=== PATIENT | female | born 1975 | race Caucasian/White ===

== ENCOUNTER → 2017-02-14 | Outpatient (CLI) | payer OTHER ==
[~2017-02-14] MED LIST: ACET-2267 PO; ASPI-992 PO; CEFD300C3 PO; HYDR25TA4 PO; IBUP-30 PO; LISI-552 PO; METO-272 PO; PARO20TA5 PO; PROP40TA5 PO; RT-ALBUINH IH
--- NOTE | 2017-02-14 13:42 | Diagnostic Imaging Report ---
INDICATION: Left knee pain. TECHNIQUE: AP and lateral views of the left knee were obtained. FINDINGS: There is mild medial and lateral joint space narrowing with osteophyte formation. There is more prominent patellofemoral spurring. There is no joint effusion. There is no fracture. IMPRESSION: Degenerative findings in the left knee as described above with no acute bony abnormality. Dictated by: Dictated on workstation # [id number]
== END ==
LOC: RAD 12:30
PROVIDERS: ATTEND Surgery
DX: Z02.71 Encounter for disability determination (principal)
CPT/HCPCS: 73560

== ENCOUNTER → 2017-03-30 | Outpatient (CLI) | payer MEDICAID, OTHER ==
[~2017-03-30] MED LIST changes: +RT-ALBUTEROL SULF 2.5 MG/3 ML PRE-MIX VIAL IH ONE
== END ==
LOC: RT 13:34
PROVIDERS: ATTEND Surgery
DX: Z02.71 Encounter for disability determination (principal); J44.9 Chronic obstructive pulmonary disease, unspecified; I10 Essential (primary) hypertension; E66.01 Morbid (severe) obesity due to excess calories; F41.9 Anxiety disorder, unspecified; F32.9 Major depressive disorder, single episode, unspecified; R48.0 Dyslexia and alexia
CPT/HCPCS: 94060; 94640

== ENCOUNTER → 2017-09-03 | Outpatient (CLI) | payer OTHER ==
--- NOTE | 2017-09-03 17:27 | Diagnostic Imaging Report ---
CLINICAL INDICATION: Patient with knee pain with standing or walking for two years. Patient has no known injury. EXAM: X-ray of the left knee, AP and lateral views. COMPARISON: X-ray of the left knee dated 02/14/2017. FINDINGS: There is no interval acute fracture or dislocation. There are stable bsfy-ut-bmzijdsd tricompartmental spurs seen. There is no significant compartment narrowing on these non-weightbearing views. There is no knee effusion. Relative lucent appearance of the lateral aspect of the proximal fibula, likely related to shadow of the adjacent tibia. IMPRESSION: Stable degenerative disease of the left knee with no acute fracture or dislocation. Dictated by: Dictated on workstation # [id number]
== END ==
LOC: RT 14:46
PROVIDERS: ATTEND Surgery
DX: Z02.71 Encounter for disability determination (principal)
CPT/HCPCS: 73560; 94060; 94640; 94729

== ENCOUNTER 2019-06-16 12:31 | Emergency (ER) | payer MEDICAID, OTHER ==
[~2019-06-16] VITALS: Ht 162.6 cm; Wt 166.0 kg
[~2019-06-16 12:31] MED LIST changes: -METO-272 PO; +METO-370 PO; -RT-ALBUTEROL SULF 2.5 MG/3 ML PRE-MIX VIAL IH ONE
[2019-06-16] MEDS ORDERED: ONDANSETRON 4 MG (ZOFRAN) ORAL DISSOLVE TAB PO STA (12:50)
--- NOTE | 2019-06-16 12:55 | ED Abdominal Pain ---
General Chief Complaint: Abdominal/GI Problems Stated Complaint: CONSTIPATION History of Present Illness Date Seen by Provider: Jun 16, 2019 Time Seen by Provider: 12:40 Initial Comments 43-year-old morbidly obese female presents for constipation 10 days. She takes hydrocodone regularly for low back pain. She reports she is instructed to take a stool softener daily but she ran out approximately a week ago and hasn't been taking them. For the last 2 days she's been taking vdye-gst-dbxaaak educations for constipation with no relief. She has not tried an enema or suppository. She sees El Petersen APRN at [facility]. Timing/Duration: 1 Week, Getting Worse Severity/Quality: Moderate Location: Generalized Abdomen Radiation: No Radiation Activities at Onset: None Modifying Factors: Improves With Defecating Associated Symptoms: Denies Symptoms, Nausea/Vomiting Allergies and Home Medications Allergies Coded Allergies: No Known Drug Allergies (Unverified , 01/12/16) Home Medications Acetaminophen 500 Mg Tablet, 500 MG PO Q6H PRN for PAIN, (Reported) Albuterol Sulfate 8.5 Gm Hfa.aer.ad, 2 PUFF IH Q4H PRN for SHORTNESS OF BREATH, (Reported) Budesonide/Formoterol Fumarate 10.2 Gm Hfa.aer.ad, 2 PUFF IH BID, (Reported) Cefdinir 300 Mg Capsule, 300 MG PO BID Take twice daily until all gone. Do not stop if you feel better. Prescribed by: ASHOK GORDILLO on 01/17/16938 Hydrochlorothiazide 25 Mg Tablet, 25 MG PO DAILY Prescribed by: ASHOK GORDILLO on 01/17/16938 Lisinopril 20 Mg Tablet, 40 MG PO DAILY Prescribed by: ASHOK GORDLILO on 01/17/16938 Metoprolol Succinate 50 Mg Tab.er.24h, 50 MG PO HS Prescribed by: ASHOK GORDILLO on 01/17/16938 Paroxetine HCl 20 Mg Tablet, 20 MG PO DAILY Prescribed by: ASHOK GORDILLO on 01/17/16938 Tiotropium Millen 1 Inh Aerp, 1 INH IH DAILY, (Reported) Patient Home Medication List Home Medication List Reviewed: Yes Review of Systems Review of Systems Constitutional: no symptoms reported, see HPI Gastrointestinal: See HPI, Abdomen Distended, Abdominal Pain, Constipated All Other Systems Reviewed Negative Unless Noted: Yes Past Jmfzfoy-Meokfm-Kylveu Hx Past Med/Social Hx: Reviewed Nursing Past Med/Soc Hx Patient Social History Recent Foreign Travel: No Contact w/Someone Who Travel: No Seasonal Allergies Seasonal Allergies: Yes Past Medical History Section, Gallbladder Reproductive Disorders: No 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 12.6oz. 173.261044wx; 64.07 BMI Method: General Appearance: WD/WN, obese Respiratory: chest non-tender, lungs clear, normal breath sounds Cardiovascular: normal peripheral pulses, regular rate, rhythm Gastrointestinal: normal bowel sounds, distended; No rebound; tenderness Neurologic/Psychiatric: no motor/sensory deficits, alert, normal mood/affect, oriented x 3 Skin: normal color, warm/dry Progress/Results/Core Measures Results/Orders My Orders Orders - STEVE RANDOLPH Ua Culture If Indicated (06/16/19 12:40) Ibuprofen Tablet (Motrin Tablet) (06/16/19 13:00) Ondansetron Oral Dissolve Tab (Zofran (06/16/19 12:50) Na Phos/Na Biphos Enema (Fleet Enema Brid (06/16/19 13:00) Magnesium Hydroxide Oral Susp (Mom Oral (06/16/19 13:45) Medications Given in ED Current Medications Medications Dose Ordered Sig/Beth Route Start Time Stop Time Status Last Admin Dose Admin Ibuprofen 800 mg ONCE ONCE PO 06/16/19 13:00 06/16/19 13:01 DC 06/16/19 12:59 800 MG Magnesium Hydroxide 30 ml ONCE ONCE PO 06/16/19 13:45 06/16/19 13:46 DC 06/16/19 13:48 30 ML Sodium Biphosphate/ Sodium Phosphate 1 ea ONCE ONCE TN 06/16/19 13:00 06/16/19 13:01 DC 06/16/19 13:00 1 EA Vital Signs/I&O 06/16/19 06/16/19 12:34 14:14 Temp 97.7 97.5 Pulse 129 109 Resp 24 20 B/P (MAP) 140/108 (119) 111/60 (77) Pulse Ox 95 95 O2 Delivery Room Air Room Air Progress Progress Note : Time: 12:40 Progress Note patient seen and evaluated. Will give Ibuprofen 800 mg for pain, Zofran 8 mg for nausea and a fleets enema. Discussed with patient the importance of taking her stool softener daily with her hydrocodone and not going more than 3 days without a BM. She also needs to increase her water intake. 1310 Fleets Enema administered, patient tolerated. No internal or external hemorrhoids appreciated. Crush patient to retain enema for 10 minutes. 1335 patient having small, hard stools. She is passing with minimal difficulty. Will give milk of magnesia 30 ML's. 1345 patiet passed large, softer stool. Discharge instructions and return precautions reviewed with the patient. All questions answered. Departure Impression Primary Impression: Constipation Qualified Codes: K59.03 - Drug induced constipation Disposition: 01 HOME, SELF-CARE Condition: Improved Departure-Patient Inst. Decision time for Depature: 13:30 Referrals: [facility],LOCAL PHYSICIAN (PCP) Primary Care Physician Patient Instructions: Constipation, Adult (DC) Add. Discharge Instructions: Increase water in diet, 16 ounces every 2 hours while awake. Resume taking your stool softener with your hydrocodone. Follow-up with your primary care provider if symptoms do not improve or worsen. Take MiraLAX, 1 capful twice daily, may decrease to once daily when having daily bowel movements. Drink Prune Juice or eat prunes, twice daily. Return to emergency department for new, urgent health care needs. All discharge instructions reviewed with patient and/or family. Voiced understanding. Copy Copies To 1: KATHERINE WRIGHT AMY ARNP Jun 16, 2019 12:55
[2019-06-16] MEDS ORDERED: IBUPROFEN 800 MG (MOTRIN) TAB PO ONE (13:00)
[2019-06-16] MEDS ORDERED: FLEET ENEMA ADULT 1 EA BTL PR ONE (13:00)
--- OUTSIDE RECORDS SUMMARY | 2019-06-16 13:08 | XMS REPORT ---
Author Author ARA ISRAEL Organization [facility] Address [address] [place] [address] Care Team Providers Care Right Of Way Supervisor Name Role Phone ARA ISRAEL Unavailable PROBLEMS Type Condition ICD9-CM Code NBF28-IC Code Onset Dates Condition Status SNOMED Code Problem Morbid obesity, unspecified obesity type E66.01 Active 253020823 Problem Morbid obesity due to excess calories E66.01 Active 540657702 Problem Other chronic pain G89.29 Active 50676005 Problem Hypertension, benign I10 Active 27802890 Problem Polyneuropathy G62.9 Active 07317050 Problem Chronic obstructive pulmonary disease, unspecified COPD type J44.9 Active 55849074 Problem Anxiety F41.9 Active 38183116 Problem Primary insomnia F51.01 Active 6168767 Problem Mood disorder F39 Active 39911759 ALLERGIES No Information ENCOUNTERS Encounter Location Date Diagnosis [place] [id number] [place] [id number] 27 Sep, 2018 [place] [id number] [place] [address] 15 Sep, 2018 [place] [id number] [place] [address] Sep, [facility] [address] [address] 14 Sep, 2018 Polyneuropathy G62.9 ; Anxiety F41.9 ; Hypertension, benign I10 and Other chronic pain G89.29 [facility] [address] [address] 13 Sep, 2018 Morbid obesity, unspecified obesity type E66.01 ; Anxiety F41.9 and Other chronic pain G89.29 [facility] [address] [address] Aug, [facility] [id number] [place] [address] Aug, Morbid obesity, unspecified obesity type E66.01 and Other chronic pain G89.29 [facility] [id number] [place] [address] Aug, [facility] [id number] [place] [address] Jul, Anxiety F41.9 [facility] [id number] [place] [address] Jun, Anxiety F41.9 [facility] [id number] [place] [address] Jun, Polyneuropathy G62.9 [facility] [id number] [place] [address] May, Anxiety F41.9 [facility] [id number] [place] [address] May, Polyneuropathy G62.9 ; Anxiety F41.9 and Hypertension, benign I10 [facility] [id number] [place] [address] Apr, [facility] [id number] [place] [address] Apr, Anxiety F41.9 [facility] [id number] [place] [address] March, [facility] [id number] [place] [address] March, Anxiety F41.9 [facility] [id number] [place] [address] March, Anxiety F41.9 [facility] [id number] [place] [address] Feb, Chronic obstructive pulmonary disease, unspecified COPD type J44.9 [facility] [id number] [place] [address] Feb, [facility] [address] [address] Feb, [facility] [id number] [place] [address] Feb, Anxiety F41.9 [facility] [address] [address] Jan, Anxiety F41.9 [facility] [address] [address] Dec, Anxiety F41.9 [facility] [address] [address] Dec, [facility] [address] [address] Nov, BMI 50.0-59.9, adult Z68.43 ; Other chronic pain G89.29 ; Anxiety F41.9 and Vagina, candidiasis B37.3 [facility] [id number] [place] [address] Nov, Anxiety F41.9 [facility] [id number] [place] [address] Nov, Acute nasopharyngitis J00 and BMI 50.0-59.9, adult Z68.43 [facility] [id number] [place] [address] Nov, [facility] [address] [address] Oct, Anxiety F41.9 [facility] [id number] [place] [address] Oct, [facility] [address] [address] Sep, Anxiety F41.9 [facility] [id number] [place] [address] Sep, [facility] [id number] [place] [address] Sep, Anxiety F41.9 [facility] [id number] [place] [address] Aug, Primary insomnia F51.01 [facility] [address] [address] Aug, [facility] [address] [address] Aug, Anxiety F41.9 [facility] [address] [address] Jul, Primary insomnia F51.01 [facility] [address] [address] Jul, [facility] [id number] [place] [address] 08 Jul, 2017 Strep throat J02.0 [facility] [id number] [place] [address] Jul, Anxiety F41.9 [facility] [id number] [place] [address] Jun, Primary insomnia F51.01 ; Mood disorder F39 and Polyneuropathy G62.9 [facility] [id number] [place] [address] Jun, Anxiety F41.9 and Other chronic pain G89.29 [facility] [id number] [place] [address] May, Chronic obstructive pulmonary disease, unspecified COPD type J44.9 [facility] [address] [address] May, Anxiety F41.9 and Other chronic pain G89.29 [facility] [id number] [place] [address] Apr, Anxiety F41.9 and Other chronic pain G89.29 [facility] [id number] [place] [address] March, Morbid obesity due to excess calories E66.01 [facility] [id number] [place] [address] Feb, Morbid obesity due to excess calories E66.01 and SOB (shortness of breath) R06.02 [facility] [id number] [place] [address] Feb, [facility] [id number] [place] [address] Jan, [facility] [id number] [place] [address] Jan, [facility] [id number] [place] [address] Jan, Morbid obesity due to excess calories E66.01 [facility] [id number] [place] [address] Jan, [facility] [id number] [place] [address] Dec, [facility] [id number] [place] [address] Dec, [facility] [id number] [place] [address] Nov, [facility] [id number] [place] [address] Nov, [facility] [address] [address] Oct, [facility] [address] [place] [address] Oct, Sore throat J02.9 and Strep throat J02.0 [facility] [address] [place] [address] Oct, [facility] [id number] [place] [address] Oct, [facility] [id number] [place] [address] Oct, [facility] [id number] [place] [address] Sep, [facility] [id number] [place] [address] Sep, [facility] [id number] [place] [address] Aug, [facility] [id number] [place] [address] Aug, Morbid obesity, unspecified obesity type E66.01 ; Pain in right leg M79.604 ; Pain of left leg M79.605 ; Other chronic pain G89.29 and Low back pain M54.5 [facility] [address] [place] [address] Aug, [facility] [id number] [place] [address] Aug, [facility] [address] [place] [address] Jul, [facility] [id number] [place] [address] Jul, [facility] [address] [place] [address] Jun, [facility] [id number] [place] [address] Jun, Anxiety F41.9 ; Chronic obstructive pulmonary disease, unspecified COPD type J44.9 ; Low back pain M54.5 and Other chronic pain G89.29 [facility] [id number] [place] [address] Jun, [facility] [address] [address] Jun, [facility] [address] [address] May, Other chronic pain G89.29 ; Pain in left knee M25.562 and Anxiety F41.9 [place] [address] [address] May, [place] [address] [address] Apr, [place] [address] [address] March, MARIELENA (obstructive sleep apnea) G47.33 [place] [id number] [place] [address] Feb, [facility] [id number] [place] [address] Feb, MARIELENA (obstructive sleep apnea) G47.33 and Acute upper respiratory infection, unspecified J06.9 [place] [id number] [place] [address] Feb, [facility] [id number] [place] [address] Jan, Pain in right leg M79.604 ; Pain of left leg M79.605 and Obesity E66.9 [facility] [id number] [place] [address] Jan, [place] [address] [address] Jan, [facility] [address] [facility] [id number] [address] Jan, COPD exacerbation J44.1 ; 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 ; Resistant hypertension I10 ; Nonischemic cardiomyopathy I42.9 and Anxiety about health F41.8 [facility] [address] [facility] [id number] [address] Dec, [place] [address] [facility] [id number] [address] Dec, Hypertension, benign I10 ; Tachycardia R00.0 ; Anxiety F41.9 and Pain in unspecified knee M25.569 IMMUNIZATIONS No Known Immunizations SOCIAL HISTORY Never Assessed REASON FOR VISIT med refill PLAN OF CARE VITAL SIGNS MEDICATIONS Medication Instructions Dosage Frequency Start Date End Date Duration Status Meloxicam 7.5 MG Orally 2 times a day 1 tablet 12h 30 Active RESULTS No Results PROCEDURES No Known procedures INSTRUCTIONS MEDICATIONS ADMINISTERED No Known Medications MEDICAL (GENERAL) HISTORY Type Description Date Medical History Hx of pneumonia Medical History HTN Medical History chronic pain in knees and back Medical History anxiety Surgical History x2 Surgical History cholecystectomy Surgical History tubal ligation Hospitalization History [facility] Pneumonia 01/12/16
--- OUTSIDE RECORDS SUMMARY | 2019-06-16 13:08 | XMS REPORT ---
Author Author [facility] Address [address] [place] [address] Care Team Providers Care Chief Dog License Inspector Name Role Phone RENETTAFCO RHOADES Unavailable PROBLEMS Type Condition ICD9-CM Code UEW05-BG Code Onset Dates Condition Status SNOMED Code Problem Morbid obesity, unspecified obesity type E66.01 Active 766070833 Problem Morbid obesity due to excess calories E66.01 Active 567054656 Problem Other chronic pain G89.29 Active 18352731 Problem Hypertension, benign I10 Active 95474866 Problem Polyneuropathy G62.9 Active 82977665 Problem Chronic obstructive pulmonary disease, unspecified COPD type J44.9 Active 88726369 Problem Anxiety F41.9 Active 27445047 Problem Primary insomnia F51.01 Active 8063489 Problem Mood disorder F39 Active 36526298 ALLERGIES No Known Allergies ENCOUNTERS Encounter Location Date Diagnosis [facility] [id number] [place] [address] Oct, Other viral agents as the cause of diseases classified elsewhere B97.89 ; Acute nasopharyngitis J00 and BMI 60.0-69.9, adult Z68.44 [facility] [id number] [place] [address] Oct, Morbid obesity, unspecified obesity type E66.01 [facility] [id number] [place] [address] Sep, [facility] [address] [address] Sep, [facility] [id number] [place] [address] 14 Sep, 2018 [facility] [id number] [place] [address] Sep, Polyneuropathy G62.9 ; Anxiety F41.9 ; Hypertension, benign I10 and Other chronic pain G89.29 [facility] [address] [address] Sep, Morbid obesity, unspecified obesity type E66.01 ; Anxiety F41.9 and Other chronic pain G89.29 [facility] [address] [address] Aug, [facility] [address] [address] Aug, Morbid obesity, unspecified obesity type E66.01 and Other chronic pain G89.29 [facility] [address] [address] Aug, [facility] [address] [address] Jul, Anxiety F41.9 [address] [address] Jun, Anxiety F41.9 [address] [place] [address] Jun, Polyneuropathy G62.9 [address] [address] May, Anxiety F41.9 [id number] [place] [address] May, Polyneuropathy G62.9 ; Anxiety F41.9 and Hypertension, benign I10 [facility] [address] [address] Apr, [facility] [address] [address] Apr, Anxiety F41.9 [address] [address] March, [facility] [id number] [place] [address] March, Anxiety F41.9 [facility] [address] [address] March, Anxiety F41.9 [facility] [address] [address] Feb, Chronic obstructive pulmonary disease, unspecified COPD type J44.9 [facility] [address] [address] Feb, [facility] [address] [address] Feb, [facility] [address] [address] Feb, Anxiety F41.9 [facility] [address] [address] Jan, Anxiety F41.9 [facility] [address] [address] Dec, Anxiety F41.9 [facility] [id number] [place] [address] Dec, [facility] [address] [address] Nov, BMI 50.0-59.9, adult Z68.43 ; Other chronic pain G89.29 ; Anxiety F41.9 and Vagina, candidiasis B37.3 [facility] [address] [address] Nov, Anxiety F41.9 [facility] [id number] [place] [address] Nov, Acute nasopharyngitis J00 and BMI 50.0-59.9, adult Z68.43 [facility] [id number] [place] [address] Nov, [facility] [id number] [place] [address] Oct, Anxiety F41.9 [facility] [id number] [place] [address] Oct, [facility] [id number] [place] [address] Sep, Anxiety F41.9 [facility] [id number] [place] [address] Sep, [facility] [id number] [place] [address] Sep, Anxiety F41.9 [facility] [id number] [place] [address] Aug, Primary insomnia F51.01 [facility] [id number] [place] [address] Aug, [facility] [id number] [place] [address] Aug, Anxiety F41.9 [facility] [id number] [place] [address] Jul, Primary insomnia F51.01 [facility] [id number] [place] [address] Jul, [facility] [id number] [place] [address] Jul, Strep throat J02.0 [facility] [id number] [place] [address] Jul, Anxiety F41.9 [facility] [id number] [place] [address] Jun, Primary insomnia F51.01 ; Mood disorder F39 and Polyneuropathy G62.9 [facility] [address] [place] [address] Jun, Anxiety F41.9 and Other chronic pain G89.29 [facility] [id number] [place] [address] May, Chronic obstructive pulmonary disease, unspecified COPD type J44.9 [facility] [id number] [place] [address] May, Anxiety F41.9 and Other chronic pain G89.29 [facility] [id number] [place] [address] Apr, Anxiety F41.9 and Other chronic pain G89.29 [facility] [id number] [place] [address] March, Morbid obesity due to excess calories E66.01 [facility] [id number] [place] [address] Feb, Morbid obesity due to excess calories E66.01 and SOB (shortness of breath) R06.02 [facility] [id number] [place] [address] Feb, [id number] [place] [address] Jan, [facility] [id number] [place] [address] Jan, [facility] [id number] [place] [address] Jan, Morbid obesity due to excess calories E66.01 [facility] [id number] [place] [address] Jan, [facility] [id number] [place] [address] Dec, [facility] [address] [place] [address] Dec, [facility] [id number] [place] [address] Nov, [facility] [id number] [place] [address] Nov, [facility] [id number] [place] [address] Oct, [facility] [id number] [place] [address] Oct, Sore throat J02.9 and Strep throat J02.0 [facility] [id number] [place] [address] Oct, [facility] [id number] [place] [address] Oct, [facility] [id number] [place] [address] Oct, [facility] [id number] [place] [address] Sep, [facility] [id number] [place] [address] Sep, [facility] [address] [place] [address] Aug, [facility] [id number] [place] [address] Aug, Morbid obesity, unspecified obesity type E66.01 ; Pain in right leg M79.604 ; Pain of left leg M79.605 ; Other chronic pain G89.29 and Low back pain M54.5 [facility] [address] [address] Aug, [facility] [id number] [place] [address] Aug, [facility] [address] [place] [address] Jul, [facility] [id number] [place] [address] Jul, [facility] [id number] [place] [address] Jun, [facility] [id number] [place] [address] Jun, Anxiety F41.9 ; Chronic obstructive pulmonary disease, unspecified COPD type J44.9 ; Low back pain M54.5 and Other chronic pain G89.29 [facility] [id number] [place] [address] Jun, [facility] [id number] [place] [address] Jun, [facility] [id number] [place] [address] May, Other chronic pain G89.29 ; Pain in left knee M25.562 and Anxiety F41.9 [facility] [id number] [place] [address] May, [facility] [id number] [place] [address] Apr, [facility] [id number] [place] [address] March, MARIELENA (obstructive sleep apnea) G47.33 [facility] [address] [place] [address] Feb, [facility] [id number] [place] [address] Feb, MARIELENA (obstructive sleep apnea) G47.33 and Acute upper respiratory infection, unspecified J06.9 [facility] [id number] [place] [address] Feb, [address] [place] [address] Jan, Pain in right leg M79.604 ; Pain of left leg M79.605 and Obesity E66.9 [id number] [place] [address] Jan, [address] [address] Jan, [id number] [place] [address] Jan, COPD exacerbation J44.1 ; 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 ; Resistant hypertension I10 ; Nonischemic cardiomyopathy I42.9 and Anxiety about health F41.8 [id number] [place] [address] Dec, [id number] [place] [address] Dec, Hypertension, benign I10 ; Tachycardia R00.0 ; Anxiety F41.9 and Pain in unspecified knee M25.569 IMMUNIZATIONS No Known Immunizations SOCIAL HISTORY Never Assessed REASON FOR VISIT Congestion, cough, fever at night, headache; symptoms x 3-4 days - NIKITA [place] PLAN OF CARE Activity Details Follow Up as needed or reg fu with pcp Reason: VITAL SIGNS Height 66 in 2018-10-30 Weight 373.2 lbs 2018-10-30 Temperature 97.3 degrees Fahrenheit 2018-10-30 Heart Rate 116 bpm 2018-10-30 Respiratory Rate 20 2018-10-30 BMI 60.23 kg/m2 2018-10-30 Blood pressure systolic 100 mmHg 2018-10-30 Blood pressure diastolic 60 mmHg 2018-10-30 MEDICATIONS Medication Instructions Dosage Frequency Start Date End Date Duration Status Meloxicam 7.5 MG Orally 2 times a day 1 tablet 12h 30 Active Tessalon Perles 100 mg Orally Three times a day 1 capsule as needed 8h Oct, 10 days Active Paroxetine HCl 20 MG Orally Once a day 1 tablet in the morning 24h 30 Active Levothyroxine Sodium 25 MCG Orally Once a day 1 tablet on an empty stomach in the morning 24h 15 Sep, 2018 30 day(s) Active [place] 7.5-325 MG Orally every 6 hrs 1 tablet as needed 6h 11 Oct, 2018 28 days Active Cetirizine HCl 10 MG TAKE ONE TABLET BY MOUTH ONCE DAILY NEEDED 30 Active Toprol XL 50 mg Orally Once a day 1 tablet 24h 16 May, 2018 30 day(s) Active Amitriptyline HCl 25 MG TAKE ONE TABLET BY MOUTH ONCE DAILY (MAKE APPOINTMENT TO SEE MIGUEL ANGEL) 30 Active Lisinopril 20 MG TAKE TWO TABLETS BY MOUTH ONCE DAILY 90 Active Clonazepam 0.5 MG Orally Twice a day 1 tablet 12h 29 May, 2016 28 days Active Oxygen 3 L by nasal cannula Active Spiriva HandiHaler 18 MCG INHALE CONTENTS OF ONE CAPSULE BY MOUTH ONCE DAILY (TWO INHALATIONS PER ONE CAPSULE) 30 30 Active GuaiFENesin ER 1200 MG Orally every 12 hrs 1 tablet as needed 12h 12 Oct, 2018 10 days Active Hydrochlorothiazide 25 MG TAKE ONE TABLET BY MOUTH ONCE DAILY 90 Active Symbicort 160-4.5 MCG/ACT INHALE TWO PUFFS BY MOUTH TWICE DAILY 30 Active ProAir HFA 108 (90 Base) MCG/ACT Inhalation every 6 hrs 2 puffs as needed 6h 20 Feb, 2018 Active RESULTS No Results PROCEDURES No Known procedures INSTRUCTIONS MEDICATIONS ADMINISTERED No Known Medications MEDICAL (GENERAL) HISTORY Type Description Date Medical History Hx of pneumonia Medical History HTN Medical History chronic pain in knees and back Medical History anxiety Surgical History x2 Surgical History cholecystectomy Surgical History tubal ligation Hospitalization History [facility] Pneumonia 01/12/16
--- OUTSIDE RECORDS SUMMARY | 2019-06-16 13:08 | XMS REPORT ---
Author Author ARA ISRAEL Organization [facility] Address [address] [place] [address] Care Team Providers Care Fertilizer Mixer Name Role Phone ARA ISRAEL Unavailable PROBLEMS Type Condition ICD9-CM Code YLS73-XT Code Onset Dates Condition Status SNOMED Code Problem Morbid obesity, unspecified obesity type E66.01 Active 355198670 Problem Morbid obesity due to excess calories E66.01 Active 122516587 Problem Other chronic pain G89.29 Active 87254976 Problem Hypertension, benign I10 Active 11452478 Problem Polyneuropathy G62.9 Active 00334899 Problem Chronic obstructive pulmonary disease, unspecified COPD type J44.9 Active 40655180 Problem Anxiety F41.9 Active 60639766 Problem Primary insomnia F51.01 Active 7940021 Problem Mood disorder F39 Active 94336098 ALLERGIES No Information ENCOUNTERS Encounter Location Date Diagnosis [place] [address] [address] Oct, Morbid obesity, unspecified obesity type E66.01 [place] [address] [place] [id number] [place] [phone] 27 Sep, 2018 [place] [address] [place] [id number] [place] [phone] 15 Sep, 2018 [facility] [address] [place] [id number] [place] [phone] 14 Sep, 2018 [place] [address] [place] [id number] [place] [address] 14 Sep, 2018 Polyneuropathy G62.9 ; Anxiety F41.9 ; Hypertension, benign I10 and Other chronic pain G89.29 [facility] [address] [place] [id number] [place] [phone] 13 Sep, 2018 Morbid obesity, unspecified obesity type E66.01 ; Anxiety F41.9 and Other chronic pain G89.29 [facility] [address] [place] [id number] [place] [address] Aug, [facility] [address] [place] [id number] [place] [address] Aug, Morbid obesity, unspecified obesity type E66.01 and Other chronic pain G89.29 [facility] [address] [place] [id number] [place] [phone] Aug, [facility] [address] [place] [id number] [place] [address] Jul, Anxiety F41.9 [facility] [address] [place] [id number] [place] [address] Jun, Anxiety F41.9 [facility] [address] [place] [id number] [place] [address] Jun, Polyneuropathy G62.9 [facility] [address] [place] [id number] [place] [address] May, Anxiety F41.9 [facility] [address] [place] [id number] [place] [phone] May, Polyneuropathy G62.9 ; Anxiety F41.9 and Hypertension, benign I10 [facility] [address] [place] [id number] [place] [address] Apr, [facility] [address] [place] [id number] [place] [address] Apr, Anxiety F41.9 [facility] [address] [place] [id number] [place] [address] March, [facility] [address] [place] [id number] [place] [address] March, Anxiety F41.9 [facility] [address] [place] [id number] [place] [address] March, Anxiety F41.9 [facility] [address] [place] [id number] [place] [address] Feb, Chronic obstructive pulmonary disease, unspecified COPD type J44.9 [facility] [address] [place] [id number] [place] [phone] Feb, [facility] [address] [place] [id number] [place] [phone] Feb, [facility] [address] [address] Feb, Anxiety F41.9 [facility] [address] [address] Jan, Anxiety F41.9 [facility] [address] [address] Dec, Anxiety F41.9 [facility] [address] [address] Dec, [facility] [address] [place] [id number] [place] [address] Nov, BMI 50.0-59.9, adult Z68.43 ; Other chronic pain G89.29 ; Anxiety F41.9 and Vagina, candidiasis B37.3 [facility] [address] [place] [id number] [place] [address] Nov, Anxiety F41.9 [facility] [address] [place] [id number] [place] [address] Nov, Acute nasopharyngitis J00 and BMI 50.0-59.9, adult Z68.43 [facility] [address] [place] [id number] [place] [address] Nov, [facility] [address] [place] [id number] [place] [address] Oct, Anxiety F41.9 [facility] [address] [place] [address] [place] [address] Oct, [facility] [address] [place] [id number] [place] [address] Sep, Anxiety F41.9 [facility] [address] [place] [id number] [place] [address] Sep, [facility] [address] [address] Sep, Anxiety F41.9 [facility] [address] [address] Aug, Primary insomnia F51.01 [facility] [address] [address] Aug, [facility] [address] [address] Aug, Anxiety F41.9 [facility] [address] [place] [id number] [place] [address] Jul, Primary insomnia F51.01 [facility] [address] [place] [id number] [place] [address] Jul, [facility] [address] [place] [id number] [place] [address] Jul, Strep throat J02.0 [facility] [address] [place] [id number] [place] [address] Jul, Anxiety F41.9 [facility] [address] [place] [id number] [place] [address] Jun, Primary insomnia F51.01 ; Mood disorder F39 and Polyneuropathy G62.9 [facility] [address] [place] [id number] [place] [address] Jun, Anxiety F41.9 and Other chronic pain G89.29 [facility] [address] [place] [id number] [place] [address] May, Chronic obstructive pulmonary disease, unspecified COPD type J44.9 [facility] [address] [place] [id number] [place] [address] May, Anxiety F41.9 and Other chronic pain G89.29 [facility] [address] [place] [id number] [place] [address] Apr, Anxiety F41.9 and Other chronic pain G89.29 [facility] [address] [place] [id number] [place] [address] March, Morbid obesity due to excess calories E66.01 [facility] [address] [place] [id number] [place] [address] Feb, Morbid obesity due to excess calories E66.01 and SOB (shortness of breath) R06.02 [facility] [address] [place] [id number] [place] [phone] Feb, [facility] [address] [place] [id number] [place] [address] Jan, [facility] [address] [place] [id number] [place] [address] Jan, [facility] [address] [place] [id number] [place] [address] Jan, Morbid obesity due to excess calories E66.01 [facility] [address] [place] [id number] [place] [address] Jan, [facility] [address] [place] [id number] [place] [address] Dec, [facility] [address] [place] [id number] [place] [address] Dec, [facility] [address] [place] [id number] [place] [address] Nov, [facility] [address] [place] [id number] [place] [address] Nov, [facility] [address] [address] Oct, [facility] [address] [address] Oct, Sore throat J02.9 and Strep throat J02.0 [facility] [address] [address] Oct, [facility] [id number] [place] [address] Oct, [facility] [address] [place] [id number] [place] [address] Oct, [facility] [address] [place] [id number] [place] [address] Sep, [facility] [address] [place] [id number] [place] [address] Sep, [facility] [id number] [place] [address] Aug, [facility] [address] [place] [id number] [place] [address] Aug, Morbid obesity, unspecified obesity type E66.01 ; Pain in right leg M79.604 ; Pain of left leg M79.605 ; Other chronic pain G89.29 and Low back pain M54.5 [facility] [address] [address] Aug, [facility] [address] [address] Aug, [facility] [address] [address] 29 Jul, 2016 [facility] [address] [address] 28 Jul, 2016 [facility] [address] [place] [id number] [place] [address] Jun, [facility] [address] [place] [id number] [place] [address] Jun, Anxiety F41.9 ; Chronic obstructive pulmonary disease, unspecified COPD type J44.9 ; Low back pain M54.5 and Other chronic pain G89.29 [facility] [address] [place] [id number] [place] [address] Jun, [facility] [address] [place] [id number] [place] [address] Jun, [facility] [address] [place] [id number] [place] [address] May, Other chronic pain G89.29 ; Pain in left knee M25.562 and Anxiety F41.9 [facility] [address] [place] [id number] [place] [address] May, [facility] [address] [place] [id number] [place] [address] Apr, [facility] [address] [place] [id number] [place] [address] March, MARIELENA (obstructive sleep apnea) G47.33 [facility] [address] [place] [id number] [place] [phone] Feb, [facility] [address] [place] [id number] [place] [address] Feb, MARIELENA (obstructive sleep apnea) G47.33 and Acute upper respiratory infection, unspecified J06.9 [facility] [address] [place] [id number] [place] [address] Feb, [facility] [address] [place] [id number] [place] [address] Jan, Pain in right leg M79.604 ; Pain of left leg M79.605 and Obesity E66.9 [facility] [address] [place] [id number] [place] [address] Jan, [facility] [address] [facility] [id number] [address] Jan, [place] [address] [place] [id number] [address] Jan, COPD exacerbation J44.1 ; 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 ; Resistant hypertension I10 ; Nonischemic cardiomyopathy I42.9 and Anxiety about health F41.8 [place] [address] [place] [id number] [address] Dec, [place] [address] [place] [id number] [address] Dec, Hypertension, benign I10 ; Tachycardia R00.0 ; Anxiety F41.9 and Pain in unspecified knee M25.569 IMMUNIZATIONS No Known Immunizations SOCIAL HISTORY Never Assessed REASON FOR VISIT Controlled Med Refill PLAN OF CARE VITAL SIGNS MEDICATIONS Medication Instructions Dosage Frequency Start Date End Date Duration Status Clonazepam 0.5 MG Orally Twice a day 1 tablet 12h May, 28 days Active [place] 7.5-325 MG Orally every 6 hrs 1 tablet as needed 6h Oct, 28 days Active RESULTS No Results PROCEDURES No Known procedures INSTRUCTIONS MEDICATIONS ADMINISTERED No Known Medications MEDICAL (GENERAL) HISTORY Type Description Date Medical History Hx of pneumonia Medical History HTN Medical History chronic pain in knees and back Medical History anxiety Surgical History x2 Surgical History cholecystectomy Surgical History tubal ligation Hospitalization History [facility] Pneumonia 01/12/16
--- OUTSIDE RECORDS SUMMARY | 2019-06-16 13:09 | XMS REPORT ---
Author Author ARA ISRAEL Organization [facility] Address [address] [place] [address] Care Team Providers Care Atmospheric Technician Name Role Phone ARA ISRAEL Unavailable PROBLEMS Type Condition ICD9-CM Code MUE71-AK Code Onset Dates Condition Status SNOMED Code Problem Morbid obesity, unspecified obesity type E66.01 Active 758879858 Problem Morbid obesity due to excess calories E66.01 Active 182902488 Problem Other chronic pain G89.29 Active 51052763 Problem Hypertension, benign I10 Active 08828833 Problem Polyneuropathy G62.9 Active 99997357 Problem Chronic obstructive pulmonary disease, unspecified COPD type J44.9 Active 19023067 Problem Anxiety F41.9 Active 47911362 Problem Primary insomnia F51.01 Active 7211809 Problem Mood disorder F39 Active 28012022 ALLERGIES No Information ENCOUNTERS Encounter Location Date Diagnosis [facility] [id number] [place] [address] 14 Sep, 2018 [facility] [id number] [place] [address] 14 Sep, 2018 Polyneuropathy G62.9 ; Anxiety F41.9 ; Hypertension, benign I10 and Other chronic pain G89.29 [facility] [address] [place] [address] Sep, Morbid obesity, unspecified obesity type E66.01 ; Anxiety F41.9 and Other chronic pain G89.29 [facility] [id number] [place] [address] 24 Aug, 2018 [place] [id number] [place] [address] 17 Aug, 2018 Morbid obesity, unspecified obesity type E66.01 and Other chronic pain G89.29 [facility] [id number] [place] [address] Aug, [facility] [id number] [place] [address] Jul, Anxiety F41.9 [facility] [id number] [place] [address] Jun, Anxiety F41.9 [facility] [address] [address] Jun, Polyneuropathy G62.9 [facility] [id number] [place] [address] May, Anxiety F41.9 [facility] [id number] [place] [address] May, Polyneuropathy G62.9 ; Anxiety F41.9 and Hypertension, benign I10 [facility] [id number] [place] [address] Apr, [facility] [id number] [place] [address] Apr, Anxiety F41.9 [facility] [id number] [place] [address] March, [facility] [id number] [place] [address] March, Anxiety F41.9 [facility] [id number] [place] [address] March, Anxiety F41.9 [facility] [id number] [place] [address] Feb, Chronic obstructive pulmonary disease, unspecified COPD type J44.9 [facility] [id number] [place] [address] Feb, [facility] [id number] [place] [address] Feb, [facility] [id number] [place] [address] Feb, Anxiety F41.9 [facility] [address] [address] Jan, Anxiety F41.9 [facility] [address] [address] Dec, Anxiety F41.9 [facility] [address] [address] Dec, [facility] [address] [address] Nov, BMI 50.0-59.9, adult Z68.43 ; Other chronic pain G89.29 ; Anxiety F41.9 and Vagina, candidiasis B37.3 [facility] [address] [address] Nov, Anxiety F41.9 [facility] [id number] [place] [address] Nov, Acute nasopharyngitis J00 and BMI 50.0-59.9, adult Z68.43 [facility] [id number] [place] [address] Nov, [facility] [address] [address] Oct, Anxiety F41.9 [facility] [id number] [place] [address] Oct, [facility] [address] [address] Sep, Anxiety F41.9 [facility] [id number] [place] [address] Sep, [facility] [address] [address] Sep, Anxiety F41.9 [facility] [id number] [place] [address] Aug, Primary insomnia F51.01 [facility] [id number] [place] [address] Aug, [facility] [id number] [place] [address] Aug, Anxiety F41.9 [facility] [id number] [place] [address] Jul, Primary insomnia F51.01 [facility] [id number] [place] [address] Jul, [facility] [id number] [place] [address] Jul, Strep throat J02.0 [facility] [id number] [place] [address] Jul, Anxiety F41.9 [facility] [id number] [place] [address] Jun, Primary insomnia F51.01 ; Mood disorder F39 and Polyneuropathy G62.9 [facility] [id number] [place] [address] Jun, Anxiety F41.9 and Other chronic pain G89.29 [facility] [id number] [place] [address] May, Chronic obstructive pulmonary disease, unspecified COPD type J44.9 [facility] [id number] [place] [address] May, Anxiety F41.9 and Other chronic pain G89.29 [facility] [id number] [place] [address] Apr, Anxiety F41.9 and Other chronic pain G89.29 [facility] [address] [address] March, Morbid obesity due to excess calories E66.01 [facility] [address] [place] [address] Feb, Morbid obesity due to excess calories E66.01 and SOB (shortness of breath) R06.02 [facility] [id number] [place] [address] Feb, [facility] [id number] [place] [address] Jan, [facility] [id number] [place] [address] Jan, [facility] [id number] [place] [address] Jan, Morbid obesity due to excess calories E66.01 [facility] [id number] [place] [address] Jan, [facility] [id number] [place] [address] Dec, [facility] [id number] [place] [address] Dec, [facility] [address] [place] [address] Nov, [facility] [address] [place] [address] Nov, [facility] [id number] [place] [address] Oct, [facility] [address] [place] [address] Oct, Sore throat J02.9 and Strep throat J02.0 [facility] [address] [place] [address] Oct, [facility] [address] [place] [address] Oct, [facility] [id number] [place] [address] Oct, [facility] [address] [place] [address] Sep, [facility] [id number] [place] [address] Sep, [facility] [address] [place] [address] Aug, [facility] [address] [place] [address] Aug, Morbid obesity, unspecified obesity type E66.01 ; Pain in right leg M79.604 ; Pain of left leg M79.605 ; Other chronic pain G89.29 and Low back pain M54.5 [facility] [address] [place] [address] Aug, [facility] [id number] [place] [address] Aug, [facility] [id number] [place] [address] Jul, [facility] [address] [place] [address] Jul, [facility] [address] [place] [address] Jun, [facility] [id number] [place] [address] Jun, Anxiety F41.9 ; Chronic obstructive pulmonary disease, unspecified COPD type J44.9 ; Low back pain M54.5 and Other chronic pain G89.29 [facility] [address] [place] [address] Jun, [facility] [id number] [place] [address] Jun, [facility] [id number] [place] [address] May, Other chronic pain G89.29 ; Pain in left knee M25.562 and Anxiety F41.9 [facility] [address] [address] May, [facility] [id number] [place] [address] Apr, [facility] [id number] [place] [address] March, MARIELENA (obstructive sleep apnea) G47.33 [facility] [id number] [place] [address] Feb, [facility] [id number] [place] [address] Feb, MARIELENA (obstructive sleep apnea) G47.33 and Acute upper respiratory infection, unspecified J06.9 [facility] [id number] [place] [address] Feb, [facility] [id number] [place] [address] Jan, Pain in right leg M79.604 ; Pain of left leg M79.605 and Obesity E66.9 [facility] [id number] [place] [address] Jan, [facility] [id number] [place] [address] Jan, [facility] [id number] [place] [address] Jan, COPD exacerbation J44.1 ; 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 ; Resistant hypertension I10 ; Nonischemic cardiomyopathy I42.9 and Anxiety about health F41.8 [facility] [address] [facility] [id number] [place] [address] Dec, [facility] [address] [facility] [id number] [address] Dec, Hypertension, benign I10 ; Tachycardia R00.0 ; Anxiety F41.9 and Pain in unspecified knee M25.569 IMMUNIZATIONS No Known Immunizations SOCIAL HISTORY Never Assessed REASON FOR VISIT Lab (walk-in) PLAN OF CARE Activity Details Pending Test LIPID PANEL Pending Test CMP Pending Test CBC Pending Test TSH Pending Test PDM - 09 PANEL (PROFILE 1) VITAL SIGNS MEDICATIONS Unknown Medications RESULTS No Results PROCEDURES Procedure Date Ordered Result Body Site LAB NOT BILLED BY [facility] Oct 02, 2018 INSTRUCTIONS MEDICATIONS ADMINISTERED No Known Medications MEDICAL (GENERAL) HISTORY Type Description Date Medical History Hx of pneumonia Medical History HTN Medical History chronic pain in knees and back Medical History anxiety Surgical History x2 Surgical History cholecystectomy Surgical History tubal ligation Hospitalization History [facility] Pneumonia 01/12/16
--- OUTSIDE RECORDS SUMMARY | 2019-06-16 13:09 | XMS REPORT ---
Author Author ARA ISRAEL Organization [facility] Address [address] [place] [address] Care Team Providers Care Rock Wool Insulator Name Role Phone ARA ISRAEL Unavailable PROBLEMS Type Condition ICD9-CM Code OOK57-PY Code Onset Dates Condition Status SNOMED Code Problem Morbid obesity, unspecified obesity type E66.01 Active 925855095 Problem Morbid obesity due to excess calories E66.01 Active 153004828 Problem Other chronic pain G89.29 Active 49539844 Problem Hypertension, benign I10 Active 99364669 Problem Polyneuropathy G62.9 Active 65521623 Problem Chronic obstructive pulmonary disease, unspecified COPD type J44.9 Active 77688916 Problem Anxiety F41.9 Active 51756611 Problem Primary insomnia F51.01 Active 2556004 Problem Mood disorder F39 Active [id number] ALLERGIES No Information ENCOUNTERS Encounter Location Date Diagnosis [place] [id number] [place] [id number] 14 Sep, 2018 [place] [id number] [place] [id number] 14 Sep, 2018 Polyneuropathy G62.9 ; Anxiety F41.9 ; Hypertension, benign I10 and Other chronic pain G89.29 [place] [id number] [place] [address] Sep, Morbid obesity, unspecified obesity type E66.01 ; Anxiety F41.9 and Other chronic pain G89.29 [place] [id number] [place] [address] 24 Aug, 2018 [place] [id number] [place] [address] 17 Aug, 2018 Morbid obesity, unspecified obesity type E66.01 and Other chronic pain G89.29 [place] [id number] [place] [address] Aug, [facility] [id number] [place] [address] Jul, Anxiety F41.9 [facility] [id number] [place] [address] Jun, Anxiety F41.9 [facility] [address] [address] Jun, Polyneuropathy G62.9 [facility] [id number] [place] [address] May, Anxiety F41.9 [facility] [id number] [place] [address] May, Polyneuropathy G62.9 ; Anxiety F41.9 and Hypertension, benign I10 [facility] [id number] [place] [address] Apr, [facility] [id number] [place] [address] Apr, Anxiety F41.9 [facility] [id number] [place] [address] March, [facility] [id number] [place] [address] March, Anxiety F41.9 [facility] [id number] [place] [id number] March, Anxiety F41.9 [facility] [id number] [place] [id number] Feb, Chronic obstructive pulmonary disease, unspecified COPD type J44.9 [facility] [id number] [place] [address] Feb, [facility] [id number] [place] [id number] Feb, [facility] [id number] [place] [address] Feb, Anxiety F41.9 [facility] [address] [address] Jan, Anxiety F41.9 [facility] [address] [address] Dec, Anxiety F41.9 [facility] [address] [address] Dec, [facility] [address] [address] Nov, BMI 50.0-59.9, adult Z68.43 ; Other chronic pain G89.29 ; Anxiety F41.9 and Vagina, candidiasis B37.3 [facility] [address] [address] Nov, Anxiety F41.9 [facility] [id number] [place] [address] Nov, Acute nasopharyngitis J00 and BMI 50.0-59.9, adult Z68.43 [facility] [id number] [place] [address] Nov, [facility] [address] [address] Oct, Anxiety F41.9 [facility] [id number] [place] [phone] Oct, [facility] [address] [address] Sep, Anxiety F41.9 [facility] [id number] [place] [address] Sep, [facility] [address] [address] Sep, Anxiety F41.9 [facility] [id number] [place] [address] Aug, Primary insomnia F51.01 [facility] [id number] [place] [address] Aug, [facility] [id number] [place] [address] Aug, Anxiety F41.9 [facility] [id number] [place] [address] Jul, Primary insomnia F51.01 [facility] [id number] [place] [address] Jul, [place] [id number] [place] [address] Jul, Strep throat J02.0 [facility] [id number] [place] [address] Jul, Anxiety F41.9 [facility] [id number] [place] [address] Jun, Primary insomnia F51.01 ; Mood disorder F39 and Polyneuropathy G62.9 [facility] [id number] [place] [address] Jun, Anxiety F41.9 and Other chronic pain G89.29 [facility] [id number] [place] [address] May, Chronic obstructive pulmonary disease, unspecified COPD type J44.9 [facility] [id number] [place] [address] May, Anxiety F41.9 and Other chronic pain G89.29 [facility] [id number] [place] [address] Apr, Anxiety F41.9 and Other chronic pain G89.29 [facility] [address] [address] March, Morbid obesity due to excess calories E66.01 [facility] [id number] [place] [address] Feb, Morbid obesity due to excess calories E66.01 and SOB (shortness of breath) R06.02 [facility] [id number] [place] [address] Feb, [facility] [id number] [place] [address] Jan, [facility] [id number] [place] [address] Jan, [facility] [id number] [place] [address] Jan, Morbid obesity due to excess calories E66.01 [facility] [id number] [place] [address] Jan, [facility] [id number] [place] [address] Dec, [facility] [id number] [place] [address] Dec, [facility] [id number] [place] [address] Nov, [facility] [id number] [place] [phone] Nov, [facility] [id number] [place] [address] Oct, [facility] [id number] [place] [address] Oct, Sore throat J02.9 and Strep throat J02.0 [facility] [id number] [place] [address] Oct, [facility] [address] [address] Oct, [facility] [id number] [place] [address] Oct, [facility] [address] [address] Sep, [facility] [id number] [place] [address] Sep, [facility] [id number] [place] [address] Aug, [facility] [id number] [place] [address] Aug, Morbid obesity, unspecified obesity type E66.01 ; Pain in right leg M79.604 ; Pain of left leg M79.605 ; Other chronic pain G89.29 and Low back pain M54.5 [facility] [address] [address] Aug, [facility] [id number] [place] [address] Aug, [facility] [id number] [address] Jul, [facility] [address] [address] Jul, [facility] [address] [address] Jun, [facility] [id number] [place] [address] Jun, Anxiety F41.9 ; Chronic obstructive pulmonary disease, unspecified COPD type J44.9 ; Low back pain M54.5 and Other chronic pain G89.29 [facility] [id number] [place] [address] Jun, [facility] [id number] [place] [address] Jun, [facility] [id number] [place] [address] May, Other chronic pain G89.29 ; Pain in left knee M25.562 and Anxiety F41.9 [place] [address] [address] May, [facility] [id number] [place] [address] Apr, [place] [id number] [place] [address] March, MARIELENA (obstructive sleep apnea) G47.33 [place] [id number] [place] [address] Feb, [place] [id number] [place] [address] Feb, MARIELENA (obstructive sleep apnea) G47.33 and Acute upper respiratory infection, unspecified J06.9 [place] [id number] [place] [address] Feb, [place] [id number] [place] [address] Jan, Pain in right leg M79.604 ; Pain of left leg M79.605 and Obesity E66.9 [facility] [id number] [place] [address] Jan, [place] [id number] [place] [address] Jan, [place] [id number] [place] [address] Jan, COPD exacerbation J44.1 ; 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 ; Resistant hypertension I10 ; Nonischemic cardiomyopathy I42.9 and Anxiety about health F41.8 [facility] [address] [facility] [id number] [address] Dec, [facility] [address] [facility] [id number] [place] [address] Dec, Hypertension, benign I10 ; Tachycardia R00.0 ; Anxiety F41.9 and Pain in unspecified knee M25.569 IMMUNIZATIONS No Known Immunizations SOCIAL HISTORY Never Assessed REASON FOR VISIT Controlled Med Refill PLAN OF CARE VITAL SIGNS MEDICATIONS Unknown Medications RESULTS No Results PROCEDURES No Known procedures INSTRUCTIONS MEDICATIONS ADMINISTERED No Known Medications MEDICAL (GENERAL) HISTORY Type Description Date Medical History Hx of pneumonia Medical History HTN Medical History chronic pain in knees and back Medical History anxiety Surgical History x2 Surgical History cholecystectomy Surgical History tubal ligation Hospitalization History [facility] Pneumonia 01/12/16
--- OUTSIDE RECORDS SUMMARY | 2019-06-16 13:09 | XMS REPORT ---
Author Author ARA ISRAEL Organization [facility] Address [address] [place] [address] Care Team Providers Care Right Of Way Buyer Name Role Phone ARA ISRAEL Unavailable PROBLEMS Type Condition ICD9-CM Code DKB37-ND Code Onset Dates Condition Status SNOMED Code Problem Morbid obesity, unspecified obesity type E66.01 Active 313814482 Problem Morbid obesity due to excess calories E66.01 Active 205506483 Problem Other chronic pain G89.29 Active 32306515 Problem Hypertension, benign I10 Active 11567172 Problem Polyneuropathy G62.9 Active 68936918 Problem Chronic obstructive pulmonary disease, unspecified COPD type J44.9 Active 37383461 Problem Anxiety F41.9 Active 99376911 Problem Primary insomnia F51.01 Active 8118713 Problem Mood disorder F39 Active 73276514 ALLERGIES No Information ENCOUNTERS Encounter Location Date Diagnosis [place] [id number] [place] [address] 14 Sep, 2018 [place] [id number] [place] [address] 14 Sep, 2018 Polyneuropathy G62.9 ; Anxiety F41.9 ; Hypertension, benign I10 and Other chronic pain G89.29 [place] [address] [place] [address] Sep, Morbid obesity, unspecified obesity type E66.01 ; Anxiety F41.9 and Other chronic pain G89.29 [place] [id number] [place] [address] 24 Aug, 2018 [place] [id number] [place] [address] 17 Aug, 2018 Morbid obesity, unspecified obesity type E66.01 and Other chronic pain G89.29 [place] [id number] [place] [address] Aug, [facility] [id number] [place] [address] Jul, Anxiety F41.9 [facility] [id number] [place] [address] Jun, Anxiety F41.9 [facility] [address] [address] Jun, Polyneuropathy G62.9 [facility] [id number] [place] [address] May, Anxiety F41.9 [facility] [id number] [place] [address] May, Polyneuropathy G62.9 ; Anxiety F41.9 and Hypertension, benign I10 [facility] [id number] [place] [address] Apr, [facility] [id number] [place] [address] Apr, Anxiety F41.9 [facility] [id number] [place] [address] March, [facility] [id number] [place] [address] March, Anxiety F41.9 [facility] [id number] [place] [address] March, Anxiety F41.9 [facility] [id number] [place] [address] Feb, Chronic obstructive pulmonary disease, unspecified COPD type J44.9 [facility] [id number] [place] [address] Feb, [facility] [id number] [place] [address] Feb, [facility] [id number] [place] [address] Feb, Anxiety F41.9 [facility] [address] [address] Jan, Anxiety F41.9 [facility] [address] [address] Dec, Anxiety F41.9 [facility] [address] [address] Dec, [facility] [address] [address] Nov, BMI 50.0-59.9, adult Z68.43 ; Other chronic pain G89.29 ; Anxiety F41.9 and Vagina, candidiasis B37.3 [facility] [address] [address] Nov, Anxiety F41.9 [facility] [id number] [place] [address] Nov, Acute nasopharyngitis J00 and BMI 50.0-59.9, adult Z68.43 [facility] [id number] [place] [address] Nov, [facility] [address] [address] Oct, Anxiety F41.9 [facility] [id number] [place] [address] Oct, [facility] [address] [address] Sep, Anxiety F41.9 [facility] [id number] [place] [address] Sep, [facility] [address] [address] Sep, Anxiety F41.9 [facility] [id number] [place] [address] Aug, Primary insomnia F51.01 [facility] [id number] [place] [address] Aug, [facility] [id number] [place] [address] Aug, Anxiety F41.9 [facility] [id number] [place] [address] Jul, Primary insomnia F51.01 [facility] [id number] [place] [address] Jul, [place] [id number] [place] [address] Jul, Strep throat J02.0 [facility] [id number] [place] [address] Jul, Anxiety F41.9 [facility] [id number] [place] [address] Jun, Primary insomnia F51.01 ; Mood disorder F39 and Polyneuropathy G62.9 [facility] [id number] [place] [address] Jun, Anxiety F41.9 and Other chronic pain G89.29 [facility] [id number] [place] [address] May, Chronic obstructive pulmonary disease, unspecified COPD type J44.9 [facility] [id number] [place] [address] May, Anxiety F41.9 and Other chronic pain G89.29 [facility] [id number] [place] [address] Apr, Anxiety F41.9 and Other chronic pain G89.29 [facility] [address] [address] March, Morbid obesity due to excess calories E66.01 [facility] [address] [place] [address] Feb, Morbid obesity due to excess calories E66.01 and SOB (shortness of breath) R06.02 [facility] [id number] [place] [address] Feb, [facility] [id number] [place] [address] Jan, [facility] [id number] [place] [address] Jan, [facility] [id number] [place] [address] Jan, Morbid obesity due to excess calories E66.01 [facility] [id number] [place] [address] Jan, [facility] [id number] [place] [address] Dec, [facility] [id number] [place] [address] Dec, [facility] [address] [place] [address] Nov, [facility] [address] [place] [address] Nov, [facility] [id number] [place] [address] Oct, [facility] [address] [place] [address] Oct, Sore throat J02.9 and Strep throat J02.0 [facility] [address] [place] [address] Oct, [facility] [address] [address] Oct, [facility] [id number] [place] [address] Oct, [facility] [address] [address] Sep, [facility] [id number] [place] [address] Sep, [facility] [address] [place] [address] Aug, [facility] [address] [place] [address] Aug, Morbid obesity, unspecified obesity type E66.01 ; Pain in right leg M79.604 ; Pain of left leg M79.605 ; Other chronic pain G89.29 and Low back pain M54.5 [facility] [address] [address] Aug, [facility] [id number] [place] [address] Aug, [facility] [id number] [address] Jul, [facility] [address] [address] Jul, [facility] [address] [address] Jun, [facility] [id number] [place] [address] Jun, Anxiety F41.9 ; Chronic obstructive pulmonary disease, unspecified COPD type J44.9 ; Low back pain M54.5 and Other chronic pain G89.29 [facility] [address] [place] [address] Jun, [facility] [id number] [place] [address] Jun, [facility] [id number] [place] [address] May, Other chronic pain G89.29 ; Pain in left knee M25.562 and Anxiety F41.9 [place] [address] [address] May, [facility] [id number] [place] [address] Apr, [place] [id number] [place] [address] March, MARIELENA (obstructive sleep apnea) G47.33 [place] [id number] [place] [address] Feb, [place] [id number] [place] [address] Feb, MARIELENA (obstructive sleep apnea) G47.33 and Acute upper respiratory infection, unspecified J06.9 [place] [id number] [place] [address] Feb, [place] [id number] [place] [address] Jan, Pain in right leg M79.604 ; Pain of left leg M79.605 and Obesity E66.9 [facility] [id number] [place] [address] Jan, [place] [id number] [place] [address] Jan, [place] [id number] [place] [address] Jan, COPD exacerbation J44.1 ; 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 ; Resistant hypertension I10 ; Nonischemic cardiomyopathy I42.9 and Anxiety about health F41.8 [facility] [address] [facility] [id number] [place] [address] Dec, [facility] [address] [facility] [id number] [place] [address] Dec, Hypertension, benign I10 ; Tachycardia R00.0 ; Anxiety F41.9 and Pain in unspecified knee M25.569 IMMUNIZATIONS No Known Immunizations SOCIAL HISTORY Never Assessed REASON FOR VISIT Controlled Med Refill - PDM Due PLAN OF CARE VITAL SIGNS MEDICATIONS Medication Instructions Dosage Frequency Start Date End Date Duration Status Clonazepam 0.5 MG Orally Twice a day 1 tablet 12h May, 28 days Active Brooker 7.5-325 MG Orally every 6 hrs 1 tablet as needed 6h Sep, 28 days Active RESULTS No Results PROCEDURES [...]
--- OUTSIDE RECORDS SUMMARY | 2019-06-16 13:10 | XMS REPORT ---
Author Author ARA ISRAEL Organization [facility] Address [address] [place] [address] Care Team Providers Care Orientation & Mobility Specialist Name Role Phone ARA ISRAEL Unavailable PROBLEMS Type Condition ICD9-CM Code CBW99-PH Code Onset Dates Condition Status SNOMED Code Problem Morbid obesity, unspecified obesity type E66.01 Active 519196431 Problem Morbid obesity due to excess calories E66.01 Active 397644186 Problem Other chronic pain G89.29 Active 88449230 Problem Hypertension, benign I10 Active 90726047 Problem Polyneuropathy G62.9 Active 16365340 Problem Chronic obstructive pulmonary disease, unspecified COPD type J44.9 Active 67624608 Problem Anxiety F41.9 Active 81655580 Problem Primary insomnia F51.01 Active 5792870 Problem Mood disorder F39 Active 81166518 ALLERGIES No Information ENCOUNTERS Encounter Location Date Diagnosis [place] [id number] [place] [address] Aug, [place] [id number] [place] [address] Jul, Anxiety F41.9 [place] [id number] [place] [address] Jun, Anxiety F41.9 [facility] [id number] [place] [address] Jun, Polyneuropathy G62.9 [facility] [id number] [place] [address] May, Anxiety F41.9 [place] [id number] [place] [address] May, Polyneuropathy G62.9 ; Anxiety F41.9 and Hypertension, benign I10 [facility] [id number] [place] [address] Apr, [facility] [id number] [place] [address] Apr, Anxiety F41.9 [facility] [id number] [place] [address] March, [facility] [address] [address] March, Anxiety F41.9 [facility] [id number] [place] [address] March, Anxiety F41.9 [facility] [id number] [place] [address] Feb, Chronic obstructive pulmonary disease, unspecified COPD type J44.9 [facility] [id number] [place] [address] Feb, [facility] [id number] [place] [address] Feb, [facility] [id number] [place] [address] Feb, Anxiety F41.9 [facility] [id number] [place] [address] Jan, Anxiety F41.9 [facility] [id number] [place] [address] Dec, Anxiety F41.9 [facility] [id number] [place] [address] Dec, [facility] [id number] [place] [address] Nov, BMI 50.0-59.9, adult Z68.43 ; Other chronic pain G89.29 ; Anxiety F41.9 and Vagina, candidiasis B37.3 [facility] [id number] [place] [address] Nov, Anxiety F41.9 [facility] [id number] [place] [address] Nov, Acute nasopharyngitis J00 and BMI 50.0-59.9, adult Z68.43 [facility] [id number] [place] [address] Nov, [facility] [address] [address] Oct, Anxiety F41.9 [facility] [address] [address] Oct, [facility] [address] [address] Sep, Anxiety F41.9 [facility] [address] [address] Sep, [facility] [address] [address] Sep, Anxiety F41.9 [facility] [address] [address] Aug, Primary insomnia F51.01 [facility] [id number] [place] [address] Aug, [facility] [id number] [place] [address] Aug, Anxiety F41.9 [facility] [id number] [place] [address] Jul, Primary insomnia F51.01 [facility] [id number] [place] [address] Jul, [facility] [id number] [place] [address] 08 Jul, 2017 Strep throat J02.0 [place] [id number] [place] [address] Jul, Anxiety F41.9 [place] [id number] [place] [address] Jun, Primary insomnia F51.01 ; Mood disorder F39 and Polyneuropathy G62.9 [place] [address] [address] Jun, Anxiety F41.9 and Other chronic pain G89.29 [place] [id number] [place] [address] May, Chronic obstructive pulmonary disease, unspecified COPD type J44.9 [place] [id number] [place] [address] May, Anxiety F41.9 and Other chronic pain G89.29 [place] [id number] [place] [address] Apr, Anxiety F41.9 and Other chronic pain G89.29 [place] [id number] [place] [address] March, Morbid obesity due to excess calories E66.01 [place] [id number] [place] [address] Feb, Morbid obesity due to excess calories E66.01 and SOB (shortness of breath) R06.02 [place] [id number] [place] [address] Feb, [place] [id number] [place] [address] Jan, [place] [id number] [place] [address] Jan, [place] [id number] [place] [address] Jan, Morbid obesity due to excess calories E66.01 [facility] [address] [address] Jan, [facility] [address] [address] Dec, [facility] [address] [address] Dec, [facility] [id number] [place] [address] Nov, [facility] [address] [place] [address] Nov, [facility] [address] [place] [address] Oct, [facility] [address] [address] Oct, Sore throat J02.9 and Strep throat J02.0 [facility] [address] [address] Oct, [facility] [id number] [place] [address] Oct, [facility] [address] [address] Oct, [facility] [address] [address] Sep, [facility] [address] [address] Sep, [facility] [address] [place] [address] Aug, [facility] [address] [address] Aug, Morbid obesity, unspecified obesity type E66.01 ; Pain in right leg M79.604 ; Pain of left leg M79.605 ; Other chronic pain G89.29 and Low back pain M54.5 [facility] [address] [place] [address] Aug, [facility] [id number] [place] [address] Aug, [facility] [id number] [place] [address] Jul, [facility] [id number] [place] [address] Jul, [facility] [id number] [place] [phone] Jun, [facility] [id number] [place] [phone] Jun, Anxiety F41.9 ; Chronic obstructive pulmonary disease, unspecified COPD type J44.9 ; Low back pain M54.5 and Other chronic pain G89.29 [facility] [id number] [place] [phone] Jun, [facility] [id number] [place] [phone] Jun, [facility] [id number] [place] [phone] May, Other chronic pain G89.29 ; Pain in left knee M25.562 and Anxiety F41.9 [facility] [id number] [place] [phone] May, [facility] [id number] [place] [phone] Apr, [facility] [id number] [place] [phone] March, MARIELENA (obstructive sleep apnea) G47.33 [facility] [id number] [place] [phone] Feb, [id number] [place] [phone] Feb, MARIELENA (obstructive sleep apnea) G47.33 and Acute upper respiratory infection, unspecified J06.9 [place] [id number] [place] [phone] Feb, [address] [phone] Jan, Pain in right leg M79.604 ; Pain of left leg M79.605 and Obesity E66.[address] [phone] Jan, [place] [id number] [place] [phone] Jan, [address] [phone] Jan, COPD exacerbation J44.1 ; 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 ; Resistant hypertension I10 ; Nonischemic cardiomyopathy I42.9 and Anxiety about health F41.8 [id number] [place] [phone] Dec, [id number] [place] [phone] Dec, Hypertension, benign I10 ; Tachycardia R00.0 ; Anxiety F41.9 and Pain in unspecified knee M25.569 IMMUNIZATIONS No Known Immunizations SOCIAL HISTORY Never Assessed REASON FOR VISIT Controlled Med Refill PLAN OF CARE VITAL SIGNS MEDICATIONS Medication Instructions Dosage Frequency Start Date End Date Duration Status Concordia 7.5-325 MG Orally every 6 hrs 1 tablet as needed 6h Jun, 28 days Active Clonazepam 0.5 MG Orally Twice a day 1 tablet 12h May, 28 days Active RESULTS No Results PROCEDURES [...]
--- OUTSIDE RECORDS SUMMARY | 2019-06-16 13:10 | XMS REPORT ---
Author Author ARA ISRAEL Organization [facility] Address [address] [place] [address] Care Team Providers Care X Ray Control Equipment Repairer Name Role Phone ARA ISRAEL Unavailable PROBLEMS Type Condition ICD9-CM Code CBG28-RX Code Onset Dates Condition Status SNOMED Code Problem Morbid obesity, unspecified obesity type E66.01 Active 577412032 Problem Morbid obesity due to excess calories E66.01 Active 302575829 Problem Other chronic pain G89.29 Active 96023008 Problem Hypertension, benign I10 Active 51310466 Problem Polyneuropathy G62.9 Active 38166770 Problem Chronic obstructive pulmonary disease, unspecified COPD type J44.9 Active 26677089 Problem Anxiety F41.9 Active 23611334 Problem Primary insomnia F51.01 Active 5878456 Problem Mood disorder F39 Active 39574008 ALLERGIES No Information ENCOUNTERS Encounter Location Date Diagnosis [facility] [id number] [place] [address] Aug, [place] [id number] [place] [address] Aug, Morbid obesity, unspecified obesity type E66.01 and Other chronic pain G89.29 [facility] [address] [place] [address] Aug, [facility] [id number] [place] [address] Jul, Anxiety F41.9 [facility] [id number] [place] [address] Jun, Anxiety F41.9 [facility] [id number] [place] [address] Jun, Polyneuropathy G62.9 [facility] [id number] [place] [address] May, Anxiety F41.9 [facility] [address] [address] May, Polyneuropathy G62.9 ; Anxiety F41.9 and Hypertension, benign I10 [facility] [id number] [place] [address] Apr, [facility] [address] [address] Apr, Anxiety F41.9 [facility] [address] [address] March, [facility] [address] [address] March, Anxiety F41.9 [facility] [address] [address] March, Anxiety F41.9 [facility] [id number] [place] [address] Feb, Chronic obstructive pulmonary disease, unspecified COPD type J44.9 [facility] [id number] [place] [address] Feb, [facility] [id number] [place] [address] Feb, [facility] [id number] [place] [address] Feb, Anxiety F41.9 [facility] [id number] [place] [address] Jan, Anxiety F41.9 [facility] [id number] [place] [address] Dec, Anxiety F41.9 [facility] [id number] [place] [address] Dec, [facility] [id number] [place] [address] Nov, BMI 50.0-59.9, adult Z68.43 ; Other chronic pain G89.29 ; Anxiety F41.9 and Vagina, candidiasis B37.3 [facility] [address] [address] Nov, Anxiety F41.9 [facility] [address] [address] Nov, Acute nasopharyngitis J00 and BMI 50.0-59.9, adult Z68.43 [facility] [address] [address] Nov, [facility] [address] [address] Oct, Anxiety F41.9 [facility] [address] [address] Oct, [facility] [address] [address] Sep, Anxiety F41.9 [facility] [id number] [place] [address] Sep, [facility] [address] [address] Sep, Anxiety F41.9 [facility] [address] [address] Aug, Primary insomnia F51.01 [facility] [address] [address] Aug, [facility] [address] [address] Aug, Anxiety F41.9 [facility] [address] [address] Jul, Primary insomnia F51.01 [place] [id number] [place] [address] 13 Jul, 2017 [place] [address] [address] 08 Jul, 2017 Strep throat J02.0 [place] [address] [address] Jul, Anxiety F41.9 [place] [address] [address] Jun, Primary insomnia F51.01 ; Mood disorder F39 and Polyneuropathy G62.9 [place] [address] [address] Jun, Anxiety F41.9 and Other chronic pain G89.29 [place] [address] [address] May, Chronic obstructive pulmonary disease, unspecified COPD type J44.9 [place] [address] [address] May, Anxiety F41.9 and Other chronic pain G89.29 [place] [address] [address] Apr, Anxiety F41.9 and Other chronic pain G89.29 [place] [address] [address] March, Morbid obesity due to excess calories E66.01 [place] [address] [address] Feb, Morbid obesity due to excess calories E66.01 and SOB (shortness of breath) R06.02 [place] [id number] [place] [address] Feb, [place] [address] [address] Jan, [facility] [address] [facility] [id number] [address] Jan, [facility] [id number] [address] Jan, Morbid obesity due to excess calories E66.01 [facility] [id number] [address] Jan, [facility] [address] [facility] [id number] [address] Dec, [facility] [address] [place] [address] Dec, [facility] [address] [address] Nov, [facility] [address] [address] Nov, [facility] [id number] [address] Oct, [facility] [address] [address] Oct, Sore throat J02.9 and Strep throat J02.0 [facility] [id number] [address] Oct, [facility] [id number] [address] Oct, [facility] [id number] [address] Oct, [facility] [id number] [address] Sep, [facility] [id number] [address] Sep, [facility] [address] [id number] [address] Aug, [facility] [address] [place] [address] Aug, Morbid obesity, unspecified obesity type E66.01 ; Pain in right leg M79.604 ; Pain of left leg M79.605 ; Other chronic pain G89.29 and Low back pain M54.5 [facility] [id number] [place] [address] Aug, [facility] [id number] [place] [address] Aug, [facility] [id number] [place] [address] Jul, [facility] [id number] [place] [address] Jul, [facility] [id number] [place] [address] Jun, [facility] [address] [place] [address] Jun, Anxiety F41.9 ; Chronic obstructive pulmonary disease, unspecified COPD type J44.9 ; Low back pain M54.5 and Other chronic pain G89.29 [facility] [address] [address] Jun, [facility] [address] [place] [address] Jun, [facility] [address] [address] May, Other chronic pain G89.29 ; Pain in left knee M25.562 and Anxiety F41.9 [facility] [address] [address] May, [facility] [id number] [place] [address] Apr, [place] [id number] [place] [address] March, MARIELENA (obstructive sleep apnea) G47.33 [place] [id number] [place] [address] Feb, [place] [address] [address] Feb, MARIELENA (obstructive sleep apnea) G47.33 and Acute upper respiratory infection, unspecified J06.9 [place] [id number] [place] [address] Feb, [place] [address] [address] Jan, Pain in right leg M79.604 ; Pain of left leg M79.605 and Obesity E66.[address] [address] Jan, [place] [id number] [place] [address] Jan, [place] [id number] [place] [address] Jan, COPD exacerbation J44.1 ; 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
--- OUTSIDE RECORDS SUMMARY | 2019-06-16 13:10 | XMS REPORT ---
Author Author ARA ISRAEL Organization [facility] Address [address] [place] [address] Care Team Providers Care Patent Lawyer Name Role Phone ARA ISRAEL Unavailable PROBLEMS Type Condition ICD9-CM Code OLK91-VT Code Onset Dates Condition Status SNOMED Code Problem Morbid obesity, unspecified obesity type E66.01 Active 367442169 Problem Morbid obesity due to excess calories E66.01 Active 349862782 Problem Other chronic pain G89.29 Active 59508373 Problem Hypertension, benign I10 Active 91967267 Problem Polyneuropathy G62.9 Active 50925987 Problem Chronic obstructive pulmonary disease, unspecified COPD type J44.9 Active 19206600 Problem Anxiety F41.9 Active 33478273 Problem Primary insomnia F51.01 Active 8522499 Problem Mood disorder F39 Active 32912250 ALLERGIES No Information ENCOUNTERS Encounter Location Date Diagnosis [place] [id number] [place] [address] Aug, [place] [id number] [place] [address] Jul, Anxiety F41.9 [place] [id number] [place] [address] Jun, Anxiety F41.9 [facility] [id number] [place] [address] Jun, Polyneuropathy G62.9 [place] [id number] [place] [address] May, Anxiety F41.9 [place] [id number] [place] [address] May, Polyneuropathy G62.9 ; Anxiety F41.9 and Hypertension, benign I10 [facility] [id number] [place] [address] Apr, [facility] [id number] [place] [address] Apr, Anxiety F41.9 [facility] [id number] [place] [address] March, [facility] [address] [address] March, Anxiety F41.9 [facility] [id number] [place] [address] March, Anxiety F41.9 [facility] [id number] [place] [address] Feb, Chronic obstructive pulmonary disease, unspecified COPD type J44.9 [facility] [id number] [place] [address] Feb, [facility] [id number] [place] [address] Feb, [facility] [id number] [place] [address] Feb, Anxiety F41.9 [facility] [id number] [place] [address] Jan, Anxiety F41.9 [facility] [id number] [place] [address] Dec, Anxiety F41.9 [facility] [id number] [place] [address] Dec, [facility] [id number] [place] [address] Nov, BMI 50.0-59.9, adult Z68.43 ; Other chronic pain G89.29 ; Anxiety F41.9 and Vagina, candidiasis B37.3 [facility] [id number] [place] [address] Nov, Anxiety F41.9 [facility] [id number] [place] [address] Nov, Acute nasopharyngitis J00 and BMI 50.0-59.9, adult Z68.43 [facility] [id number] [place] [address] Nov, [facility] [address] [address] Oct, Anxiety F41.9 [facility] [address] [address] Oct, [facility] [address] [address] Sep, Anxiety F41.9 [facility] [address] [address] Sep, [facility] [address] [address] Sep, Anxiety F41.9 [facility] [address] [address] Aug, Primary insomnia F51.01 [facility] [id number] [place] [address] Aug, [facility] [id number] [place] [address] Aug, Anxiety F41.9 [facility] [id number] [place] [address] Jul, Primary insomnia F51.01 [facility] [id number] [place] [address] Jul, [facility] [id number] [place] [address] 08 Jul, 2017 Strep throat J02.0 [place] [id number] [place] [address] Jul, Anxiety F41.9 [place] [id number] [place] [address] Jun, Primary insomnia F51.01 ; Mood disorder F39 and Polyneuropathy G62.9 [place] [address] [address] Jun, Anxiety F41.9 and Other chronic pain G89.29 [place] [id number] [place] [address] May, Chronic obstructive pulmonary disease, unspecified COPD type J44.9 [place] [id number] [place] [address] May, Anxiety F41.9 and Other chronic pain G89.29 [place] [id number] [place] [address] Apr, Anxiety F41.9 and Other chronic pain G89.29 [place] [id number] [place] [address] March, Morbid obesity due to excess calories E66.01 [place] [id number] [place] [address] Feb, Morbid obesity due to excess calories E66.01 and SOB (shortness of breath) R06.02 [place] [id number] [place] [address] Feb, [place] [id number] [place] [address] Jan, [place] [id number] [place] [address] Jan, [place] [id number] [place] [address] Jan, Morbid obesity due to excess calories E66.01 [facility] [address], [place] [address] Jan, [facility] [address], [place] [address] Dec, [facility] [address], [place] [address] Dec, [facility] [id number] [place] [address] Nov, [facility] [address] [place] [address] Nov, [facility] [id number] [place] [address] Oct, [facility] [address] [address] Oct, Sore throat J02.9 and Strep throat J02.0 [facility] [address], [place] [address] Oct, [facility] [id number] [place] [address] Oct, [facility] [address], [place] [address] Oct, [facility] [address], [place] [address] Sep, [facility] [address], [place] [address] Sep, [facility] [address] [place] [address] Aug, [facility] [address] [address] Aug, Morbid obesity, unspecified obesity type E66.01 ; Pain in right leg M79.604 ; Pain of left leg M79.605 ; Other chronic pain G89.29 and Low back pain M54.5 [facility] [address] [place] [address] Aug, [facility] [id number] [place] [address] Aug, [facility] [id number] [place] [address] Jul, [facility] [id number] [place] [address] Jul, [facility] [id number] [place] [address] Jun, [facility] [id number] [place] [address] Jun, Anxiety F41.9 ; Chronic obstructive pulmonary disease, unspecified COPD type J44.9 ; Low back pain M54.5 and Other chronic pain G89.29 [facility] [id number] [place] [address] Jun, [facility] [id number] [place] [address] Jun, [facility] [address] [place] [address] May, Other chronic pain G89.29 ; Pain in left knee M25.562 and Anxiety F41.9 [facility] [id number] [place] [address] May, [facility] [id number] [place] [address] Apr, [facility] [id number] [place] [address] March, MARIELENA (obstructive sleep apnea) G47.33 [facility] [id number] [place] [address] Feb, [place] [id number] [place] [address] Feb, MARIELE[place] (obstructive sleep apnea) G47.33 and Acute upper respiratory infection, unspecified J06.9 [place] [id number] [place] [address] Feb, [address] [address] Jan, Pain in right leg M79.604 ; Pain of left leg M79.605 and Obesity E66.[address] [address] Jan, [place] [id number] [place] [address] Jan, [address] [address] Jan, COPD exacerbation J44.1 ; 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 ; Resistant hypertension I10 ; Nonischemic cardiomyopathy I42.9 and Anxiety about health F41.8 [place] [id number] [place] [address] Dec, [place] [id number] [place] [address] Dec, Hypertension, benign I10 ; Tachycardia R00.0 ; Anxiety F41.9 and Pain in unspecified knee M25.569 IMMUNIZATIONS No Known Immunizations SOCIAL HISTORY Never Assessed REASON FOR VISIT Controlled Med Refill PLAN OF CARE VITAL SIGNS MEDICATIONS Medication Instructions Dosage Frequency Start Date End Date Duration Status [place] 7.5-325 MG Orally every 6 hrs 1 tablet as needed 6h Jul, 28 days Active Clonazepam 0.5 MG Orally [...]
--- OUTSIDE RECORDS SUMMARY | 2019-06-16 13:11 | XMS REPORT ---
Author Author ARA ISRAEL Organization [facility] Address [address] [place] [address] Care Team Providers Care Cargo Broker Name Role Phone ARA ISRAEL Unavailable PROBLEMS Type Condition ICD9-CM Code [id number] Code Onset Dates Condition Status SNOMED Code Problem Morbid obesity, unspecified obesity type E66.01 Active 210767015 Problem Morbid obesity due to excess calories E66.01 Active 960736895 Problem Other chronic pain G89.29 Active 08154954 Problem Hypertension, benign I10 Active 70735345 Problem Polyneuropathy G62.9 Active 26451060 Problem Chronic obstructive pulmonary disease, unspecified COPD type J44.9 Active 62023766 Problem Anxiety F41.9 Active 31996610 Problem Primary insomnia F51.01 Active 2842507 Problem Mood disorder F39 Active 62209379 ALLERGIES No Information ENCOUNTERS Encounter Location Date Diagnosis [place] [id number] [place] [address] Jul, [place] [id number] [place] [address] Jun, Anxiety F41.9 [facility] [id number] [place] [address] Jun, Polyneuropathy G62.9 [facility] [id number] [place] [address] May, Anxiety F41.9 [facility] [id number] [place] [address] May, Polyneuropathy G62.9 ; Anxiety F41.9 and Hypertension, benign I10 [facility] [id number] [place] [address] Apr, [facility] [address] [place] [address] Apr, Anxiety F41.9 [facility] [id number] [place] [address] March, [facility] [id number] [place] [address] March, Anxiety F41.9 [facility] [address] [address] March, Anxiety F41.9 [facility] [id number] [place] [address] Feb, Chronic obstructive pulmonary disease, unspecified COPD type J44.9 [facility] [id number] [place] [address] Feb, [facility] [id number] [place] [address] Feb, [facility] [id number] [place] [address] Feb, Anxiety F41.9 [facility] [address] [address] Jan, Anxiety F41.9 [facility] [id number] [place] [address] Dec, Anxiety F41.9 [facility] [id number] [place] [address] Dec, [facility] [id number] [place] [address] Nov, BMI 50.0-59.9, adult Z68.43 ; Other chronic pain G89.29 ; Anxiety F41.9 and Vagina, candidiasis B37.3 [facility] [id number] [place] [address] Nov, Anxiety F41.9 [facility] [id number] [address] Nov, Acute nasopharyngitis J00 and BMI 50.0-59.9, adult Z68.43 [facility] [id number] [place] [address] Nov, [facility] [id number] [place] [address] Oct, Anxiety F41.9 [facility] [address] [address] Oct, [facility] [id number] [place] [address] Sep, Anxiety F41.9 [facility] [id number] [place] [address] Sep, [facility] [id number] [place] [address] Sep, Anxiety F41.9 [facility] [id number] [place] [address] Aug, Primary insomnia F51.01 [facility] [id number] [place] [address] Aug, [facility] [id number] [place] [address] Aug, Anxiety F41.9 [facility] [id number] [place] [address] Jul, Primary insomnia F51.01 [facility] [id number] [place] [address] Jul, [facility] [id number] [place] [address] 08 Jul, 2017 Strep throat J02.0 [facility] [id number] [place] [address] 06 Jul, 2017 Anxiety F41.9 [facility] [address] [address] Jun, Primary insomnia F51.01 ; Mood disorder F39 and Polyneuropathy G62.9 [facility] [id number] [place] [address] Jun, Anxiety F41.9 and Other chronic pain G89.29 [place] [id number] [place] [address] May, Chronic obstructive pulmonary disease, unspecified COPD type J44.9 [place] [id number] [place] [address] May, Anxiety F41.9 and Other chronic pain G89.29 [place] [id number] [place] [address] Apr, Anxiety F41.9 and Other chronic pain G89.29 [place] [id number] [place] [address] March, Morbid obesity due to excess calories E66.01 [place] [id number] [place] [address] Feb, Morbid obesity due to excess calories E66.01 and SOB (shortness of breath) R06.02 [place] [id number] [place] [address] Feb, [place] [id number] [place] [address] Jan, [place] [id number] [place] [address] Jan, [place] [id number] [place] [address] Jan, Morbid obesity due to excess calories E66.01 [place] [id number] [place] [address] Jan, [facility] [address], [place] [address] Dec, [facility] [id number] [place] [address] Dec, [facility] [id number] [place] [address] Nov, [facility] [id number] [place] [address] Nov, [facility] [id number] [place] [address] Oct, [facility] [id number] [place] [address] Oct, Sore throat J02.9 and Strep throat J02.0 [facility] [id number] [place] [address] Oct, [facility] [id number] [place] [address] Oct, [facility] [id number] [place] [address] Oct, [facility] [address], [place] [address] Sep, [facility] [id number] [place] [address] Sep, [facility] [address], [place] [address] Aug, [facility] [address] [place] [address] Aug, Morbid obesity, unspecified obesity type E66.01 ; Pain in right leg M79.604 ; Pain of left leg M79.605 ; Other chronic pain G89.29 and Low back pain M54.5 [facility] [address] [place] [address] Aug, [facility] [address], [place] [address] Aug, [facility] [address], [place] [address] Jul, [facility] [address], [place] [address] Jul, [facility] [id number] [place] [address] Jun, [facility] [id number] [place] [address] Jun, Anxiety F41.9 ; Chronic obstructive pulmonary disease, unspecified COPD type J44.9 ; Low back pain M54.5 and Other chronic pain G89.29 [facility] [id number] [place] [address] Jun, [facility] [id number] [address] Jun, [facility] [id number] [place] [address] May, Other chronic pain G89.29 ; Pain in left knee M25.562 and Anxiety F41.9 [facility] [address], [place] [address] May, [facility] [address], [place] [address] Apr, [facility] [address], [place] [address] March, MARIELENA (obstructive sleep apnea) G47.33 [facility] [address], [place] [address] Feb, [facility] [address], [place] [address] Feb, MARIELENA (obstructive sleep apnea) G47.33 and Acute upper respiratory infection, unspecified J06.9 [place] [id number] [place] [address] Feb, [place] [id number] [place] [address] Jan, Pain in right leg M79.604 ; Pain of left leg M79.605 and Obesity E66.9 [place] [address] [address] Jan, [place] [id number] [place] [address] Jan, [place] [id number] [place] [address] Jan, COPD exacerbation J44.1 ; 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 ; Resistant hypertension I10 ; Nonischemic cardiomyopathy I42.9 and Anxiety about health F41.8 [place] [id number] [place] [address] Dec, [place] [id number] [place] [address] Dec, Hypertension, benign I10 ; Tachycardia R00.0 ; Anxiety F41.9 and Pain in unspecified knee M25.569 IMMUNIZATIONS No Known Immunizations SOCIAL HISTORY Never Assessed REASON FOR VISIT Controlled Med Refill PLAN OF CARE VITAL SIGNS MEDICATIONS Medication Instructions Dosage Frequency Start Date End Date Duration Status [place] 7.5-325 MG Orally every 6 hrs 1 tablet as needed 6h 25 May, 2018 28 days Active Clonazepam 0.5 MG Orally [...]
--- OUTSIDE RECORDS SUMMARY | 2019-06-16 13:11 | XMS REPORT ---
Author Author ARA ISRAEL Organization [facility] Address [address] [place] [address] Care Team Providers Care Textile Conservator Name Role Phone ARA ISRAEL Unavailable PROBLEMS Type Condition ICD9-CM Code WXQ26-HS Code Onset Dates Condition Status SNOMED Code Problem Morbid obesity, unspecified obesity type E66.01 Active 246160768 Problem Morbid obesity due to excess calories E66.01 Active 314469892 Problem Other chronic pain G89.29 Active 67106155 Problem Hypertension, benign I10 Active 92022941 Problem Polyneuropathy G62.9 Active 17082025 Problem Chronic obstructive pulmonary disease, unspecified COPD type J44.9 Active 90229234 Problem Anxiety F41.9 Active 61513685 Problem Primary insomnia F51.01 Active 1566092 Problem Mood disorder F39 Active 05026606 ALLERGIES No Information ENCOUNTERS Encounter Location Date Diagnosis [place] [id number] [place] [address] Jul, [place] [id number] [place] [address] Jun, Anxiety F41.9 [facility] [id number] [place] [address] Jun, Polyneuropathy G62.9 [facility] [id number] [place] [address] May, Anxiety F41.9 [facility] [id number] [place] [address] May, Polyneuropathy G62.9 ; Anxiety F41.9 and Hypertension, benign I10 [facility] [id number] [place] [address] Apr, [facility] [address] [place] [address] Apr, Anxiety F41.9 [facility] [id number] [place] [address] March, [facility] [id number] [place] [address] March, Anxiety F41.9 [facility] [address] [address] March, Anxiety F41.9 [facility] [id number] [place] [address] Feb, Chronic obstructive pulmonary disease, unspecified COPD type J44.9 [facility] [id number] [place] [address] Feb, [facility] [id number] [place] [address] Feb, [facility] [id number] [place] [address] Feb, Anxiety F41.9 [facility] [address] [address] Jan, Anxiety F41.9 [facility] [id number] [place] [address] Dec, Anxiety F41.9 [facility] [id number] [place] [address] Dec, [facility] [id number] [place] [address] Nov, BMI 50.0-59.9, adult Z68.43 ; Other chronic pain G89.29 ; Anxiety F41.9 and Vagina, candidiasis B37.3 [facility] [address] [place] [address] Nov, Anxiety F41.9 [facility] [id number] [address] Nov, Acute nasopharyngitis J00 and BMI 50.0-59.9, adult Z68.43 [facility] [id number] [place] [address] Nov, [facility] [id number] [place] [address] Oct, Anxiety F41.9 [facility] [address] [address] Oct, [facility] [id number] [place] [address] Sep, Anxiety F41.9 [facility] [id number] [place] [address] Sep, [facility] [id number] [place] [address] Sep, Anxiety F41.9 [facility] [id number] [place] [address] Aug, Primary insomnia F51.01 [facility] [id number] [place] [address] Aug, [facility] [id number] [place] [address] Aug, Anxiety F41.9 [facility] [id number] [place] [address] Jul, Primary insomnia F51.01 [facility] [id number] [place] [address] Jul, [facility] [id number] [place] [address] 08 Jul, 2017 Strep throat J02.0 [facility] [id number] [place] [address] 06 Jul, 2017 Anxiety F41.9 [facility] [address] [place] [address] Jun, Primary insomnia F51.01 ; Mood disorder F39 and Polyneuropathy G62.9 [facility] [id number] [place] [address] Jun, Anxiety F41.9 and Other chronic pain G89.29 [place] [id number] [place] [address] May, Chronic obstructive pulmonary disease, unspecified COPD type J44.9 [place] [id number] [place] [address] May, Anxiety F41.9 and Other chronic pain G89.29 [place] [id number] [place] [address] Apr, Anxiety F41.9 and Other chronic pain G89.29 [place] [id number] [place] [address] March, Morbid obesity due to excess calories E66.01 [place] [id number] [place] [address] Feb, Morbid obesity due to excess calories E66.01 and SOB (shortness of breath) R06.02 [place] [id number] [place] [address] Feb, [place] [id number] [place] [address] Jan, [place] [id number] [place] [address] Jan, [place] [id number] [place] [address] Jan, Morbid obesity due to excess calories E66.01 [place] [id number] [place] [address] Jan, [facility] [address], [place] [address] Dec, [facility] [id number] [place] [address] Dec, [facility] [id number] [place] [address] Nov, [facility] [id number] [place] [address] Nov, [facility] [id number] [place] [address] Oct, [facility] [id number] [place] [address] Oct, Sore throat J02.9 and Strep throat J02.0 [facility] [id number] [place] [address] Oct, [facility] [id number] [place] [address] Oct, [facility] [id number] [place] [address] Oct, [facility] [address], [place] [address] Sep, [facility] [id number] [place] [address] Sep, [facility] [address], [place] [address] Aug, [facility] [id number] [place] [address] Aug, Morbid obesity, unspecified obesity type E66.01 ; Pain in right leg M79.604 ; Pain of left leg M79.605 ; Other chronic pain G89.29 and Low back pain M54.5 [facility] [id number] [place] [address] Aug, [facility] [address], [place] [address] Aug, [facility] [address], [place] [address] Jul, [facility] [address], [place] [address] Jul, [facility] [id number] [place] [address] Jun, [facility] [id number] [place] [address] Jun, Anxiety F41.9 ; Chronic obstructive pulmonary disease, unspecified COPD type J44.9 ; Low back pain M54.5 and Other chronic pain G89.29 [facility] [id number] [place] [address] Jun, [facility] [id number], [place] [address] Jun, [facility] [id number] [place] [address] May, Other chronic pain G89.29 ; Pain in left knee M25.562 and Anxiety F41.9 [facility] [id number] [place] [address] May, [facility] [id number] [place] [address] Apr, [facility] [id number] [place] [address] March, MARIELENA (obstructive sleep apnea) G47.33 [facility] [id number] [place] [address] Feb, [facility] [id number] [place] [address] Feb, MARIELENA (obstructive sleep apnea) G47.33 and Acute upper respiratory infection, unspecified J06.9 [facility] [id number] [place] [id number] Feb, [place] [address] [address] Jan, Pain in right leg M79.604 ; Pain of left leg M79.605 and Obesity E66.9 [place] [address] [address] Jan, [place] [address] [address] Jan, [place] [address] [address] Jan, COPD exacerbation J44.1 ; 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
--- OUTSIDE RECORDS SUMMARY | 2019-06-16 13:11 | XMS REPORT ---
Author Author ARA ISRAEL Organization [facility] Address [address] [place] [address] Care Team Providers Care Welder Fitter Gas Name Role Phone ARA ISRAEL Unavailable PROBLEMS Type Condition ICD9-CM Code QFO41-PQ Code Onset Dates Condition Status SNOMED Code Problem Morbid obesity, unspecified obesity type E66.01 Active 995716241 Problem Morbid obesity due to excess calories E66.01 Active 438605895 Problem Other chronic pain G89.29 Active 62106820 Problem Hypertension, benign I10 Active 29275190 Problem Polyneuropathy G62.9 Active 13748056 Problem Chronic obstructive pulmonary disease, unspecified COPD type J44.9 Active 60880713 Problem Anxiety F41.9 Active 00120788 Problem Primary insomnia F51.01 Active 1721483 Problem Mood disorder F39 Active 34345381 ALLERGIES No Known Allergies ENCOUNTERS Encounter Location Date Diagnosis [place] [id number] [place] [address] Jul, [place] [id number] [place] [address] Jun, Anxiety F41.9 [facility] [id number] [place] [address] Jun, Polyneuropathy G62.9 [facility] [id number] [place] [address] May, Anxiety F41.9 [facility] [id number] [place] [address] May, Polyneuropathy G62.9 ; Anxiety F41.9 and Hypertension, benign I10 [facility] [id number] [place] [address] Apr, [facility] [address] [place] [address] Apr, Anxiety F41.9 [facility] [address] [address] March, [facility] [id number] [place] [address] March, Anxiety F41.9 [facility] [address] [address] March, Anxiety F41.9 [facility] [id number] [place] [address] Feb, Chronic obstructive pulmonary disease, unspecified COPD type J44.9 [facility] [id number] [place] [address] Feb, [facility] [id number] [place] [address] Feb, [facility] [id number] [place] [address] Feb, Anxiety F41.9 [facility] [address] [address] Jan, Anxiety F41.9 [facility] [id number] [place] [address] Dec, Anxiety F41.9 [facility] [id number] [place] [address] Dec, [facility] [id number] [place] [address] Nov, BMI 50.0-59.9, adult Z68.43 ; Other chronic pain G89.29 ; Anxiety F41.9 and Vagina, candidiasis B37.3 [facility] [id number] [place] [address] Nov, Anxiety F41.9 [facility] [address] [place] [address] Nov, Acute nasopharyngitis J00 and BMI 50.0-59.9, adult Z68.43 [facility] [id number] [place] [address] Nov, [facility] [id number] [place] [address] Oct, Anxiety F41.9 [facility] [address] [address] Oct, [facility] [address] [address] Sep, Anxiety F41.9 [facility] [id number] [place] [address] Sep, [facility] [address] [address] Sep, Anxiety F41.9 [facility] [id number] [place] [address] Aug, Primary insomnia F51.01 [facility] [id number] [place] [address] Aug, [facility] [id number] [place] [address] Aug, Anxiety F41.9 [facility] [id number] [place] [address] Jul, Primary insomnia F51.01 [facility] [id number] [place] [address] Jul, [facility] [id number] [place] [address] 08 Jul, 2017 Strep throat J02.0 [facility] [id number] [place] [address] Jul, Anxiety F41.9 [facility] [address] [place] [address] Jun, Primary insomnia F51.01 ; Mood disorder F39 and Polyneuropathy G62.9 [facility] [id number] [place] [address] Jun, Anxiety F41.9 and Other chronic pain G89.29 [place] [id number] [place] [address] May, Chronic obstructive pulmonary disease, unspecified COPD type J44.9 [place] [id number] [place] [address] May, Anxiety F41.9 and Other chronic pain G89.29 [place] [id number] [place] [address] Apr, Anxiety F41.9 and Other chronic pain G89.29 [place] [id number] [place] [address] March, Morbid obesity due to excess calories E66.01 [place] [id number] [place] [address] Feb, Morbid obesity due to excess calories E66.01 and SOB (shortness of breath) R06.02 [place] [id number] [place] [address] Feb, [place] [id number] [place] [address] Jan, [place] [id number] [place] [address] Jan, [place] [id number] [place] [address] Jan, Morbid obesity due to excess calories E66.01 [place] [id number] [place] [address] Jan, [facility] [address] [address] Dec, [facility] [id number] [place] [address] Dec, [facility] [address] [place] [address] Nov, [facility] [id number] [place] [address] Nov, [facility] [address] [place] [address] Oct, [facility] [id number] [place] [address] Oct, Sore throat J02.9 and Strep throat J02.0 [facility] [id number] [place] [address] Oct, [facility] [address] [place] [address] Oct, [facility] [id number] [place] [address] Oct, [facility] [address] [address] Sep, [facility] [address] [place] [address] Sep, [facility] [address] [address] Aug, [facility] [address] [place] [address] Aug, Morbid obesity, unspecified obesity type E66.01 ; Pain in right leg M79.604 ; Pain of left leg M79.605 ; Other chronic pain G89.29 and Low back pain M54.5 [facility] [address] [place] [address] Aug, [facility] [address] [address] Aug, [facility] [address] [place] [address] Jul, [facility] [address] [address] Jul, [facility] [id number] [place] [address] Jun, [facility] [address] [place] [address] Jun, Anxiety F41.9 ; Chronic obstructive pulmonary disease, unspecified COPD type J44.9 ; Low back pain M54.5 and Other chronic pain G89.29 [facility] [id number] [place] [address] Jun, [facility] [id number] [place] [address] Jun, [facility] [id number] [place] [address] May, Other chronic pain G89.29 ; Pain in left knee M25.562 and Anxiety F41.9 [facility] [address] [address] May, [facility] [address] [place] [address] Apr, [facility] [address] [address] March, MARIELENA (obstructive sleep apnea) G47.33 [facility] [address] [address] Feb, [facility] [address] [address] Feb, MARIELENA (obstructive sleep apnea) G47.33 and Acute upper respiratory infection, unspecified J06.9 [place] [id number] [place] [address] Feb, [place] [address] [address] Jan, Pain in right leg M79.604 ; Pain of left leg M79.605 and Obesity E66.[address] [address] Jan, [address] [address] Jan, [address] [address] Jan, COPD exacerbation J44.1 ; 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 ; Resistant hypertension I10 ; Nonischemic cardiomyopathy I42.9 and Anxiety about health F41.8 [place] [id number] [place] [address] Dec, [address] [address] Dec, Hypertension, benign I10 ; Tachycardia R00.0 ; Anxiety F41.9 and Pain in unspecified knee M25.569 IMMUNIZATIONS No Known Immunizations SOCIAL HISTORY Never Assessed REASON FOR VISIT COPD -Oswaldo SHELTON , PT would like to discuss some medications for cholesterol du e to her high blood pressure -Oswaldo SHELTON PLAN OF CARE VITAL SIGNS Height 66 in 2018-06-03 Weight 369 lbs 2018-06-03 Temperature 98.6 degrees Fahrenheit 2018-06-03 Heart Rate 107 bpm 2018-06-03 Respiratory Rate 24 2018-06-03 Oximetry on room air:97 % 2018-06-03 BMI 59.55 kg/m2 2018-06-03 Blood pressure systolic 132 mmHg 2018-06-03 Blood pressure diastolic 80 mmHg 2018-06-03 MEDICATIONS Medication Instructions Dosage Frequency Start Date End Date Duration Status Symbicort 160-4.5 MCG/ACT INHALE TWO PUFFS BY MOUTH TWICE DAILY 30 Active ProAir HFA 108 (90 Base) MCG/ACT Inhalation every 6 hrs 2 puffs as needed 6h 20 Feb, 2018 Active Amitriptyline HCl 25 MG TAKE ONE TABLET BY MOUTH ONCE DAILY (MAKE APPOINTMENT TO SEE MIGUEL ANGEL) 30 Active Spiriva HandiHaler 18 MCG INHALE CONTENTS OF ONE CAPSULE BY MOUTH ONCE DAILY (TWO INHALATIONS PER ONE CAPSULE) 30 30 Active Meloxicam 7.5 MG Orally 2 times a day 1 tablet 12h May, Aug, 30 day(s) Active Cetirizine HCl 10 MG TAKE ONE TABLET BY MOUTH ONCE DAILY NEEDED 30 Active Harrison 7.5-325 MG Orally every 6 hrs 1 tablet as needed 6h 27 Apr, 2018 28 days Active Metformin HCl 500 mg TAKE ONE TABLET BY MOUTH TWICE DAILY WITH MEALS 30 Active Toprol XL 50 mg Orally Once a day 1 tablet 24h 16 May, 2018 30 day(s) Active Oxygen 3 L by nasal cannula Active Hydrochlorothiazide 25 MG TAKE ONE TABLET BY MOUTH ONCE DAILY 90 Active Paroxetine HCl 20 MG Orally Once a day 1 tablet in the morning 24h 30 Not-Taking Clonazepam 0.5 MG Orally Twice a day 1 tablet 12h May, 28 days Active Lisinopril 20 MG TAKE TWO TABLETS BY MOUTH ONCE DAILY 90 Active RESULTS No Results PROCEDURES No Known procedures INSTRUCTIONS MEDICATIONS ADMINISTERED No Known Medications MEDICAL (GENERAL) HISTORY Type Description Date Medical History Hx of pneumonia Medical History HTN Medical History chronic pain in knees and back Medical History anxiety Surgical History x2 Surgical History cholecystectomy Surgical History tubal ligation Hospitalization History [facility] Pneumonia 01/12/16
--- OUTSIDE RECORDS SUMMARY | 2019-06-16 13:11 | XMS REPORT ---
Author Author ARA ISRAEL Organization [facility] Address [address] [place] [address] Care Team Providers Care Dude Wrangler Name Role Phone ARA ISRAEL Unavailable PROBLEMS Type Condition ICD9-CM Code NVN52-RA Code Onset Dates Condition Status SNOMED Code Problem Morbid obesity, unspecified obesity type E66.01 Active 800470383 Problem Morbid obesity due to excess calories E66.01 Active 655336755 Problem Other chronic pain G89.29 Active 60563330 Problem Hypertension, benign I10 Active 09530048 Problem Polyneuropathy G62.9 Active 56951286 Problem Chronic obstructive pulmonary disease, unspecified COPD type J44.9 Active 67337157 Problem Anxiety F41.9 Active 41972059 Problem Primary insomnia F51.01 Active 4323908 Problem Mood disorder F39 Active 12994801 ALLERGIES No Information ENCOUNTERS Encounter Location Date Diagnosis [place] [id number] [place] [address] Jul, [place] [id number] [place] [address] Jun, Anxiety F41.9 [facility] [id number] [place] [address] Jun, Polyneuropathy G62.9 [facility] [id number] [place] [address] May, Anxiety F41.9 [facility] [id number] [place] [address] May, Polyneuropathy G62.9 ; Anxiety F41.9 and Hypertension, benign I10 [facility] [id number] [place] [address] Apr, [facility] [address] [place] [address] Apr, Anxiety F41.9 [facility] [id number] [place] [address] March, [facility] [id number] [place] [address] March, Anxiety F41.9 [facility] [address] [address] March, Anxiety F41.9 [facility] [id number] [place] [address] Feb, Chronic obstructive pulmonary disease, unspecified COPD type J44.9 [facility] [id number] [place] [address] Feb, [facility] [id number] [place] [address] Feb, [facility] [id number] [place] [address] Feb, Anxiety F41.9 [facility] [address] [address] Jan, Anxiety F41.9 [facility] [id number] [place] [address] Dec, Anxiety F41.9 [facility] [id number] [place] [address] Dec, [facility] [id number] [place] [address] Nov, BMI 50.0-59.9, adult Z68.43 ; Other chronic pain G89.29 ; Anxiety F41.9 and Vagina, candidiasis B37.3 [facility] [address] [place] [address] Nov, Anxiety F41.9 [facility] [id number] [address] Nov, Acute nasopharyngitis J00 and BMI 50.0-59.9, adult Z68.43 [facility] [id number] [place] [address] Nov, [facility] [id number] [place] [address] Oct, Anxiety F41.9 [facility] [address] [address] Oct, [facility] [id number] [place] [address] Sep, Anxiety F41.9 [facility] [id number] [place] [address] Sep, [facility] [id number] [place] [address] Sep, Anxiety F41.9 [facility] [id number] [place] [address] Aug, Primary insomnia F51.01 [facility] [id number] [place] [address] Aug, [facility] [id number] [place] [address] Aug, Anxiety F41.9 [facility] [id number] [place] [address] Jul, Primary insomnia F51.01 [facility] [id number] [place] [address] Jul, [facility] [id number] [place] [address] 08 Jul, 2017 Strep throat J02.0 [facility] [id number] [place] [address] 06 Jul, 2017 Anxiety F41.9 [facility] [address], [place] [address] Jun, Primary insomnia F51.01 ; Mood disorder F39 and Polyneuropathy G62.9 [facility] [id number] [place] [address] Jun, Anxiety F41.9 and Other chronic pain G89.29 [place] [id number] [place] [address] May, Chronic obstructive pulmonary disease, unspecified COPD type J44.9 [place] [id number] [place] [address] May, Anxiety F41.9 and Other chronic pain G89.29 [place] [id number] [place] [address] Apr, Anxiety F41.9 and Other chronic pain G89.29 [place] [id number] [place] [address] March, Morbid obesity due to excess calories E66.01 [place] [id number] [place] [address] Feb, Morbid obesity due to excess calories E66.01 and SOB (shortness of breath) R06.02 [place] [id number] [place] [address] Feb, [place] [id number] [place] [address] Jan, [place] [id number] [place] [address] Jan, [place] [id number] [place] [address] Jan, Morbid obesity due to excess calories E66.01 [place] [id number] [place] [address] Jan, [facility] [address], [place] [address] Dec, [facility] [id number] [place] [address] Dec, [facility] [id number] [place] [address] Nov, [facility] [id number] [place] [address] Nov, [facility] [id number] [place] [address] Oct, [facility] [id number] [place] [address] Oct, Sore throat J02.9 and Strep throat J02.0 [facility] [id number] [place] [address] Oct, [facility] [id number] [place] [address] Oct, [facility] [id number] [place] [address] Oct, [facility] [address], [place] [address] Sep, [facility] [id number] [place] [address] Sep, [facility] [address], [place] [address] Aug, [facility] [address] [place] [address] Aug, Morbid obesity, unspecified obesity type E66.01 ; Pain in right leg M79.604 ; Pain of left leg M79.605 ; Other chronic pain G89.29 and Low back pain M54.5 [facility] [address] [place] [address] Aug, [facility] [address], [place] [address] Aug, [facility] [address], [place] [address] Jul, [facility] [address], [place] [address] Jul, [facility] [id number] [place] [address] Jun, [facility] [id number] [place] [address] Jun, Anxiety F41.9 ; Chronic obstructive pulmonary disease, unspecified COPD type J44.9 ; Low back pain M54.5 and Other chronic pain G89.29 [facility] [id number] [place] [phone] Jun, [facility] [id number] [address] Jun, [facility] [id number] [place] [phone] May, Other chronic pain G89.29 ; Pain in left knee M25.562 and Anxiety F41.9 [facility] [id number] [place] [address] May, [facility] [address] [place] [address] Apr, [facility] [address] [place] [address] March, MARIELENA (obstructive sleep apnea) G47.33 [facility] [address] [place] [address] Feb, [facility] [address] [place] [address] Feb, MARIELENA (obstructive sleep apnea) G47.33 and Acute upper respiratory infection, unspecified J06.9 [place] [id number] [place] [phone] Feb, [place] [address] [address] Jan, Pain in right leg M79.604 ; Pain of left leg M79.605 and Obesity E66.9 [place] [address] [address] Jan, [place] [address] [address] Jan, [place] [address] [address] Jan, COPD exacerbation J44.1 ; 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 ; Resistant hypertension I10 ; Nonischemic cardiomyopathy I42.9 and Anxiety about health F41.8 [place] [id number] [place] [phone] Dec, [address] [address] Dec, Hypertension, benign I10 ; Tachycardia R00.0 ; Anxiety F41.9 and Pain in unspecified knee M25.569 IMMUNIZATIONS No Known Immunizations SOCIAL HISTORY Never Assessed REASON FOR VISIT Medication PLAN OF CARE VITAL SIGNS MEDICATIONS Medication Instructions Dosage Frequency Start Date End Date Duration Status Toprol XL 50 mg Orally Once a day 1 tablet 24h May, 30 day(s) Active RESULTS No Results PROCEDURES No Known procedures INSTRUCTIONS MEDICATIONS ADMINISTERED No Known Medications MEDICAL (GENERAL) HISTORY Type Description Date Medical History Hx of pneumonia Medical History HTN Medical History chronic pain in knees and back Medical History anxiety Surgical History x2 Surgical History cholecystectomy Surgical History tubal ligation Hospitalization History [facility] Pneumonia 01/12/16
--- OUTSIDE RECORDS SUMMARY | 2019-06-16 13:12 | XMS REPORT ---
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 Name Role Phone ARA ISRAEL Unavailable PROBLEMS Type Condition ICD9-CM Code REV24-RI Code Onset Dates Condition Status SNOMED Code Problem Morbid obesity, unspecified obesity type E66.01 Active 359321037 Problem Morbid obesity due to excess calories E66.01 Active 381056423 Problem Other chronic pain G89.29 Active 87588426 Problem Hypertension, benign I10 Active 85408800 Problem Polyneuropathy G62.9 Active 84380400 Problem Chronic obstructive pulmonary disease, unspecified COPD type J44.9 Active 97067072 Problem Anxiety F41.9 Active 88719732 Problem Primary insomnia F51.01 Active 8478054 Problem Mood disorder F39 Active 97447302 ALLERGIES No Information ENCOUNTERS Encounter Location Date Diagnosis [place] [id number] [place] [address] Jun, [place] [id number] [place] [address] Jun, Polyneuropathy G62.9 [place] [id number] [place] [address] May, Anxiety F41.9 [place] [id number] [place] [address] May, Polyneuropathy G62.9 ; Anxiety F41.9 and Hypertension, benign I10 [facility] [id number] [place] [address] Apr, [place] [id number] [place] [address] Apr, Anxiety F41.9 [place] [address] [place] [address] March, [facility] [id number] [place] [address] March, Anxiety F41.9 [facility] [address] [address] March, Anxiety F41.9 [facility] [address] [address] Feb, Chronic obstructive pulmonary disease, unspecified COPD type J44.9 [facility] [address] [address] Feb, [facility] [address] [address] Feb, [facility] [address] [address] Feb, Anxiety F41.9 [facility] [id number] [place] [address] Jan, Anxiety F41.9 [facility] [address] [address] Dec, Anxiety F41.9 [facility] [id number] [place] [address] Dec, [facility] [id number] [place] [address] Nov, BMI 50.0-59.9, adult Z68.43 ; Other chronic pain G89.29 ; Anxiety F41.9 and Vagina, candidiasis B37.3 [facility] [address] [address] Nov, Anxiety F41.[address] [facility] [id number] [place] [address] Nov, Acute nasopharyngitis J00 and BMI 50.0-59.9, adult Z68.43 [facility] [id number] [place] [address] Nov, [facility] [id number] [place] [address] Oct, Anxiety F41.9 [facility] [id number] [place] [address] Oct, [facility] [id number] [place] [address] Sep, Anxiety F41.9 [facility] [id number] [place] [address] Sep, [facility] [id number] [place] [address] Sep, Anxiety F41.9 [facility] [address] [address] Aug, Primary insomnia F51.01 [facility] [id number] [place] [address] Aug, [facility] [id number] [place] [address] Aug, Anxiety F41.9 [facility] [id number] [place] [address] Jul, Primary insomnia F51.01 [facility] [id number] [place] [address] Jul, [facility] [id number] [place] [address] Jul, Strep throat J02.0 [facility] [id number] [place] [address] Jul, Anxiety F41.9 [facility] [id number] [place] [address] Jun, Primary insomnia F51.01 ; Mood disorder F39 and Polyneuropathy G62.9 [place] [id number] [place] [address] Jun, Anxiety F41.9 and Other chronic pain G89.29 [place] [id number] [place] [address] May, Chronic obstructive pulmonary disease, unspecified COPD type J44.9 [place] [address] [address] May, Anxiety F41.9 and Other chronic pain G89.29 [place] [address] [address] Apr, Anxiety F41.9 and Other chronic pain G89.29 [place] [id number] [place] [address] March, Morbid obesity due to excess calories E66.01 [place] [id number] [place] [address] Feb, Morbid obesity due to excess calories E66.01 and SOB (shortness of breath) R06.02 [place] [id number] [place] [address] Feb, [place] [id number] [place] [address] Jan, [place] [id number] [place] [address] Jan, [place] [id number] [place] [address] Jan, Morbid obesity due to excess calories E66.01 [place] [id number] [place] [address] Jan, [place] [id number] [place] [address] Dec, [place] [address] [place] [address] Dec, [facility] [id number] [place] [address] Nov, [facility] [id number] [address] Nov, [facility] [id number] [place] [address] Oct, [facility] [id number] [place] [address] Oct, Sore throat J02.9 and Strep throat J02.0 [facility] [id number] [place] [address] Oct, [facility] [id number] [place] [address] Oct, [facility] [id number] [place] [address] Oct, [facility] [id number] [place] [address] Sep, [facility] [id number] [place] [address] Sep, [facility] [id number] [place] [address] Aug, [facility] [id number] [place] [address] Aug, Morbid obesity, unspecified obesity type E66.01 ; Pain in right leg M79.604 ; Pain of left leg M79.605 ; Other chronic pain G89.29 and Low back pain M54.5 [facility] [address] [address] Aug, [facility] [id number] [place] [address] Aug, [facility] [id number] [place] [address] Jul, [facility] [id number] [place] [address] Jul, [facility] [id number] [place] [address] Jun, [facility] [address] [address] Jun, Anxiety F41.9 ; Chronic obstructive pulmonary disease, unspecified COPD type J44.9 ; Low back pain M54.5 and Other chronic pain G89.29 [facility] [id number] [place] [address] Jun, [facility] [id number] [place] [address] Jun, [facility] [id number] [place] [address] May, Other chronic pain G89.29 ; Pain in left knee M25.562 and Anxiety F41.9 [facility] [id number] [place] [address] May, [facility] [id number] [place] [address] Apr, [facility] [id number] [place] [address] March, MARIELENA (obstructive sleep apnea) G47.33 [facility] [id number] [place] [address] Feb, [facility] [id number] [place] [address] Feb, MARIELENA (obstructive sleep apnea) G47.33 and Acute upper respiratory infection, unspecified J06.9 [facility] [id number] [place] [address] Feb, [place] [address] [address] Jan, Pain in right leg M79.604 ; Pain of left leg M79.605 and Obesity E66.9 [place] [address] [address] Jan, [place] [id number] [place] [address] Jan, [place] [id number] [place] [address] Jan, COPD exacerbation J44.1 ; 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 ; Resistant hypertension I10 ; Nonischemic cardiomyopathy I42.9 and Anxiety about health F41.8 [place] [id number] [place] [address] Dec, [place] [id number] [place] [address] Dec, Hypertension, benign I10 ; Tachycardia R00.0 ; Anxiety F41.9 and Pain in unspecified knee M25.569 IMMUNIZATIONS No Known Immunizations SOCIAL HISTORY Never Assessed REASON FOR VISIT Controlled Med Refill 03/20/18 PLAN OF CARE VITAL SIGNS MEDICATIONS Medication Instructions Dosage Frequency Start Date End Date Duration Status Speed 7.5-325 MG Orally every 6 hrs 1 tablet as needed 6h March, 28 days Active Clonazepam 0.5 MG Orally [...]
--- OUTSIDE RECORDS SUMMARY | 2019-06-16 13:12 | XMS REPORT ---
Author Author ARA ISRAEL Organization [facility] Address [address] [place] [address] Care Team Providers Care Superintendent Measurement Name Role Phone ARA ISRAEL Unavailable PROBLEMS Type Condition ICD9-CM Code ISN67-TR Code Onset Dates Condition Status SNOMED Code Problem Morbid obesity, unspecified obesity type E66.01 Active 177849134 Problem Morbid obesity due to excess calories E66.01 Active 562164423 Problem Other chronic pain G89.29 Active 32536595 Problem Hypertension, benign I10 Active 50190752 Problem Polyneuropathy G62.9 Active 77384443 Problem Chronic obstructive pulmonary disease, unspecified COPD type J44.9 Active 53574228 Problem Anxiety F41.9 Active 85677332 Problem Primary insomnia F51.01 Active 9293597 Problem Mood disorder F39 Active 39170381 ALLERGIES No Information ENCOUNTERS Encounter Location Date Diagnosis [place] [id number] [place] [address] Jun, [place] [id number] [place] [address] Jun, Polyneuropathy G62.9 [place] [id number] [place] [address] May, Anxiety F41.9 [place] [id number] [place] [address] May, Polyneuropathy G62.9 ; Anxiety F41.9 and Hypertension, benign I10 [facility] [id number] [place] [address] Apr, [place] [id number] [place] [address] Apr, Anxiety F41.9 [place] [address] [place] [address] March, [facility] [id number] [place] [address] March, Anxiety F41.9 [facility] [address] [address] March, Anxiety F41.9 [facility] [address] [address] Feb, Chronic obstructive pulmonary disease, unspecified COPD type J44.9 [facility] [address] [address] Feb, [facility] [address] [address] Feb, [facility] [address] [address] Feb, Anxiety F41.9 [facility] [id number] [place] [address] Jan, Anxiety F41.9 [facility] [address] [address] Dec, Anxiety F41.9 [facility] [id number] [place] [address] Dec, [facility] [id number] [place] [address] Nov, BMI 50.0-59.9, adult Z68.43 ; Other chronic pain G89.29 ; Anxiety F41.9 and Vagina, candidiasis B37.3 [facility] [address] [address] Nov, Anxiety F41.9 [facility] [id number] [place] [address] Nov, Acute nasopharyngitis J00 and BMI 50.0-59.9, adult Z68.43 [facility] [address] [place] [address] Nov, [facility] [id number] [place] [address] Oct, Anxiety F41.9 [facility] [id number] [place] [address] Oct, [facility] [id number] [place] [address] Sep, Anxiety F41.9 [facility] [id number] [place] [address] Sep, [facility] [id number] [place] [address] Sep, Anxiety F41.9 [facility] [address] [address] Aug, Primary insomnia F51.01 [facility] [id number] [place] [address] Aug, [facility] [id number] [place] [address] Aug, Anxiety F41.9 [facility] [id number] [place] [address] Jul, Primary insomnia F51.01 [facility] [id number] [place] [address] Jul, [facility] [id number] [place] [address] Jul, Strep throat J02.0 [facility] [id number] [place] [address] Jul, Anxiety F41.9 [facility] [id number] [place] [address] Jun, Primary insomnia F51.01 ; Mood disorder F39 and Polyneuropathy G62.9 [place] [id number] [place] [address] Jun, Anxiety F41.9 and Other chronic pain G89.29 [place] [id number] [place] [address] May, Chronic obstructive pulmonary disease, unspecified COPD type J44.9 [place] [address] [address] May, Anxiety F41.9 and Other chronic pain G89.29 [place] [address] [address] Apr, Anxiety F41.9 and Other chronic pain G89.29 [place] [id number] [place] [address] March, Morbid obesity due to excess calories E66.01 [place] [id number] [place] [address] Feb, Morbid obesity due to excess calories E66.01 and SOB (shortness of breath) R06.02 [place] [id number] [place] [address] Feb, [place] [id number] [place] [address] Jan, [place] [id number] [place] [address] Jan, [place] [id number] [place] [address] Jan, Morbid obesity due to excess calories E66.01 [place] [id number] [place] [address] Jan, [place] [id number] [place] [address] Dec, [place] [address] [address] Dec, [facility] [id number] [place] [address] Nov, [facility] [id number] [address] Nov, [facility] [id number] [place] [address] Oct, [facility] [id number] [place] [address] Oct, Sore throat J02.9 and Strep throat J02.0 [facility] [id number] [place] [address] Oct, [facility] [id number] [place] [address] Oct, [facility] [id number] [place] [address] Oct, [facility] [id number] [place] [address] Sep, [facility] [id number] [place] [address] Sep, [facility] [id number] [place] [address] Aug, [facility] [id number] [place] [address] Aug, Morbid obesity, unspecified obesity type E66.01 ; Pain in right leg M79.604 ; Pain of left leg M79.605 ; Other chronic pain G89.29 and Low back pain M54.5 [facility] [address] [address] Aug, [facility] [id number] [place] [address] Aug, [facility] [id number] [place] [address] Jul, [facility] [id number] [place] [address] Jul, [facility] [id number] [place] [address] Jun, [facility] [address] [address] Jun, Anxiety F41.9 ; Chronic obstructive pulmonary disease, unspecified COPD type J44.9 ; Low back pain M54.5 and Other chronic pain G89.29 [facility] [id number] [place] [address] Jun, [facility] [id number] [place] [address] Jun, [facility] [id number] [place] [address] May, Other chronic pain G89.29 ; Pain in left knee M25.562 and Anxiety F41.9 [facility] [id number] [place] [address] May, [facility] [id number] [place] [address] Apr, [facility] [id number] [place] [address] March, MARIELENA (obstructive sleep apnea) G47.33 [facility] [id number] [place] [address] Feb, [facility] [id number] [place] [address] Feb, MARIELENA (obstructive sleep apnea) G47.33 and Acute upper respiratory infection, unspecified J06.9 [facility] [id number] [place] [address] Feb, [place] [address] [place] [address] Jan, Pain in right leg M79.604 ; Pain of left leg M79.605 and Obesity E66.9 [place] [address] [place] [address] Jan, [place] [id number] [place] [address] Jan, [place] [id number] [place] [address] Jan, COPD exacerbation J44.1 ; 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
--- OUTSIDE RECORDS SUMMARY | 2019-06-16 13:12 | XMS REPORT ---
Author Author ARA ISRAEL Organization [facility] Address [address] [place] [address] Care Team Providers Care Hole Filler Name Role Phone ARA ISRAEL Unavailable PROBLEMS Type Condition ICD9-CM Code BRW95-MM Code Onset Dates Condition Status SNOMED Code Problem Morbid obesity, unspecified obesity type E66.01 Active 920505188 Problem Morbid obesity due to excess calories E66.01 Active 621721535 Problem Other chronic pain G89.29 Active 74752622 Problem Hypertension, benign I10 Active 99703707 Problem Polyneuropathy G62.9 Active 16148697 Problem Chronic obstructive pulmonary disease, unspecified COPD type J44.9 Active 95433143 Problem Anxiety F41.9 Active 58458412 Problem Primary insomnia F51.01 Active 5959029 Problem Mood disorder F39 Active 75241181 ALLERGIES No Information ENCOUNTERS Encounter Location Date Diagnosis [place] [id number] [place] [address] Jun, [place] [id number] [place] [address] Jun, Polyneuropathy G62.9 [place] [id number] [place] [address] May, Anxiety F41.9 [place] [id number] [place] [address] May, Polyneuropathy G62.9 ; Anxiety F41.9 and Hypertension, benign I10 [facility] [id number] [place] [address] Apr, [place] [id number] [place] [address] Apr, Anxiety F41.9 [place] [address] [place] [address] March, [facility] [id number] [place] [address] March, Anxiety F41.9 [facility] [address] [address] March, Anxiety F41.9 [facility] [address] [address] Feb, Chronic obstructive pulmonary disease, unspecified COPD type J44.9 [facility] [address] [address] Feb, [facility] [address] [address] Feb, [facility] [address] [address] Feb, Anxiety F41.9 [facility] [id number] [place] [address] Jan, Anxiety F41.9 [facility] [address] [address] Dec, Anxiety F41.9 [facility] [id number] [place] [address] Dec, [facility] [id number] [place] [address] Nov, BMI 50.0-59.9, adult Z68.43 ; Other chronic pain G89.29 ; Anxiety F41.9 and Vagina, candidiasis B37.3 [facility] [address] [address] Nov, Anxiety F41.9 [facility] [id number] [place] [address] Nov, Acute nasopharyngitis J00 and BMI 50.0-59.9, adult Z68.43 [facility] [id number] [place] [address] Nov, [facility] [id number] [place] [address] Oct, Anxiety F41.9 [facility] [id number] [place] [address] Oct, [facility] [id number] [place] [address] Sep, Anxiety F41.9 [facility] [id number] [place] [address] Sep, [facility] [id number] [place] [address] Sep, Anxiety F41.9 [facility] [address] [address] Aug, Primary insomnia F51.01 [facility] [id number] [place] [address] Aug, [facility] [id number] [place] [address] Aug, Anxiety F41.9 [facility] [id number] [place] [address] Jul, Primary insomnia F51.01 [facility] [id number] [place] [address] Jul, [facility] [id number] [place] [address] Jul, Strep throat J02.0 [facility] [id number] [place] [address] Jul, Anxiety F41.9 [facility] [id number] [place] [address] Jun, Primary insomnia F51.01 ; Mood disorder F39 and Polyneuropathy G62.9 [place] [id number] [place] [address] Jun, Anxiety F41.9 and Other chronic pain G89.29 [place] [id number] [place] [address] May, Chronic obstructive pulmonary disease, unspecified COPD type J44.9 [place] [address] [address] May, Anxiety F41.9 and Other chronic pain G89.29 [place] [address] [address] Apr, Anxiety F41.9 and Other chronic pain G89.29 [place] [id number] [place] [address] March, Morbid obesity due to excess calories E66.01 [place] [id number] [place] [address] Feb, Morbid obesity due to excess calories E66.01 and SOB (shortness of breath) R06.02 [place] [id number] [place] [address] Feb, [place] [id number] [place] [address] Jan, [place] [id number] [place] [address] Jan, [place] [id number] [place] [address] Jan, Morbid obesity due to excess calories E66.01 [place] [id number] [place] [address] Jan, [place] [id number] [place] [address] Dec, [place] [address] [address] Dec, [facility] [id number] [place] [address] Nov, [facility] [id number] [address] Nov, [facility] [id number] [place] [address] Oct, [facility] [id number] [place] [address] Oct, Sore throat J02.9 and Strep throat J02.0 [facility] [id number] [place] [address] Oct, [facility] [id number] [place] [address] Oct, [facility] [id number] [place] [address] Oct, [facility] [id number] [place] [address] Sep, [facility] [id number] [place] [address] Sep, [facility] [id number] [place] [address] Aug, [facility] [id number] [place] [address] Aug, Morbid obesity, unspecified obesity type E66.01 ; Pain in right leg M79.604 ; Pain of left leg M79.605 ; Other chronic pain G89.29 and Low back pain M54.5 [facility] [address] [address] Aug, [facility] [id number] [place] [address] Aug, [facility] [id number] [place] [address] Jul, [facility] [id number] [place] [address] Jul, [facility] [id number] [place] [address] Jun, [facility] [address] [address] Jun, Anxiety F41.9 ; Chronic obstructive pulmonary disease, unspecified COPD type J44.9 ; Low back pain M54.5 and Other chronic pain G89.29 [facility] [id number] [place] [address] Jun, [facility] [id number] [place] [address] Jun, [facility] [id number] [place] [address] May, Other chronic pain G89.29 ; Pain in left knee M25.562 and Anxiety F41.9 [facility] [id number] [place] [address] May, [facility] [id number] [place] [address] Apr, [facility] [id number] [place] [address] March, MARIELENA (obstructive sleep apnea) G47.33 [facility] [id number] [place] [address] Feb, [facility] [id number] [place] [address] Feb, MARIELENA (obstructive sleep apnea) G47.33 and Acute upper respiratory infection, unspecified J06.9 [facility] [id number] [place] [address] Feb, [place] [id number] [place] [address] Jan, Pain in right leg M79.604 ; Pain of left leg M79.605 and Obesity E66.9 [place] [id number] [place] [address] Jan, [place] [id number] [place] [address] Jan, [place] [id number] [place] [address] Jan, COPD exacerbation J44.1 ; 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 ; Resistant hypertension I10 ; Nonischemic cardiomyopathy I42.9 and Anxiety about health F41.8 [place] [id number] [place] [address] Dec, [place] [id number] [place] [address] Dec, Hypertension, benign I10 ; Tachycardia R00.0 ; Anxiety F41.9 and Pain in unspecified knee M25.569 IMMUNIZATIONS No Known Immunizations SOCIAL HISTORY Never Assessed REASON FOR VISIT PLAN OF CARE VITAL SIGNS MEDICATIONS Medication Instructions Dosage Frequency Start Date End Date Duration Status Symbicort 160-4.5 MCG/ACT INHALE TWO PUFFS BY MOUTH TWICE DAILY 30 Active Clonazepam 0.5 MG Orally Twice a day 1 tablet 12h May, 28 days Active Spiriva HandiHaler 18 MCG INHALE CONTENTS OF ONE CAPSULE BY MOUTH ONCE DAILY (TWO INHALATIONS PER ONE CAPSULE) 30 30 Active Metformin HCl 500 mg TAKE ONE TABLET BY MOUTH TWICE DAILY WITH MEALS 30 Active Cetirizine HCl 10 MG TAKE ONE TABLET BY MOUTH ONCE DAILY NEEDED 30 Active [place] 7.5-325 MG Orally every 6 hrs 1 tablet as needed 6h March, 28 days Active RESULTS No Results PROCEDURES [...]
--- OUTSIDE RECORDS SUMMARY | 2019-06-16 13:12 | XMS REPORT ---
Author Author ARA ISRAEL Organization [facility] Address [address] [place] [address] Care Team Providers Care Atomic Fuel Assembler Name Role Phone ARA ISRAEL Unavailable PROBLEMS Type Condition ICD9-CM Code WFT86-SW Code Onset Dates Condition Status SNOMED Code Problem Morbid obesity, unspecified obesity type E66.01 Active 652490293 Problem Morbid obesity due to excess calories E66.01 Active 614237715 Problem Other chronic pain G89.29 Active 99699954 Problem Hypertension, benign I10 Active 81303662 Problem Polyneuropathy G62.9 Active 55781426 Problem Chronic obstructive pulmonary disease, unspecified COPD type J44.9 Active 42133536 Problem Anxiety F41.9 Active 12617950 Problem Primary insomnia F51.01 Active 8183696 Problem Mood disorder F39 Active 14178482 ALLERGIES No Information ENCOUNTERS Encounter Location Date Diagnosis [place] [id number] [place] [address] Jul, [place] [id number] [place] [address] Jun, Anxiety F41.9 [facility] [id number] [place] [address] Jun, Polyneuropathy G62.9 [facility] [id number] [place] [address] May, Anxiety F41.9 [facility] [id number] [place] [address] May, Polyneuropathy G62.9 ; Anxiety F41.9 and Hypertension, benign I10 [facility] [id number] [place] [address] Apr, [facility] [address] [place] [address] Apr, Anxiety F41.9 [facility] [id number] [place] [address] March, [facility] [id number] [place] [address] March, Anxiety F41.9 [facility] [address] [address] March, Anxiety F41.9 [facility] [id number] [place] [address] Feb, Chronic obstructive pulmonary disease, unspecified COPD type J44.9 [facility] [id number] [place] [address] Feb, [facility] [id number] [place] [address] Feb, [facility] [id number] [place] [address] Feb, Anxiety F41.9 [facility] [address] [address] Jan, Anxiety F41.9 [facility] [id number] [place] [address] Dec, Anxiety F41.9 [facility] [id number] [place] [address] Dec, [facility] [id number] [place] [address] Nov, BMI 50.0-59.9, adult Z68.43 ; Other chronic pain G89.29 ; Anxiety F41.9 and Vagina, candidiasis B37.3 [facility] [id number] [place] [address] Nov, Anxiety F41.9 [facility] [id number] [address] Nov, Acute nasopharyngitis J00 and BMI 50.0-59.9, adult Z68.43 [facility] [id number] [place] [address] Nov, [facility] [id number] [place] [address] Oct, Anxiety F41.9 [facility] [address] [address] Oct, [facility] [id number] [place] [address] Sep, Anxiety F41.9 [facility] [id number] [place] [address] Sep, [facility] [id number] [place] [address] Sep, Anxiety F41.9 [facility] [id number] [place] [address] Aug, Primary insomnia F51.01 [facility] [id number] [place] [address] Aug, [facility] [id number] [place] [address] Aug, Anxiety F41.9 [facility] [id number] [place] [address] Jul, Primary insomnia F51.01 [facility] [id number] [place] [address] Jul, [facility] [id number] [place] [address] 08 Jul, 2017 Strep throat J02.0 [facility] [id number] [place] [address] 06 Jul, 2017 Anxiety F41.9 [facility] [address] [address] Jun, Primary insomnia F51.01 ; Mood disorder F39 and Polyneuropathy G62.9 [facility] [id number] [place] [address] Jun, Anxiety F41.9 and Other chronic pain G89.29 [place] [id number] [place] [address] May, Chronic obstructive pulmonary disease, unspecified COPD type J44.9 [place] [id number] [place] [address] May, Anxiety F41.9 and Other chronic pain G89.29 [place] [id number] [place] [address] Apr, Anxiety F41.9 and Other chronic pain G89.29 [place] [id number] [place] [address] March, Morbid obesity due to excess calories E66.01 [place] [id number] [place] [address] Feb, Morbid obesity due to excess calories E66.01 and SOB (shortness of breath) R06.02 [place] [id number] [place] [address] Feb, [place] [id number] [place] [address] Jan, [place] [id number] [place] [address] Jan, [place] [id number] [place] [address] Jan, Morbid obesity due to excess calories E66.01 [place] [id number] [place] [address] Jan, [facility] [address] [address] Dec, [facility] [id number] [place] [address] Dec, [facility] [id number] [place] [address] Nov, [facility] [id number] [place] [address] Nov, [facility] [id number] [place] [address] Oct, [facility] [id number] [place] [address] Oct, Sore throat J02.9 and Strep throat J02.0 [facility] [id number] [place] [address] Oct, [facility] [id number] [place] [address] Oct, [facility] [id number] [place] [address] Oct, [facility] [address] [address] Sep, [facility] [id number] [place] [address] Sep, [facility] [id number] [address] Aug, [facility] [id number] [place] [address] Aug, Morbid obesity, unspecified obesity type E66.01 ; Pain in right leg M79.604 ; Pain of left leg M79.605 ; Other chronic pain G89.29 and Low back pain M54.5 [facility] [id number] [place] [address] Aug, [facility] [id number] [address] Aug, [facility] [id number] [address] Jul, [facility] [address] [address] Jul, [facility] [id number] [place] [address] Jun, [facility] [id number] [place] [address] Jun, Anxiety F41.9 ; Chronic obstructive pulmonary disease, unspecified COPD type J44.9 ; Low back pain M54.5 and Other chronic pain G89.29 [facility] [id number] [place] [address] Jun, [facility] [id number] [address] Jun, [facility] [id number] [place] [address] May, Other chronic pain G89.29 ; Pain in left knee M25.562 and Anxiety F41.9 [facility] [id number] [address] May, [facility] [id number] [address] Apr, [facility] [id number] [address] March, MARIELENA (obstructive sleep apnea) G47.33 [facility] [id number] [address] Feb, [facility] [id number] [address] Feb, MARIELENA (obstructive sleep apnea) G47.33 and Acute upper respiratory infection, unspecified J06.9 [place] [id number] [place] [address] Feb, [place] [id number] [place] [address] Jan, Pain in right leg M79.604 ; Pain of left leg M79.605 and Obesity E66.9 [place] [address] [address] Jan, [place] [address] [address] Jan, [address] [address] Jan, COPD exacerbation J44.1 ; 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 ; Resistant hypertension I10 ; Nonischemic cardiomyopathy I42.9 and Anxiety about health F41.8 [place] [id number] [place] [address] Dec, [place] [id number] [place] [address] Dec, Hypertension, benign I10 ; Tachycardia R00.0 ; Anxiety F41.9 and Pain in unspecified knee M25.569 IMMUNIZATIONS No Known Immunizations SOCIAL HISTORY Never Assessed REASON FOR VISIT Controlled Med Refill 05/16/18 PLAN OF CARE VITAL SIGNS MEDICATIONS Medication Instructions Dosage Frequency Start Date End Date Duration Status Clonazepam 0.5 MG Orally Twice a day 1 tablet 12h May, 28 days Active [place] 7.5-325 MG Orally every 6 hrs 1 tablet as needed 6h Apr, 28 days Active RESULTS No Results PROCEDURES [...]
--- OUTSIDE RECORDS SUMMARY | 2019-06-16 13:13 | XMS REPORT ---
Author Author ARA ISRAEL Organization [facility] Address [address] [place] [address] Care Team Providers Care First Coat Operator Name Role Phone ARA ISRAEL Unavailable PROBLEMS Type Condition ICD9-CM Code HHG13-FZ Code Onset Dates Condition Status SNOMED Code Problem Morbid obesity, unspecified obesity type E66.01 Active 313130176 Problem Morbid obesity due to excess calories E66.01 Active 120546339 Problem Other chronic pain G89.29 Active 18294867 Problem Hypertension, benign I10 Active 05380879 Problem Polyneuropathy G62.9 Active 56548316 Problem Chronic obstructive pulmonary disease, unspecified COPD type J44.9 Active 96175369 Problem Anxiety F41.9 Active 29623999 Problem Primary insomnia F51.01 Active 0424070 Problem Mood disorder F39 Active 82192084 ALLERGIES No Information ENCOUNTERS Encounter Location Date Diagnosis [facility] [id number] [place] [address] Jun, [place] [id number] [place] [address] May, Anxiety F41.9 [facility] [id number] [place] [address] May, Polyneuropathy G62.9 ; Anxiety F41.9 and Hypertension, benign I10 [facility] [id number] [place] [address] Apr, [facility] [id number] [place] [address] Apr, Anxiety F41.9 [facility] [id number] [place] [address] March, [facility] [id number] [place] [address] March, Anxiety F41.9 [facility] [id number] [place] [address] March, Anxiety F41.9 [facility] [id number] [place] [address] Feb, Chronic obstructive pulmonary disease, unspecified COPD type J44.9 [facility] [id number] [place] [address] Feb, [facility] [id number] [place] [address] Feb, [facility] [id number] [place] [address] Feb, Anxiety F41.9 [facility] [id number] [place] [address] Jan, Anxiety F41.9 [facility] [id number] [place] [address] Dec, Anxiety F41.9 [facility] [id number] [place] [address] Dec, [facility] [id number] [place] [address] Nov, BMI 50.0-59.9, adult Z68.43 ; Other chronic pain G89.29 ; Anxiety F41.9 and Vagina, candidiasis B37.3 [facility] [id number] [place] [address] Nov, Anxiety F41.9 [facility] [id number] [place] [address] Nov, Acute nasopharyngitis J00 and BMI 50.0-59.9, adult Z68.43 [facility] [id number] [place] [address] Nov, [facility] [id number] [place] [address] Oct, Anxiety F41.9 [facility] [id number] [place] [address] Oct, [facility] [id number] [place] [address] Sep, Anxiety F41.9 [facility] [address] [address] Sep, [facility] [id number] [place] [address] Sep, Anxiety F41.9 [facility] [id number] [place] [address] Aug, Primary insomnia F51.01 [facility] [address] [address] Aug, [facility] [id number] [place] [address] Aug, Anxiety F41.9 [facility] [id number] [place] [address] Jul, Primary insomnia F51.01 [facility] [id number] [place] [address] Jul, [facility] [id number] [place] [address] Jul, Strep throat J02.0 [facility] [id number] [place] [address] Jul, Anxiety F41.9 [facility] [id number] [place] [address] Jun, Primary insomnia F51.01 ; Mood disorder F39 and Polyneuropathy G62.9 [facility] [id number] [place] [address] Jun, Anxiety F41.9 and Other chronic pain G89.29 [facility] [id number] [place] [address] May, Chronic obstructive pulmonary disease, unspecified COPD type J44.9 [facility] [id number] [place] [address] May, Anxiety F41.9 and Other chronic pain G89.29 [facility] [id number] [place] [address] Apr, Anxiety F41.9 and Other chronic pain G89.29 [facility] [id number] [place] [address] March, Morbid obesity due to excess calories E66.01 [facility] [id number] [place] [address] Feb, Morbid obesity due to excess calories E66.01 and SOB (shortness of breath) R06.02 [facility] [address] [address] Feb, [facility] [id number] [place] [address] Jan, [facility] [id number] [place] [address] Jan, [facility] [id number] [place] [address] Jan, Morbid obesity due to excess calories E66.01 [facility] [address] [address] Jan, [facility] [id number] [place] [address] Dec, [facility] [address] [address] Dec, [facility] [id number] [address] Nov, [facility] [id number] [place] [address] Nov, [facility] [id number] [place] [address] Oct, [facility] [id number] [place] [address] Oct, Sore throat J02.9 and Strep throat J02.0 [facility] [id number] [place] [address] Oct, [facility] [id number] [place] [address] Oct, [facility] [id number] [place] [address] Oct, [facility] [id number] [place] [address] Sep, [facility] [id number] [place] [address] Sep, [facility] [id number] [place] [address] Aug, [facility] [id number] [place] [address] Aug, Morbid obesity, unspecified obesity type E66.01 ; Pain in right leg M79.604 ; Pain of left leg M79.605 ; Other chronic pain G89.29 and Low back pain M54.5 [facility] [id number] [place] [address] Aug, [facility] [id number] [place] [address] Aug, [facility] [id number] [place] [address] Jul, [facility] [address] [address] Jul, [facility] [id number] [place] [address] Jun, [facility] [id number] [address] Jun, Anxiety F41.9 ; Chronic obstructive pulmonary disease, unspecified COPD type J44.9 ; Low back pain M54.5 and Other chronic pain G89.29 [facility] [id number] [place] [address] Jun, [facility] [id number] [place] [address] Jun, [facility] [id number] [place] [address] May, Other chronic pain G89.29 ; Pain in left knee M25.562 and Anxiety F41.9 [facility] [id number] [place] [address] May, [facility] [id number] [place] [address] Apr, [facility] [address] [address] March, MARIELENA (obstructive sleep apnea) G47.33 [facility] [id number] [address] Feb, [facility] [id number] [place] [address] Feb, MARIELENA (obstructive sleep apnea) G47.33 and Acute upper respiratory infection, unspecified J06.9 [facility] [address] [address] Feb, [facility] [id number] [place] [address] Jan, Pain in right leg M79.604 ; Pain of left leg M79.605 and Obesity E66.9 [place] [id number] [place] [address] Jan, [place] [id number] [place] [address] Jan, [place] [id number] [place] [address] Jan, COPD exacerbation J44.1 ; 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 ; Resistant hypertension I10 ; Nonischemic cardiomyopathy I42.9 and Anxiety about health F41.8 [place] [id number] [place] [address] Dec, [place] [id number] [place] [address] Dec, Hypertension, benign I10 ; Tachycardia R00.0 ; Anxiety F41.9 and Pain in unspecified knee M25.569 IMMUNIZATIONS No Known Immunizations SOCIAL HISTORY Never Assessed REASON FOR VISIT med refill PLAN OF CARE VITAL SIGNS MEDICATIONS Medication Instructions Dosage Frequency Start Date End Date Duration Status Metformin HCl 500 mg TAKE ONE TABLET BY MOUTH TWICE DAILY WITH MEALS 30 Active RESULTS No Results PROCEDURES No Known procedures INSTRUCTIONS MEDICATIONS ADMINISTERED No Known Medications MEDICAL (GENERAL) HISTORY Type Description Date Medical History Hx of pneumonia Medical History HTN Medical History chronic pain in knees and back Medical History anxiety Surgical History x2 Surgical History cholecystectomy Surgical History tubal ligation Hospitalization History [facility] Pneumonia 01/12/16
--- OUTSIDE RECORDS SUMMARY | 2019-06-16 13:13 | XMS REPORT ---
Author Author ARA ISRAEL Organization [facility] Address [address] [place] [address] Care Team Providers Care Tourist Escort Name Role Phone ARA ISRAEL Unavailable PROBLEMS Type Condition ICD9-CM Code [id number] Code Onset Dates Condition Status SNOMED Code Problem Morbid obesity, unspecified obesity type E66.01 Active 060494951 Problem Morbid obesity due to excess calories E66.01 Active 272591001 Problem Other chronic pain G89.29 Active 80383953 Problem Hypertension, benign I10 Active 21021680 Problem Polyneuropathy G62.9 Active 74233595 Problem Chronic obstructive pulmonary disease, unspecified COPD type J44.9 Active 91922216 Problem Anxiety F41.9 Active 37702032 Problem Primary insomnia F51.01 Active 5269035 Problem Mood disorder F39 Active 49525174 ALLERGIES No Known Allergies ENCOUNTERS Encounter Location Date Diagnosis [facility] [id number] [place] [address] Jun, [place] [id number] [place] [address] May, Anxiety F41.9 [facility] [id number] [place] [address] May, Polyneuropathy G62.9 ; Anxiety F41.9 and Hypertension, benign I10 [facility] [address] [place] [address] Apr, [facility] [id number] [place] [address] Apr, Anxiety F41.9 [facility] [id number] [place] [address] March, [facility] [id number] [place] [address] March, Anxiety F41.9 [facility] [id number] [place] [address] March, Anxiety F41.9 [facility] [id number] [place] [address] Feb, Chronic obstructive pulmonary disease, unspecified COPD type J44.9 [facility] [address] [address] Feb, [facility] [id number] [place] [address] Feb, [facility] [address] [address] Feb, Anxiety F41.9 [facility] [id number] [place] [address] Jan, Anxiety F41.9 [facility] [id number] [place] [address] Dec, Anxiety F41.9 [facility] [address] [address] Dec, [facility] [id number] [place] [address] Nov, BMI 50.0-59.9, adult Z68.43 ; Other chronic pain G89.29 ; Anxiety F41.9 and Vagina, candidiasis B37.3 [facility] [id number] [place] [address] Nov, Anxiety F41.9 [facility] [id number] [place] [address] Nov, Acute nasopharyngitis J00 and BMI 50.0-59.9, adult Z68.43 [facility] [id number] [place] [address] Nov, [facility] [address] [place] [address] Oct, Anxiety F41.9 [facility] [id number] [place] [address] Oct, [facility] [id number] [place] [address] Sep, Anxiety F41.9 [facility] [id number] [place] [address] Sep, [facility] [id number] [place] [address] Sep, Anxiety F41.9 [facility] [id number] [place] [address] Aug, Primary insomnia F51.01 [facility] [id number] [place] [address] Aug, [facility] [id number] [place] [address] Aug, Anxiety F41.9 [facility] [id number] [place] [address] Jul, Primary insomnia F51.01 [facility] [id number] [place] [address] Jul, [facility] [id number] [place] [address] Jul, Strep throat J02.0 [facility] [id number] [place] [address] Jul, Anxiety F41.9 [facility] [id number] [place] [address] Jun, Primary insomnia F51.01 ; Mood disorder F39 and Polyneuropathy G62.9 [facility] [id number] [place] [address] Jun, Anxiety F41.9 and Other chronic pain G89.29 [facility] [id number] [place] [address] May, Chronic obstructive pulmonary disease, unspecified COPD type J44.9 [facility] [id number] [place] [address] May, Anxiety F41.9 and Other chronic pain G89.29 [facility] [id number] [place] [address] Apr, Anxiety F41.9 and Other chronic pain G89.29 [facility] [id number] [place] [address] March, Morbid obesity due to excess calories E66.01 [facility] [id number] [place] [address] Feb, Morbid obesity due to excess calories E66.01 and SOB (shortness of breath) R06.02 [facility] [address] [address] Feb, [facility] [id number] [place] [address] Jan, [facility] [address] [place] [address] Jan, [facility] [id number] [place] [address] Jan, Morbid obesity due to excess calories E66.01 [facility] [address] [place] [address] Jan, [facility] [id number] [place] [address] Dec, [facility] [address] [place] [address] Dec, [facility] [id number] [place] [address] Nov, [facility] [id number] [place] [address] Nov, [facility] [id number] [place] [address] Oct, [facility] [id number] [place] [address] Oct, Sore throat J02.9 and Strep throat J02.0 [facility] [id number] [place] [address] Oct, [facility] [id number] [place] [address] Oct, [facility] [id number] [place] [address] Oct, [facility] [id number] [place] [address] Sep, [facility] [id number] [place] [address] Sep, [facility] [id number] [place] [address] Aug, [facility] [id number] [place] [address] Aug, Morbid obesity, unspecified obesity type E66.01 ; Pain in right leg M79.604 ; Pain of left leg M79.605 ; Other chronic pain G89.29 and Low back pain M54.5 [facility] [id number] [place] [address] Aug, [facility] [id number] [place] [address] Aug, [facility] [id number] [place] [address] Jul, [facility] [address] [address] Jul, [facility] [id number] [place] [address] Jun, [facility] [id number] [place] [address] Jun, Anxiety F41.9 ; Chronic obstructive pulmonary disease, unspecified COPD type J44.9 ; Low back pain M54.5 and Other chronic pain G89.29 [facility] [id number] [place] [address] Jun, [facility] [id number] [place] [phone] Jun, [facility] [id number] [place] [phone] May, Other chronic pain G89.29 ; Pain in left knee M25.562 and Anxiety F41.9 [facility] [id number] [place] [phone] May, [facility] [id number] [place] [phone] Apr, [facility] [id number] [place] [phone] March, MARIELENA (obstructive sleep apnea) G47.33 [facility] [address] [address] Feb, [facility] [id number] [place] [phone] Feb, MARIELENA (obstructive sleep apnea) G47.33 and Acute upper respiratory infection, unspecified J06.9 [facility] [id number] [address] Feb, [facility] [id number] [place] [phone] Jan, Pain in right leg M79.604 ; Pain of left leg M79.605 and Obesity E66.9 [place] [facility] [id number] [place] [phone] Jan, [facility] [id number] [place] [phone] Jan, [facility] [id number] [place] [phone] Jan, COPD exacerbation J44.1 ; 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 ; Resistant hypertension I10 ; Nonischemic cardiomyopathy I42.9 and Anxiety about health F41.8 [facility] [id number] [place] [phone] Dec, [place] [id number] [place] [phone] Dec, Hypertension, benign I10 ; Tachycardia R00.0 ; Anxiety F41.9 and Pain in unspecified knee M25.569 IMMUNIZATIONS No Known Immunizations SOCIAL HISTORY Never Assessed REASON FOR VISIT Refill request PLAN OF CARE VITAL SIGNS MEDICATIONS Medication Instructions Dosage Frequency Start Date End Date Duration Status ProAir HFA 108 (90 Base) MCG/ACT Inhalation every 6 hrs 2 puffs as needed 6h Feb, Active RESULTS No Results PROCEDURES No Known procedures INSTRUCTIONS MEDICATIONS ADMINISTERED No Known Medications MEDICAL (GENERAL) HISTORY Type Description Date Medical History Hx of pneumonia Medical History HTN Medical History chronic pain in knees and back Medical History anxiety Surgical History x2 Surgical History cholecystectomy Surgical History tubal ligation Hospitalization History [facility] Pneumonia 01/12/16
--- OUTSIDE RECORDS SUMMARY | 2019-06-16 13:13 | XMS REPORT ---
Author Author ARA ISRAEL Organization [facility] Address [address] [place] [address] Care Team Providers Care Electron Beam Photo Mask Technician Name Role Phone ARA ISRAEL Unavailable PROBLEMS Type Condition ICD9-CM Code FGM43-GT Code Onset Dates Condition Status SNOMED Code Problem Morbid obesity, unspecified obesity type E66.01 Active 335248631 Problem Morbid obesity due to excess calories E66.01 Active 062580640 Problem Other chronic pain G89.29 Active 70302685 Problem Hypertension, benign I10 Active 82031306 Problem Polyneuropathy G62.9 Active 91431598 Problem Chronic obstructive pulmonary disease, unspecified COPD type J44.9 Active 44358164 Problem Anxiety F41.9 Active 90166258 Problem Primary insomnia F51.01 Active 8010877 Problem Mood disorder F39 Active 28371365 ALLERGIES No Information ENCOUNTERS Encounter Location Date Diagnosis [facility] [id number] [place] [address] Jun, [place] [id number] [place] [address] May, Anxiety F41.9 [facility] [id number] [place] [address] May, Polyneuropathy G62.9 ; Anxiety F41.9 and Hypertension, benign I10 [facility] [id number] [place] [address] Apr, [facility] [id number] [place] [address] Apr, Anxiety F41.9 [facility] [id number] [place] [address] March, [facility] [id number] [place] [address] March, Anxiety F41.9 [facility] [id number] [place] [address] March, Anxiety F41.9 [facility] [id number] [place] [address] Feb, Chronic obstructive pulmonary disease, unspecified COPD type J44.9 [facility] [id number] [place] [address] Feb, [facility] [id number] [place] [address] Feb, [facility] [id number] [place] [address] Feb, Anxiety F41.9 [facility] [id number] [place] [address] Jan, Anxiety F41.9 [facility] [id number] [place] [address] Dec, Anxiety F41.9 [facility] [id number] [place] [address] Dec, [facility] [id number] [place] [address] Nov, BMI 50.0-59.9, adult Z68.43 ; Other chronic pain G89.29 ; Anxiety F41.9 and Vagina, candidiasis B37.3 [facility] [id number] [place] [address] Nov, Anxiety F41.9 [facility] [id number] [place] [address] Nov, Acute nasopharyngitis J00 and BMI 50.0-59.9, adult Z68.43 [facility] [id number] [place] [address] Nov, [facility] [id number] [place] [address] Oct, Anxiety F41.9 [facility] [id number] [place] [address] Oct, [facility] [id number] [place] [address] Sep, Anxiety F41.9 [facility] [address] [address] Sep, [facility] [id number] [place] [address] Sep, Anxiety F41.9 [facility] [id number] [place] [address] Aug, Primary insomnia F51.01 [facility] [address] [address] Aug, [facility] [id number] [place] [address] Aug, Anxiety F41.9 [facility] [id number] [place] [address] Jul, Primary insomnia F51.01 [facility] [id number] [place] [address] Jul, [facility] [id number] [place] [address] Jul, Strep throat J02.0 [facility] [id number] [place] [address] Jul, Anxiety F41.9 [facility] [id number] [place] [address] Jun, Primary insomnia F51.01 ; Mood disorder F39 and Polyneuropathy G62.9 [facility] [id number] [place] [address] Jun, Anxiety F41.9 and Other chronic pain G89.29 [facility] [id number] [place] [address] May, Chronic obstructive pulmonary disease, unspecified COPD type J44.9 [facility] [id number] [place] [address] May, Anxiety F41.9 and Other chronic pain G89.29 [facility] [id number] [place] [address] Apr, Anxiety F41.9 and Other chronic pain G89.29 [facility] [id number] [place] [address] March, Morbid obesity due to excess calories E66.01 [facility] [address] [place] [address] Feb, Morbid obesity due to excess calories E66.01 and SOB (shortness of breath) R06.02 [facility] [address] [address] Feb, [facility] [id number] [place] [address] Jan, [facility] [id number] [place] [address] Jan, [facility] [id number] [place] [address] Jan, Morbid obesity due to excess calories E66.01 [facility] [address] [address] Jan, [facility] [id number] [place] [address] Dec, [facility] [address], [place] [address] Dec, [facility] [id number] [address] Nov, [facility] [id number] [place] [address] Nov, [facility] [id number] [place] [address] Oct, [facility] [id number] [place] [address] Oct, Sore throat J02.9 and Strep throat J02.0 [facility] [id number] [place] [address] Oct, [facility] [id number] [place] [address] Oct, [facility] [id number] [place] [address] Oct, [facility] [id number] [place] [address] Sep, [facility] [id number] [place] [address] Sep, [facility] [id number] [place] [address] Aug, [facility] [id number] [place] [address] Aug, Morbid obesity, unspecified obesity type E66.01 ; Pain in right leg M79.604 ; Pain of left leg M79.605 ; Other chronic pain G89.29 and Low back pain M54.5 [facility] [id number] [place] [address] Aug, [facility] [id number] [place] [address] Aug, [facility] [id number] [place] [address] Jul, [facility] [address] [address] Jul, [facility] [id number] [place] [address] Jun, [facility] [id number] [address] Jun, Anxiety F41.9 ; Chronic obstructive pulmonary disease, unspecified COPD type J44.9 ; Low back pain M54.5 and Other chronic pain G89.29 [facility] [id number] [place] [address] Jun, [facility] [id number] [place] [address] Jun, [facility] [id number] [place] [address] May, Other chronic pain G89.29 ; Pain in left knee M25.562 and Anxiety F41.9 [facility] [id number] [place] [address] May, [facility] [id number] [place] [address] Apr, [facility] [address], [place] [address] March, MARIELENA (obstructive sleep apnea) G47.33 [facility] [id number] [address] Feb, [facility] [id number] [place] [address] Feb, MARIELENA (obstructive sleep apnea) G47.33 and Acute upper respiratory infection, unspecified J06.9 [facility] [address] [address] Feb, [facility] [id number] [place] [address] Jan, Pain in right leg M79.604 ; Pain of left leg M79.605 and Obesity E66.9 [facility] [id number] [place] [address] Jan, [place] [id number] [place] [address] Jan, [place] [id number] [place] [address] Jan, COPD exacerbation J44.1 ; 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
--- OUTSIDE RECORDS SUMMARY | 2019-06-16 13:14 | XMS REPORT ---
Author Author ARA ISRAEL [facility] Address [facility] [place] [address] Care Team Providers Care Travel Registered Nurse Oncology Name Role Phone ARA ISRAEL Unavailable PROBLEMS Unknown Problems ALLERGIES Unknown Allergies SOCIAL HISTORY No smoking Hx information available PLAN OF CARE VITAL SIGNS MEDICATIONS Medication Instructions Dosage Frequency Start Date End Date Duration Status Clonazepam 0.5 MG Orally Once a day 1 tablet 24h May, Active RESULTS No Results PROCEDURES No Known procedures IMMUNIZATIONS No Known Immunizations
--- OUTSIDE RECORDS SUMMARY | 2019-06-16 13:14 | XMS REPORT ---
Author ARA Gonzales Organization [employer] Address Unknown Phone Unavailable Care Team Providers Care Inbound Customer Service Agent Name Role Phone ARA ISRAEL CP Unavailable Allergies No Known Allergies Problems No Known Problems Medications Medication Code System Code Instructions Start Date End Date Status Dosage [facility] [address]-46 7.5-325 MG Orally every 6 hrs February 07, 2016 1 tablet as needed Results No Known Results Summary Purpose [employer] Submission
--- OUTSIDE RECORDS SUMMARY | 2019-06-16 13:14 | XMS REPORT ---
Author ARA Gonzales Organization [employer] Address Unknown Phone Unavailable Care Team Providers Care Culture Room Worker Name Role Phone ARA ISRAEL CP Unavailable Allergies No Known Allergies Problems No Known Problems Medications Medication Code System Code Instructions Start Date End Date Status Dosage [facility] [address]-64 7.5-325 MG Orally every 6 hrs February 07, 2016 1 tablet as needed Results No Known Results Summary Purpose [employer] Submission
--- OUTSIDE RECORDS SUMMARY | 2019-06-16 13:14 | XMS REPORT ---
Author Author ARA ISREAL Organization [facility] Address [address] [place] [address] Care Team Providers Care Plaster Tender Name Role Phone ARA ISRAEL Unavailable PROBLEMS Type Condition ICD9-CM Code ULT58-YO Code Onset Dates Condition Status SNOMED Code Problem Other chronic pain G89.29 Active 24892482 Problem Morbid obesity, unspecified obesity type E66.01 Active 365830958 Problem Primary insomnia F51.01 Active 9840725 Problem Mood disorder F39 Active 37290074 Problem Anxiety F41.9 Active 01953353 Problem Morbid obesity due to excess calories E66.01 Active 885482579 Problem Polyneuropathy G62.9 Active 84526608 Problem Chronic obstructive pulmonary disease, unspecified COPD type J44.9 Active 17428228 ALLERGIES No Information ENCOUNTERS Encounter Location Date Diagnosis [facility] [id number] [place] [address] May, [facility] [id number] [place] [address] Apr, [facility] [id number] [place] [address] Apr, Anxiety F41.9 [facility] [id number] [place] [address] March, [facility] [id number] [place] [address] March, Anxiety F41.9 [facility] [id number] [place] [address] March, Anxiety F41.9 [facility] [id number] [place] [address] Feb, Chronic obstructive pulmonary disease, unspecified COPD type J44.9 [facility] [id number] [place] [address] Feb, [facility] [address] [address] Feb, [facility] [id number] [place] [address] Feb, Anxiety F41.9 [facility] [address] [address] Jan, Anxiety F41.9 [facility] [address] [address] Dec, Anxiety F41.9 [facility] [address] [address] Dec, [facility] [address] [address] Nov, BMI 50.0-59.9, adult Z68.43 ; Other chronic pain G89.29 ; Anxiety F41.9 and Vagina, candidiasis B37.3 [facility] [address] [address] Nov, Anxiety F41.9 [facility] [id number] [place] [address] Nov, Acute nasopharyngitis J00 and BMI 50.0-59.9, adult Z68.43 [facility] [id number] [place] [address] Nov, [facility] [id number] [place] [address] Oct, Anxiety F41.9 [facility] [id number] [place] [address] Oct, [facility] [address] [address] Sep, Anxiety F41.9 [facility] [id number] [place] [address] Sep, [facility] [id number] [place] [address] Sep, Anxiety F41.9 [facility] [id number] [place] [address] Aug, Primary insomnia F51.01 [facility] [address] [address] Aug, [facility] [address] [address] Aug, Anxiety F41.9 [facility] [id number] [place] [address] Jul, Primary insomnia F51.01 [facility] [address] [address] Jul, [facility] [id number] [place] [address] Jul, Strep throat J02.0 [facility] [id number] [place] [address] Jul, Anxiety F41.9 [facility] [id number] [place] [address] Jun, Primary insomnia F51.01 ; Mood disorder F39 and Polyneuropathy G62.9 [facility] [id number] [place] [address] Jun, Anxiety F41.9 and Other chronic pain G89.29 [facility] [id number] [place] [address] May, Chronic obstructive pulmonary disease, unspecified COPD type J44.9 [facility] [id number] [place] [address] May, Anxiety F41.9 and Other chronic pain G89.29 [facility] [id number] [place] [address] Apr, Anxiety F41.9 and Other chronic pain G89.29 [facility] [id number] [place] [address] March, Morbid obesity due to excess calories E66.01 [facility] [id number] [place] [address] Feb, Morbid obesity due to excess calories E66.01 and SOB (shortness of breath) R06.02 [facility] [id number] [place] [address] Feb, [facility] [id number] [place] [address] Jan, [facility] [id number] [place] [address] Jan, [facility] [id number] [place] [address] Jan, Morbid obesity due to excess calories E66.01 [facility] [id number] [place] [address] Jan, [facility] [address] [address] Dec, [facility] [id number] [place] [address] Dec, [facility] [address] [address] Nov, [facility] [id number] [place] [address] Nov, [facility] [address] [address] Oct, [facility] [id number] [address] Oct, Sore throat J02.9 and Strep throat J02.0 [facility] [id number] [address] Oct, [facility] [id number] [place] [address] Oct, [facility] [id number] [place] [address] Oct, [facility] [id number] [place] [address] Sep, [facility] [id number] [place] [address] Sep, [facility] [id number] [place] [address] Aug, [facility] [id number] [place] [address] Aug, Morbid obesity, unspecified obesity type E66.01 ; Pain in right leg M79.604 ; Pain of left leg M79.605 ; Other chronic pain G89.29 and Low back pain M54.5 [facility] [address] [address] Aug, [facility] [id number] [place] [address] Aug, [facility] [address] [address] Jul, [facility] [id number] [place] [address] Jul, [facility] [address] [address] Jun, [facility] [address] [address] Jun, Anxiety F41.9 ; Chronic obstructive pulmonary disease, unspecified COPD type J44.9 ; Low back pain M54.5 and Other chronic pain G89.29 [facility] [id number] [place] [address] Jun, [facility] [id number] [place] [address] Jun, [facility] [address] [address] May, Other chronic pain G89.29 ; Pain in left knee M25.562 and Anxiety F41.9 [place] [address] [address] May, [place] [id number] [place] [address] Apr, [place] [address] [address] March, MARIELENA (obstructive sleep apnea) G47.33 [place] [id number] [place] [address] Feb, [place] [id number] [place] [address] Feb, MARIELENA (obstructive sleep apnea) G47.33 and Acute upper respiratory infection, unspecified J06.9 [facility] [id number] [place] [address] Feb, [facility] [id number] [place] [address] Jan, Pain in right leg M79.604 ; Pain of left leg M79.605 and Obesity E66.9 [facility] [id number] [place] [address] Jan, [place] [id number] [place] [address] Jan, [place] [id number] [facility] [id number] [address] Jan, COPD exacerbation J44.1 ; 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 ; Resistant hypertension I10 ; Nonischemic cardiomyopathy I42.9 and Anxiety about health F41.8 [facility] [address] [facility] [id number] [address] Dec, [facility] [id number] [address] Dec, Hypertension, benign I10 ; Tachycardia R00.0 ; Anxiety F41.9 and Pain in unspecified knee M25.569 IMMUNIZATIONS No Known Immunizations SOCIAL HISTORY Never Assessed REASON FOR VISIT Controlled Med Refill 01/23/18 PLAN OF CARE VITAL SIGNS MEDICATIONS Medication Instructions Dosage Frequency Start Date End Date Duration Status [place] 7.5-325 MG Orally every 6 hrs 1 tablet as needed 6h 07 Jan, 2018 28 days Active Clonazepam 0.5 MG [...]
--- OUTSIDE RECORDS SUMMARY | 2019-06-16 13:14 | XMS REPORT ---
Author Author ARA ISRAEL Organization [facility] Address [address] [place] [address] Care Team Providers Care Able Bodied Tankerman Name Role Phone ARA ISRAEL Unavailable PROBLEMS Type Condition ICD9-CM Code NOE11-QF Code Onset Dates Condition Status SNOMED Code Problem Other chronic pain G89.29 Active 29448556 Problem Morbid obesity, unspecified obesity type E66.01 Active 062648929 Problem Primary insomnia F51.01 Active 3062220 Problem Mood disorder F39 Active 48523834 Problem Anxiety F41.9 Active 05549979 Problem Morbid obesity due to excess calories E66.01 Active 595577499 Problem Polyneuropathy G62.9 Active 62874459 Problem Chronic obstructive pulmonary disease, unspecified COPD type J44.9 Active 73206023 ALLERGIES No Information ENCOUNTERS Encounter Location Date Diagnosis [place] [address] [address] Feb, Anxiety F41.9 [place] [address] [address] Jan, Anxiety F41.9 [place] [address] [address] Dec, Anxiety F41.9 [place] [address] [address] Dec, [place] [address] [address] Nov, BMI 50.0-59.9, adult Z68.43 ; Other chronic pain G89.29 ; Anxiety F41.9 and Vagina, candidiasis B37.3 [place] [address] [address] Nov, Anxiety F41.9 [facility] [address] [place] [address] Nov, Acute nasopharyngitis J00 and BMI 50.0-59.9, adult Z68.43 [facility] [address] [place] [id number] [place] [address] Nov, [facility] [address] [address] Oct, Anxiety F41.9 [facility] [address] [address] Oct, [facility] [address] [address] Sep, Anxiety F41.9 [facility] [address] [address] Sep, [facility] [address] [address] Sep, Anxiety F41.9 [facility] [address] [place] [address] [id number] [place] [address] Aug, Primary insomnia F51.01 [facility] [address] [place] [address] [id number] [place] [address] Aug, [facility] [address] [id number] [place] [address] Aug, Anxiety F41.9 [facility] [address] [id number] [place] [address] Jul, Primary insomnia F51.01 [facility] [address] [address] Jul, [facility] [address] [place] [address] [id number] [place] [address] 08 Jul, 2017 Strep throat J02.0 [facility] [address] [address] Jul, Anxiety F41.9 [facility] [address] [address] [id number] [place] [address] Jun, Primary insomnia F51.01 ; Mood disorder F39 and Polyneuropathy G62.9 [facility] [address] [address] [id number] [place] [address] Jun, Anxiety F41.9 and Other chronic pain G89.29 [facility] [address] [place] [id number] [place] [address] May, Chronic obstructive pulmonary disease, unspecified COPD type J44.9 [place] [address] [place] [id number] [place] [address] May, Anxiety F41.9 and Other chronic pain G89.29 [place] [address] [address] [id number] [place] [address] Apr, Anxiety F41.9 and Other chronic pain G89.29 [facility] [address] [place] [id number] [place] [address] March, Morbid obesity due to excess calories E66.01 [place] [address] [place] [id number] [place] [address] Feb, Morbid obesity due to excess calories E66.01 and SOB (shortness of breath) R06.02 [place] [address] [place] [id number] [place] [address] Feb, [facility] [address] [place] [id number] [place] [address] Jan, [place] [address] [place] [id number] [place] [address] Jan, [facility] [address] [place] [id number] [place] [address] Jan, Morbid obesity due to excess calories E66.01 [facility] [address] [place] [id number] [place] [address] Jan, [facility] [address] [address] Dec, [facility] [address] [address] Dec, [facility] [id number] [place] [address] Nov, [facility] [address] [place] [address] Nov, [facility] [id number] [place] [address] Oct, [facility] [address] [place] [address] Oct, Sore throat J02.9 and Strep throat J02.0 [facility] [address] [place] [address] Oct, [facility] [address] [address] Oct, [facility] [id number] [place] [address] Oct, [facility] [address] [address] Sep, [facility] [address] [place] [address] Sep, [facility] [address] [address] Aug, [facility] [address] [place] [address] Aug, Morbid obesity, unspecified obesity type E66.01 ; Pain in right leg M79.604 ; Pain of left leg M79.605 ; Other chronic pain G89.29 and Low back pain M54.5 [facility] [address] [address] Aug, [facility] [address] [place] [address] Aug, [facility] [address] [place] [id number] [place] [address] Jul, [facility] [address] [place] [id number] [place] [address] Jul, [facility] [address] [place] [id number] [place] [address] Jun, [facility] [address] [place] [id number] [place] [address] Jun, Anxiety F41.9 ; Chronic obstructive pulmonary disease, unspecified COPD type J44.9 ; Low back pain M54.5 and Other chronic pain G89.29 [facility] [address] [place] [id number] [place] [address] Jun, [facility] [address] [place] [id number] [place] [address] Jun, [facility] [address] [place] [id number] [place] [address] May, Other chronic pain G89.29 ; Pain in left knee M25.562 and Anxiety F41.9 [facility] [address] [place] [id number] [address] May, [facility] [address] [place] [id number] [address] Apr, [facility] [address] [place] [id number] [place] [address] March, MARIELENA (obstructive sleep apnea) G47.33 [facility] [address] [address] Feb, [facility] [address] [place] [id number] [place] [address] Feb, MARIELENA (obstructive sleep apnea) G47.33 and Acute upper respiratory infection, unspecified J06.9 [place] [address] [place] [id number] [place] [address] Feb, [place] [address] [place] [id number] [place] [address] Jan, Pain in right leg M79.604 ; Pain of left leg M79.605 and Obesity E66.9 [place] [address] [place] [id number] [place] [address] Jan, [address] [address] Jan, [address] [address] Jan, COPD exacerbation J44.1 ; 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 ; Resistant hypertension I10 ; Nonischemic cardiomyopathy I42.9 and Anxiety about health F41.8 [place] [address] [place] [id number] [place] [address] Dec, [place] [id number] [place] [address] Dec, Hypertension, benign I10 ; Tachycardia R00.0 ; Anxiety F41.9 and Pain in unspecified knee M25.569 IMMUNIZATIONS No Known Immunizations SOCIAL HISTORY Never Assessed REASON FOR VISIT [facility] PULMONARY FUNCTION TECHNOLOGIST/CARDIOTHORACIC SURGEON PLAN OF CARE Activity Details Follow Up prn Reason: VITAL SIGNS MEDICATIONS Unknown Medications RESULTS No Results PROCEDURES Procedure Date Ordered Result Body Site PULMONARY FUNCTION TEST (IN-HOUSE) 2017-06-13 N/A RESPIRATORY FLOW VOLUME LOOP June 13, 2017 NEB/MDI DEMO June 13, 2017 SPRIOMETRY CHALLENGE June 13, 2017 SPIROMETRY June 13, 2017 INSTRUCTIONS MEDICATIONS ADMINISTERED No Known Medications MEDICAL (GENERAL) HISTORY Type Description Date Medical History Hx of pneumonia Medical History HTN Medical History chronic pain in knees and back Medical History anxiety Surgical History x2 Surgical History cholecystectomy Surgical History tubal ligation Hospitalization History [facility] Pneumonia 01/12/16
--- OUTSIDE RECORDS SUMMARY | 2019-06-16 13:14 | XMS REPORT ---
Author Author ARA ISRAEL Organization [facility] Address [address] [place] [address] Care Team Providers Care Entry Level Electrical Engineer Name Role Phone ARA ISRAEL Unavailable PROBLEMS Type Condition ICD9-CM Code JPK99-HW Code Onset Dates Condition Status SNOMED Code Problem Morbid obesity, unspecified obesity type E66.01 Active 874656288 Problem Morbid obesity due to excess calories E66.01 Active 504959007 Problem Other chronic pain G89.29 Active 96894528 Problem Hypertension, benign I10 Active 63434393 Problem Polyneuropathy G62.9 Active 02777929 Problem Chronic obstructive pulmonary disease, unspecified COPD type J44.9 Active 51443293 Problem Anxiety F41.9 Active 43318199 Problem Primary insomnia F51.01 Active 0096545 Problem Mood disorder F39 Active 52436315 ALLERGIES No Information ENCOUNTERS Encounter Location Date Diagnosis [facility] [address] [place] [id number] [place] [address] Jun, [place] [address] [place] [id number] [place] [address] May, Anxiety F41.9 [facility] [address] [place] [id number] [place] [address] May, Polyneuropathy G62.9 ; Anxiety F41.9 and Hypertension, benign I10 [facility] [id number] [place] [address] Apr, [facility] [address] [place] [id number] [place] [address] Apr, Anxiety F41.9 [facility] [address] [place] [id number] [place] [address] March, [facility] [address] [place] [id number] [place] [address] March, Anxiety F41.9 [facility] [address] [place] [id number] [place] [address] March, Anxiety F41.9 [facility] [address] [place] [id number] [place] [address] Feb, Chronic obstructive pulmonary disease, unspecified COPD type J44.9 [facility] [address] [place] [id number] [place] [address] Feb, [facility] [address] [place] [id number] [place] [address] Feb, [facility] [address] [place] [id number] [place] [address] Feb, Anxiety F41.9 [facility] [address] [place] [id number] [place] [address] Jan, Anxiety F41.9 [facility] [address] [place] [id number] [place] [address] Dec, Anxiety F41.9 [facility] [address] [place] [id number] [place] [address] Dec, [facility] [address] [place] [id number] [place] [address] Nov, BMI 50.0-59.9, adult Z68.43 ; Other chronic pain G89.29 ; Anxiety F41.9 and Vagina, candidiasis B37.3 [facility] [address] [place] [id number] [place] [address] Nov, Anxiety F41.9 [facility] [address] [place] [id number] [place] [address] Nov, Acute nasopharyngitis J00 and BMI 50.0-59.9, adult Z68.43 [facility] [address] [place] [id number] [place] [address] Nov, [facility] [id number] [place] [address] Oct, Anxiety F41.9 [facility] [address] [place] [id number] [place] [address] Oct, [facility] [address] [place] [id number] [place] [address] Sep, Anxiety F41.9 [facility] [address] [address] Sep, [facility] [address] [place] [id number] [place] [address] Sep, Anxiety F41.9 [facility] [address] [place] [id number] [place] [address] Aug, Primary insomnia F51.01 [facility] [address] [address] Aug, [facility] [address] [place] [id number] [place] [address] Aug, Anxiety F41.9 [facility] [address] [place] [id number] [place] [address] Jul, Primary insomnia F51.01 [facility] [address] [place] [id number] [place] [address] Jul, [facility] [address] [place] [id number] [place] [address] Jul, Strep throat J02.0 [facility] [address] [place] [id number] [place] [address] Jul, Anxiety F41.9 [facility] [address] [place] [id number] [place] [address] Jun, Primary insomnia F51.01 ; Mood disorder F39 and Polyneuropathy G62.9 [facility] [address] [place] [id number] [place] [address] Jun, Anxiety F41.9 and Other chronic pain G89.29 [facility] [id number] [place] [address] May, Chronic obstructive pulmonary disease, unspecified COPD type J44.9 [facility] [id number] [place] [address] May, Anxiety F41.9 and Other chronic pain G89.29 [facility] [address] [place] [id number] [place] [address] Apr, Anxiety F41.9 and Other chronic pain G89.29 [facility] [address] [place] [id number] [place] [address] March, Morbid obesity due to excess calories E66.01 [facility] [address] [place] [address] Feb, Morbid obesity due to excess calories E66.01 and SOB (shortness of breath) R06.02 [facility] [address], [place] [address] Feb, [facility] [address] [place] [id number] [place] [address] Jan, [facility] [id number] [place] [address] Jan, [facility] [id number] [place] [address] Jan, Morbid obesity due to excess calories E66.01 [facility] [address], [place] [address] Jan, [facility] [address] [place] [id number] [place] [address] Dec, [facility] [address], [place] [address] Dec, [facility] [address] [id number] [place] [address] Nov, [facility] [id number] [place] [address] Nov, [facility] [address] [place] [id number] [place] [address] Oct, [facility] [address] [place] [id number] [place] [address] Oct, Sore throat J02.9 and Strep throat J02.0 [facility] [address] [place] [id number] [place] [address] Oct, [facility] [address] [place] [id number] [place] [address] Oct, [facility] [id number] [place] [address] Oct, [facility] [address] [id number] [place] [address] Sep, [facility] [id number] [place] [address] Sep, [facility] [id number] [place] [address] Aug, [facility] [id number] [place] [address] Aug, Morbid obesity, unspecified obesity type E66.01 ; Pain in right leg M79.604 ; Pain of left leg M79.605 ; Other chronic pain G89.29 and Low back pain M54.5 [facility] [address] [id number] [place] [address] Aug, [facility] [address] [id number] [place] [address] Aug, [facility] [id number] [place] [address] Jul, [facility] [address], [place] [address] Jul, [facility] [id number] [place] [address] Jun, [facility] [id number] [place] [address] Jun, Anxiety F41.9 ; Chronic obstructive pulmonary disease, unspecified COPD type J44.9 ; Low back pain M54.5 and Other chronic pain G89.29 [facility] [id number] [place] [address] Jun, [facility] [id number] [place] [address] Jun, [facility] [id number] [place] [address] May, Other chronic pain G89.29 ; Pain in left knee M25.562 and Anxiety F41.9 [facility] [id number] [place] [address] May, [facility] [id number] [place] [address] Apr, [facility] [address], [place] [address] March, MARIELENA (obstructive sleep apnea) G47.33 [facility] [id number] [place] [address] Feb, [facility] [id number] [place] [address] Feb, MARIELENA (obstructive sleep apnea) G47.33 and Acute upper respiratory infection, unspecified J06.9 [facility] [address], [place] [address] Feb, [facility] [id number] [place] [address] Jan, Pain in right leg M79.604 ; Pain of left leg M79.605 and Obesity E66.9 [place] [id number] [place] [address] Jan, [place] [id number] [place] [address] Jan, [place] [id number] [place] [address] Jan, COPD exacerbation J44.1 ; 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 ; Resistant hypertension I10 ; Nonischemic cardiomyopathy I42.9 and Anxiety about health F41.8 [place] [id number] [place] [address] Dec, [place] [id number] [place] [address] Dec, Hypertension, benign I10 ; Tachycardia R00.0 ; Anxiety F41.9 and Pain in unspecified knee M25.569 IMMUNIZATIONS No Known Immunizations SOCIAL HISTORY Never Assessed REASON FOR VISIT Controlled Med Refill 02/20 PLAN OF CARE VITAL SIGNS MEDICATIONS Medication Instructions Dosage Frequency Start Date End Date Duration Status Clonazepam 0.5 MG Orally Twice a day 1 tablet 12h May, 28 days Active Kealia 7.5-325 MG Orally every 6 hrs 1 tablet as needed 6h Feb, 28 days Active RESULTS No Results PROCEDURES [...]
--- OUTSIDE RECORDS SUMMARY | 2019-06-16 13:15 | XMS REPORT ---
Author Author ARA ISRAEL Organization [facility] Address [address] [place] [address] Care Team Providers Care Monorail Hooker Name Role Phone ARA ISRAEL Unavailable PROBLEMS Type Condition ICD9-CM Code BVF89-OP Code Onset Dates Condition Status SNOMED Code Problem Other chronic pain G89.29 Active 44146254 Problem Morbid obesity, unspecified obesity type E66.01 Active 832333824 Problem Primary insomnia F51.01 Active 2244249 Problem Mood disorder F39 Active 65086179 Problem Anxiety F41.9 Active 74358930 Problem Morbid obesity due to excess calories E66.01 Active 790477911 Problem Polyneuropathy G62.9 Active 77170970 Problem Chronic obstructive pulmonary disease, unspecified COPD type J44.9 Active 92117845 ALLERGIES No Information SOCIAL HISTORY Never Assessed PLAN OF CARE VITAL SIGNS MEDICATIONS Unknown Medications RESULTS No Results PROCEDURES No Known procedures IMMUNIZATIONS No Known Immunizations MEDICAL (GENERAL) HISTORY Type Description Date Medical History Hx of pneumonia Medical History HTN Medical History chronic pain in knees and back Medical History anxiety Surgical History x2 Surgical History cholecystectomy Surgical History tubal ligation Hospitalization History [facility] P[facility] 01/12/16
--- OUTSIDE RECORDS SUMMARY | 2019-06-16 13:15 | XMS REPORT ---
Author Author ARA ISRAEL Organization [facility] Address [address] [place] [address] Care Team Providers Care Cyber Defense Forensics Analyst Name Role Phone ARA ISRAEL Unavailable PROBLEMS Type Condition ICD9-CM Code BOE94-MG Code Onset Dates Condition Status SNOMED Code Problem Other chronic pain G89.29 Active 40397979 Problem Morbid obesity, unspecified obesity type E66.01 Active 590536329 Problem Primary insomnia F51.01 Active 1716039 Problem Mood disorder F39 Active 12048732 Problem Anxiety F41.9 Active 56807549 Problem Morbid obesity due to excess calories E66.01 Active 037375540 Problem Polyneuropathy G62.9 Active 32735286 Problem Chronic obstructive pulmonary disease, unspecified COPD type J44.9 Active 85858455 ALLERGIES No Information ENCOUNTERS Encounter Location Date Diagnosis [facility] [id number] [place] [address] Apr, [facility] [id number] [place] [address] March, [facility] [id number] [place] [address] March, Anxiety F41.9 [facility] [id number] [place] [address] March, Anxiety F41.9 [facility] [id number] [place] [address] Feb, Chronic obstructive pulmonary disease, unspecified COPD type J44.9 [facility] [id number] [place] [address] Feb, [facility] [id number] [place] [address] Feb, [facility] [id number] [place] [address] Feb, Anxiety F41.9 [facility] [address] [address] Jan, Anxiety F41.9 [facility] [address] [address] Dec, Anxiety F41.9 [facility] [address] [address] Dec, [facility] [address] [address] Nov, BMI 50.0-59.9, adult Z68.43 ; Other chronic pain G89.29 ; Anxiety F41.9 and Vagina, candidiasis B37.3 [facility] [address] [address] Nov, Anxiety F41.9 [facility] [id number] [place] [address] Nov, Acute nasopharyngitis J00 and BMI 50.0-59.9, adult Z68.43 [facility] [id number] [place] [address] Nov, [facility] [id number] [place] [address] Oct, Anxiety F41.9 [facility] [id number] [place] [address] Oct, [facility] [address] [address] Sep, Anxiety F41.9 [facility] [id number] [place] [address] Sep, [facility] [address] [address] Sep, Anxiety F41.9 [facility] [id number] [place] [address] Aug, Primary insomnia F51.01 [facility] [id number] [place] [address] Aug, [facility] [id number] [place] [address] Aug, Anxiety F41.9 [facility] [id number] [place] [address] Jul, Primary insomnia F51.01 [facility] [address] [address] Jul, [facility] [id number] [place] [address] Jul, Strep throat J02.0 [facility] [id number] [place] [address] Jul, Anxiety F41.9 [facility] [id number] [place] [address] Jun, Primary insomnia F51.01 ; Mood disorder F39 and Polyneuropathy G62.9 [facility] [id number] [place] [address] Jun, Anxiety F41.9 and Other chronic pain G89.29 [facility] [id number] [place] [address] May, Chronic obstructive pulmonary disease, unspecified COPD type J44.9 [facility] [id number] [place] [address] May, Anxiety F41.9 and Other chronic pain G89.29 [facility] [id number] [place] [address] Apr, Anxiety F41.9 and Other chronic pain G89.29 [facility] [id number] [place] [address] March, Morbid obesity due to excess calories E66.01 [facility] [id number] [place] [address] Feb, Morbid obesity due to excess calories E66.01 and SOB (shortness of breath) R06.02 [facility] [id number] [place] [address] Feb, [facility] [id number] [place] [address] Jan, [facility] [id number] [place] [address] Jan, [facility] [id number] [place] [address] Jan, Morbid obesity due to excess calories E66.01 [facility] [id number] [place] [address] Jan, [facility] [id number] [place] [address] Dec, [facility] [id number] [place] [address] Dec, [facility] [address] [address] Nov, [facility] [id number] [place] [address] Nov, [facility] [address] [address] Oct, [facility] [address] [address] Oct, Sore throat J02.9 and Strep throat J02.0 [facility] [address] [address] Oct, [facility] [address] [address] Oct, [facility] [id number] [place] [address] Oct, [facility] [address] [address] Sep, [facility] [id number] [place] [address] Sep, [facility] [id number] [place] [address] Aug, [facility] [id number] [place] [address] Aug, Morbid obesity, unspecified obesity type E66.01 ; Pain in right leg M79.604 ; Pain of left leg M79.605 ; Other chronic pain G89.29 and Low back pain M54.5 [facility] [address] [address] Aug, [facility] [id number] [place] [address] Aug, [facility] [address] [address] Jul, [facility] [address] [address] Jul, [facility] [address] [address] Jun, [facility] [address] [address] Jun, Anxiety F41.9 ; Chronic obstructive pulmonary disease, unspecified COPD type J44.9 ; Low back pain M54.5 and Other chronic pain G89.29 [facility] [address] [address] Jun, [facility] [address] [address] Jun, [facility] [id number] [place] [address] May, Other chronic pain G89.29 ; Pain in left knee M25.562 and Anxiety F41.9 [facility] [id number] [place] [address] May, [facility] [id number] [place] [address] Apr, [address] [id number] [place] [address] March, MARIELENA (obstructive sleep apnea) G47.33 [facility] [id number] [place] [address] Feb, [facility] [id number] [place] [address] Feb, MARIELENA (obstructive sleep apnea) G47.33 and Acute upper respiratory infection, unspecified J06.9 [facility] [id number] [place] [address] Feb, [facility] [id number] [place] [address] Jan, Pain in right leg M79.604 ; Pain of left leg M79.605 and Obesity E66.9 [facility] [address] [address] Jan, [address] [facility] [id number] [place] [address] Jan, [address] [id number] [place] [address] Jan, COPD exacerbation J44.1 ; 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 ; Resistant hypertension I10 ; Nonischemic cardiomyopathy I42.9 and Anxiety about health F41.8 [facility] [address] [facility] [id number] [place] [address] Dec, [facility] [address] [facility] [id number] [address] Dec, Hypertension, benign I10 ; Tachycardia R00.0 ; Anxiety F41.9 and Pain in unspecified knee M25.569 IMMUNIZATIONS No Known Immunizations SOCIAL HISTORY Never Assessed REASON FOR VISIT Controlled Med Refill 11/02/17 PLAN OF CARE VITAL SIGNS MEDICATIONS Medication Instructions Dosage Frequency Start Date End Date Duration Status Alleman 7.5-325 MG Orally every 6 hrs 1 [...]
--- OUTSIDE RECORDS SUMMARY | 2019-06-16 13:15 | XMS REPORT ---
Author ARA Gonzales Organization [employer] Address Unknown Phone Unavailable Care Team Providers Care Adviser Sales Name Role Phone ARA ISRAEL CP Unavailable Allergies, Adverse Reactions, Alerts Substance Reaction Event Type N.K.D.A. Info Not Available Non Drug Allergy Problems Problem Type Condition Code Onset Dates Condition Status Assessment Pain in left knee M25.562 Active Assessment Anxiety F41.9 Active Assessment Other chronic pain G89.29 Active Medications Medication Code System Code Instructions Start Date End Date Status Dosage Hydrochlorothiazide [facility] 95785268616 25 MG Once a day 1 tablet Metoprolol Tartrate [facility] [address]-88 50 mg Orally Twice a day 1 tablet Symbicort [facility] [address]-90 160-4.5 MCG/ACT Inhalation Twice a day January 20, 2016 2 puffs Cetirizine HCl [facility] [address]-56 10 mg Orally Once a day March 06, 2016 Dec 13, 2016 1 tablet as needed Spiriva HandiHaler [facility] [address]-99 18 MCG Inhalation Once a day January 20, 2016 1 capsule Ondansetron [facility] [address]-23 8 MG Orally every 12 hrs February 07, 2016 1 tablet [place] [facility] [address]-26 7.5-325 MG Orally every 6 hrs February 07, 2016 1 tablet as needed Clonazepam [facility] [address]-41 0.5 MG Orally Once a day June 16, 2016 1 tablet Lisinopril [facility] [address]-05 20 mg Once a day 2 tablets Procedures Procedure Coding System Code Date Office Visit, Est Pt., Level 3 CPT-4 86550 June 16, 2016 Vital Signs Date/Time: June 16, 2016 Cardiac Monitoring Heart Rate 90 bpm Weight 370 lbs Height 66 in BMI 59.71 Index Blood Pressure Diastolic 80 mmHg Blood Pressure Systolic 140 mmHg Results No Known Results Summary Purpose [employer] Submission
--- OUTSIDE RECORDS SUMMARY | 2019-06-16 13:15 | XMS REPORT ---
Author Author ARA ISRAEL Organization [facility] Address [address] [place] [address] Care Team Providers Care Lead Network Engineer Name Role Phone LINDYARA Unavailable PROBLEMS Type Condition ICD9-CM Code ZTF09-MW Code Onset Dates Condition Status SNOMED Code Problem Other chronic pain G89.29 Active 41002753 Problem Morbid obesity, unspecified obesity type E66.01 Active 114991255 Problem Primary insomnia F51.01 Active 5283763 Problem Mood disorder F39 Active 49117491 Problem Anxiety F41.9 Active 79818140 Problem Morbid obesity due to excess calories E66.01 Active 976093155 Problem Polyneuropathy G62.9 Active 59694791 Problem Chronic obstructive pulmonary disease, unspecified COPD type J44.9 Active 06867788 ALLERGIES No Information SOCIAL HISTORY Never Assessed PLAN OF CARE VITAL SIGNS MEDICATIONS Medication Instructions Dosage Frequency Start Date End Date Duration Status Clonazepam 0.5 MG Orally Once a day 1 tablet 24h May, 28 days Active RESULTS No Results PROCEDURES No Known procedures IMMUNIZATIONS No Known Immunizations MEDICAL (GENERAL) HISTORY Type Description Date Medical History Hx of pneumonia Medical History HTN Medical History chronic pain in knees and back Medical History anxiety Surgical History x2 Surgical History cholecystectomy Surgical History tubal ligation Hospitalization History [facility] Pneumonia 01/12/16
--- OUTSIDE RECORDS SUMMARY | 2019-06-16 13:15 | XMS REPORT ---
Author ARA Gonzales Organization [employer] Address Unknown Phone Unavailable Care Team Providers Care Sales And In Home Delivery Specialist Name Role Phone ARA ISRAEL CP Unavailable Allergies No Known Allergies Problems No Known Problems Medications No Known Medications Results No Known Results Summary Purpose [employer] Submission
--- OUTSIDE RECORDS SUMMARY | 2019-06-16 13:15 | XMS REPORT ---
Author Author ARA ISRAEL Organization [employer] Address Unknown Phone Unavailable Care Team Providers Care Lemon Picker Name Role Phone ARA ISRAEL CP Unavailable Allergies No Known Allergies Problems Problem Type Condition Code Onset Dates Condition Status Problem Other chronic pain G89.29 Active Problem Morbid obesity, unspecified obesity type E66.01 Active Medications Medication Code System Code Instructions Start Date End Date Status Dosage [facility] [address]-09 7.5-325 MG Orally every 6 hrs February 07, 2016 Oct 20, 2016 1 tablet as needed Results No Known Results Summary Purpose [employer] Submission
--- OUTSIDE RECORDS SUMMARY | 2019-06-16 13:15 | XMS REPORT ---
Author Author ARA ISRAEL Organization [facility] Address [address] [place] [address] Care Team Providers Care Gasoline Engine Inspector Name Role Phone ARA ISRAEL Unavailable PROBLEMS Type Condition ICD9-CM Code GCL77-UL Code Onset Dates Condition Status SNOMED Code Problem Other chronic pain G89.29 Active 67816502 Problem Morbid obesity, unspecified obesity type E66.01 Active 934995283 Problem Primary insomnia F51.01 Active 6993452 Problem Mood disorder F39 Active 03424078 Problem Anxiety F41.9 Active 72249997 Problem Morbid obesity due to excess calories E66.01 Active 387787223 Problem Polyneuropathy G62.9 Active 06554921 Problem Chronic obstructive pulmonary disease, unspecified COPD type J44.9 Active 83382662 ALLERGIES No Information ENCOUNTERS Encounter Location Date Diagnosis [facility] [id number] [place] [address] May, [facility] [id number] [place] [address] Apr, [facility] [id number] [place] [address] Apr, Anxiety F41.9 [facility] [id number] [place] [address] March, [facility] [id number] [place] [address] March, Anxiety F41.9 [facility] [id number] [place] [address] March, Anxiety F41.9 [facility] [id number] [place] [address] Feb, Chronic obstructive pulmonary disease, unspecified COPD type J44.9 [facility] [id number] [place] [address] Feb, [facility] [address] [address] Feb, [facility] [id number] [place] [address] Feb, Anxiety F41.9 [facility] [address] [address] Jan, Anxiety F41.9 [facility] [address] [address] Dec, Anxiety F41.9 [facility] [address] [address] Dec, [facility] [address] [address] Nov, BMI 50.0-59.9, adult Z68.43 ; Other chronic pain G89.29 ; Anxiety F41.9 and Vagina, candidiasis B37.3 [facility] [address] [address] Nov, Anxiety F41.9 [facility] [id number] [place] [address] Nov, Acute nasopharyngitis J00 and BMI 50.0-59.9, adult Z68.43 [facility] [id number] [place] [address] Nov, [facility] [id number] [place] [address] Oct, Anxiety F41.9 [facility] [id number] [place] [address] Oct, [facility] [address] [address] Sep, Anxiety F41.9 [facility] [id number] [place] [address] Sep, [facility] [id number] [place] [address] Sep, Anxiety F41.9 [facility] [id number] [place] [address] Aug, Primary insomnia F51.01 [facility] [address] [address] Aug, [facility] [address] [address] Aug, Anxiety F41.9 [facility] [id number] [place] [address] Jul, Primary insomnia F51.01 [facility] [address] [address] Jul, [facility] [id number] [place] [address] Jul, Strep throat J02.0 [facility] [id number] [place] [address] Jul, Anxiety F41.9 [facility] [id number] [place] [address] Jun, Primary insomnia F51.01 ; Mood disorder F39 and Polyneuropathy G62.9 [facility] [id number] [place] [address] Jun, Anxiety F41.9 and Other chronic pain G89.29 [facility] [id number] [place] [address] May, Chronic obstructive pulmonary disease, unspecified COPD type J44.9 [facility] [id number] [place] [address] May, Anxiety F41.9 and Other chronic pain G89.29 [facility] [id number] [place] [address] Apr, Anxiety F41.9 and Other chronic pain G89.29 [facility] [id number] [place] [address] March, Morbid obesity due to excess calories E66.01 [facility] [id number] [place] [address] Feb, Morbid obesity due to excess calories E66.01 and SOB (shortness of breath) R06.02 [facility] [id number] [place] [address] Feb, [facility] [id number] [place] [address] Jan, [facility] [id number] [place] [address] Jan, [facility] [id number] [place] [address] Jan, Morbid obesity due to excess calories E66.01 [facility] [id number] [place] [address] Jan, [facility] [address] [address] Dec, [facility] [address] [place] [address] Dec, [facility] [address] [address] Nov, [facility] [id number] [place] [address] Nov, [facility] [address] [address] Oct, [facility] [id number] [address] Oct, Sore throat J02.9 and Strep throat J02.0 [facility] [id number] [address] Oct, [facility] [address] [place] [address] Oct, [facility] [id number] [place] [address] Oct, [facility] [id number] [place] [address] Sep, [facility] [id number] [place] [address] Sep, [facility] [id number] [place] [address] Aug, [facility] [id number] [place] [address] Aug, Morbid obesity, unspecified obesity type E66.01 ; Pain in right leg M79.604 ; Pain of left leg M79.605 ; Other chronic pain G89.29 and Low back pain M54.5 [facility] [address] [address] Aug, [facility] [address] [place] [address] Aug, [facility] [address] [address] Jul, [facility] [id number] [place] [address] Jul, [facility] [address] [address] Jun, [facility] [address] [address] Jun, Anxiety F41.9 ; Chronic obstructive pulmonary disease, unspecified COPD type J44.9 ; Low back pain M54.5 and Other chronic pain G89.29 [facility] [id number] [place] [address] Jun, [facility] [id number] [place] [address] Jun, [facility] [address] [address] May, Other chronic pain G89.29 ; Pain in left knee M25.562 and Anxiety F41.9 [place] [address] [address] May, [place] [id number] [place] [address] Apr, [place] [address] [address] March, MARIELENA (obstructive sleep apnea) G47.33 [place] [id number] [place] [address] Feb, [place] [id number] [place] [address] Feb, MARIELENA (obstructive sleep apnea) G47.33 and Acute upper respiratory infection, unspecified J06.9 [place] [id number] [place] [address] Feb, [facility] [id number] [place] [address] Jan, Pain in right leg M79.604 ; Pain of left leg M79.605 and Obesity E66.9 [facility] [id number] [place] [address] Jan, [place] [id number] [place] [address] Jan, [place] [address] [facility] [id number] [address] Jan, COPD exacerbation J44.1 ; 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 ; Resistant hypertension I10 ; Nonischemic cardiomyopathy I42.9 and Anxiety about health F41.8 [facility] [address] [facility] [id number] [address] Dec, [facility] [id number] [address] Dec, Hypertension, benign I10 ; Tachycardia R00.0 ; Anxiety F41.9 and Pain in unspecified knee M25.569 IMMUNIZATIONS No Known Immunizations SOCIAL HISTORY Never Assessed REASON FOR VISIT Controlled Med Refill 01/10/18 PLAN OF CARE VITAL SIGNS MEDICATIONS Medication Instructions Dosage Frequency Start Date End Date Duration Status Clonazepam 0.5 MG Orally Twice a day 1 tablet 12h May, 12 days Active RESULTS No Results PROCEDURES No Known procedures INSTRUCTIONS MEDICATIONS ADMINISTERED No Known Medications MEDICAL (GENERAL) HISTORY Type Description Date Medical History Hx of pneumonia Medical History HTN Medical History chronic pain in knees and back Medical History anxiety Surgical History x2 Surgical History cholecystectomy Surgical History tubal ligation Hospitalization History [facility] Pneumonia 01/12/16
--- OUTSIDE RECORDS SUMMARY | 2019-06-16 13:15 | XMS REPORT ---
Author Author ARA ISRAEL Organization [facility] Address [address] [place] [address] Care Team Providers Care Dictating Machine Transcriber Name Role Phone ARA ISRAEL Unavailable PROBLEMS Type Condition ICD9-CM Code IXS78-OF Code Onset Dates Condition Status SNOMED Code Problem Other chronic pain G89.29 Active 53575460 Problem Morbid obesity, unspecified obesity type E66.01 Active 318607349 Problem Primary insomnia F51.01 Active 3892064 Problem Mood disorder F39 Active 00055128 Problem Anxiety F41.9 Active 54566746 Problem Morbid obesity due to excess calories E66.01 Active 246690115 Problem Polyneuropathy G62.9 Active 47590783 Problem Chronic obstructive pulmonary disease, unspecified COPD type J44.9 Active 80679181 ALLERGIES No Known Allergies ENCOUNTERS Encounter Location Date Diagnosis [facility] [id number] [place] [address] Feb, [facility] [id number] [place] [address] Feb, [facility] [id number] [place] [address] Feb, Anxiety F41.9 [facility] [id number] [place] [address] Jan, Anxiety F41.9 [facility] [id number] [place] [address] Dec, Anxiety F41.9 [facility] [id number] [place] [address] Dec, [facility] [id number] [place] [address] Nov, BMI 50.0-59.9, adult Z68.43 ; Other chronic pain G89.29 ; Anxiety F41.9 and Vagina, candidiasis B37.3 [facility] [address] [address] Nov, Anxiety F41.9 [facility] [address] [address] Nov, Acute nasopharyngitis J00 and BMI 50.0-59.9, adult Z68.43 [facility] [address] [address] Nov, [facility] [address] [address] Oct, Anxiety F41.9 [facility] [address] [address] Oct, [facility] [address] [address] Sep, Anxiety F41.9 [facility] [address] [address] Sep, [facility] [address] [address] Sep, Anxiety F41.9 [facility] [address] [address] Aug, Primary insomnia F51.01 [facility] [address] [address] Aug, [facility] [address] [address] Aug, Anxiety F41.9 [facility] [address] [address] Jul, Primary insomnia F51.01 [facility] [address] [address] Jul, [place] [id number] [place] [address] Jul, 2017 Strep throat J02.0 [place] [address] [address] 06 Jul, 2017 Anxiety F41.9 [place] [address] [address] Jun, Primary insomnia F51.01 ; Mood disorder F39 and Polyneuropathy G62.9 [place] [address] [address] Jun, Anxiety F41.9 and Other chronic pain G89.29 [place] [address] [address] May, Chronic obstructive pulmonary disease, unspecified COPD type J44.9 [place] [address] [address] May, Anxiety F41.9 and Other chronic pain G89.29 [place] [id number] [place] [address] Apr, Anxiety F41.9 and Other chronic pain G89.29 [place] [id number] [place] [address] March, Morbid obesity due to excess calories E66.01 [place] [id number] [place] [address] Feb, Morbid obesity due to excess calories E66.01 and SOB (shortness of breath) R06.02 [place] [address] [address] Feb, [place] [id number] [place] [address] Jan, [place] [address] [address] Jan, [facility] [address] [facility] [id number] [address] Jan, Morbid obesity due to excess calories E66.01 [facility] [address] [facility] [id number] [place] [address] Jan, [facility] [address] [address] Dec, [facility] [address] [facility] [id number] [place] [address] Dec, [facility] [address] [facility] [id number] [place] [address] Nov, [facility] [id number] [place] [address] Nov, [facility] [id number] [place] [address] Oct, [facility] [address] [address] Oct, Sore throat J02.9 and Strep throat J02.0 [facility] [address] [address] Oct, [facility] [address] [address] Oct, [facility] [address] [address] Oct, [facility] [address] [address] Sep, [facility] [address] [address] Sep, [facility] [id number] [address] Aug, [facility] [address] [address] Aug, Morbid obesity, unspecified obesity type E66.01 ; Pain in right leg M79.604 ; Pain of left leg M79.605 ; Other chronic pain G89.29 and Low back pain M54.5 [facility] [id number] [address] Aug, [facility] [id number] [place] [address] Aug, [facility] [id number] [place] [address] Jul, [facility] [id number] [place] [address] Jul, [facility] [id number] [place] [address] Jun, [facility] [id number] [place] [address] Jun, Anxiety F41.9 ; Chronic obstructive pulmonary disease, unspecified COPD type J44.9 ; Low back pain M54.5 and Other chronic pain G89.29 [facility] [id number] [place] [address] Jun, [facility] [id number] [place] [address] Jun, [facility] [id number] [place] [address] May, Other chronic pain G89.29 ; Pain in left knee M25.562 and Anxiety F41.9 [facility] [id number] [place] [address] May, [facility] [id number] [place] [address] Apr, [facility] [id number] [place] [address] March, MARIELENA (obstructive sleep apnea) G47.33 [place] [id number] [place] [address] Feb, [place] [id number] [place] [address] Feb, MARIELENA (obstructive sleep apnea) G47.33 and Acute upper respiratory infection, unspecified J06.9 [place] [address] [address] Feb, [place] [address] [address] Jan, Pain in right leg M79.604 ; Pain of left leg M79.605 and Obesity E66.9 [place] [address] [address] Jan, [place] [address] [address] Jan, [place] [address] [address] Jan, COPD exacerbation J44.1 ; 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 ; Resistant hypertension I10 ; Nonischemic cardiomyopathy I42.9 and Anxiety about health F41.8 [place] [id number] [place] [address] Dec, [address] [address] Dec, Hypertension, benign I10 ; Tachycardia R00.0 ; Anxiety F41.9 and Pain in unspecified knee M25.569 IMMUNIZATIONS No Known Immunizations SOCIAL HISTORY Never Assessed REASON FOR VISIT oxygen recertification, PT is also complaining of pain in her hands and fingers- Torrey MA PLAN OF CARE VITAL SIGNS Height 66 in 2017-07-12 Weight 352.8 lbs 2017-07-12 Temperature 98.1 degrees Fahrenheit 2017-07-12 Heart Rate 82 bpm 2017-07-12 Respiratory Rate 20 2017-07-12 Oximetry on room air:97 % 2017-07-12 BMI 56.94 kg/m2 2017-07-12 Blood pressure systolic 132 mmHg 2017-07-12 Blood pressure diastolic 78 mmHg 2017-07-12 MEDICATIONS Medication Instructions Dosage Frequency Start Date End Date Duration Status Amitriptyline HCl 25 MG Orally Once a day 1 tablet 24h 24 Jun, 2017 30 day(s) Active Cetirizine HCl 10 mg Orally Once a day 1 tablet as needed 24h 18 Feb, 2016 30 day(s) Active [place] 7.5-325 MG Orally every 6 hrs 1 tablet as needed 6h Jun, Jul, 28 days Active Metformin HCl 500 mg Orally Twice a day 1 tablet with meals 12h 30 Active Symbicort 160-4.5 MCG/ACT Inhalation Twice a day 2 puffs 12h Jan, Active Clonazepam 0.5 MG Orally Twice a day 1 tablet 12h May, 28 days Active Hydrochlorothiazide 25 MG TAKE ONE TABLET BY MOUTH ONCE DAILY 90 Active Metoprolol Tartrate Active Lisinopril 20 mg 2 tablets 24h 90 Active Spiriva HandiHaler 18 MCG INHALE CONTENTS OF ONE CAPSULE BY MOUTH ONCE DAILY (TWO INHALATIONS PER ONE CAPSULE) 30 Active RESULTS No Results PROCEDURES Procedure Date Ordered Result Body Site MEASURE BLOOD OXYGEN LEVEL Jul 12, 2017 INSTRUCTIONS MEDICATIONS ADMINISTERED No Known Medications MEDICAL (GENERAL) HISTORY Type Description Date Medical History Hx of pneumonia Medical History HTN Medical History chronic pain in knees and back Medical History anxiety Surgical History x2 Surgical History cholecystectomy Surgical History tubal ligation Hospitalization History [facility] Pneum[facility] 01/12/16
--- OUTSIDE RECORDS SUMMARY | 2019-06-16 13:15 | XMS REPORT ---
Author Author ARA ISRAEL [facility] Address [address] [place] [address] Care Team Providers Care Sales Promotion Representative Name Role Phone ARA ISRAEL Unavailable PROBLEMS Type Condition ICD9-CM Code [id number] Code Onset Dates Condition Status SNOMED Code Problem Chronic obstructive pulmonary disease, unspecified COPD type J44.9 Active 05935108 Problem Anxiety F41.9 Active 41441321 Problem Other chronic pain G89.29 Active 55703203 Problem Morbid obesity due to excess calories E66.01 Active 106875090 Problem Morbid obesity, unspecified obesity type E66.01 Active 301154275 ALLERGIES Unknown Allergies SOCIAL HISTORY No smoking Hx information available PLAN OF CARE VITAL SIGNS MEDICATIONS Unknown Medications RESULTS No Results PROCEDURES No Known procedures IMMUNIZATIONS No Known Immunizations
--- OUTSIDE RECORDS SUMMARY | 2019-06-16 13:15 | XMS REPORT ---
Author ARA Gonzales Organization [employer] Address Unknown Phone Unavailable Care Team Providers Care Community Advocate Name Role Phone ARA ISRAEL CP Unavailable Allergies No Known Allergies Problems Problem Type Condition Code Onset Dates Condition Status Problem Other chronic pain G89.29 Active Problem Morbid obesity, unspecified obesity type E66.01 Active Medications No Known Medications Results No Known Results Summary Purpose [employer] Submission
--- OUTSIDE RECORDS SUMMARY | 2019-06-16 13:15 | XMS REPORT ---
Author Author ARA ISRAEL [facility] Address [facility] [place] [address] Care Team Providers Care Application Development Intern Name Role Phone ARA ISRAEL Unavailable PROBLEMS Unknown Problems ALLERGIES Unknown Allergies SOCIAL HISTORY No smoking Hx information available PLAN OF CARE VITAL SIGNS MEDICATIONS Unknown Medications RESULTS No Results PROCEDURES No Known procedures IMMUNIZATIONS No Known Immunizations
--- OUTSIDE RECORDS SUMMARY | 2019-06-16 13:16 | XMS REPORT ---
Author ARA Gonzales [facility] eClinicalWorks Address Unknown Phone Unavailable Care Team Providers Care Clinical Engineering Director Name Role Phone ARA ISRAEL CP Unavailable Allergies, Adverse Reactions, Alerts Substance Reaction Event Type N.K.D.A. Info Not Available Non Drug Allergy Problems Problem Type Condition Code Onset Dates Condition Status Problem Other chronic pain G89.29 Active Assessment Morbid obesity, unspecified obesity type E66.01 Active Problem Morbid obesity, unspecified obesity type E66.01 Active Assessment Other chronic pain G89.29 Active Assessment Low back pain M54.5 Active Assessment Pain in right leg M79.604 Active Assessment Pain of left leg M79.605 Active Medications Medication Code System Code Instructions Start Date End Date Status Dosage Spiriva HandiHaler [facility] [address]-21 18 MCG Inhalation Once a day January 20, 2016 1 capsule Hydrochlorothiazide [facility] 34446068469 25 MG Once a day 1 tablet Clonazepam [facility] [address]-13 0.5 MG Orally Once a day June 16, 2016 1 tablet Saxenda [facility] [address]-70 18 MG/3ML Subcutaneous Once a week January 20, 2016 April 19, 2016 3.0mg; start 0.6mg sc once per week, then increase by 0.6mg to goal dose of 3.0mg per week Cetirizine HCl [facility] [address]-29 10 mg Orally Once a day March 06, 2016 Dec 13, 2016 1 tablet as needed Symbicort [facility] [address]-19 160-4.5 MCG/ACT Inhalation Twice a day January 20, 2016 2 puffs Lisinopril [facility] [address]-26 20 mg Once a day 2 tablets Milan [facility] [address]-00 7.5-325 MG Orally every 6 hrs February 07, 2016 1 tablet as needed Saxenda [facility] [address]-26 18 MG/3ML Subcutaneous Once a day Sep 18, 2016 3 mg Procedures Procedure Coding System Code Date Office Visit, Est Pt., Level 3 CPT-4 80811 Sep 18, 2016 Vital Signs Date/Time: Sep 18, 2016 Cardiac Monitoring Heart Rate 78 bpm Weight 367.4 lbs Height 66 in BMI 59.29 Index Blood Pressure Diastolic 76 mmHg Blood Pressure Systolic 134 mmHg Results No Known Results Summary Purpose eClinicalWorks Submission
--- OUTSIDE RECORDS SUMMARY | 2019-06-16 13:16 | XMS REPORT ---
Author Author JENNIFFER NÚÑEZ Organization [facility] Address [address] [place] [address] Care Team Providers Care Radio Message Router Name Role Phone JENNIFFER NÚÑEZ Unavailable PROBLEMS Type Condition ICD9-CM Code HOH39-EL Code Onset Dates Condition Status SNOMED Code Problem Chronic obstructive pulmonary disease, unspecified COPD type J44.9 Active 80737116 Problem Anxiety F41.9 Active 78849873 Problem Other chronic pain G89.29 Active 04926216 Problem Morbid obesity due to excess calories E66.01 Active 722980602 Problem Morbid obesity, unspecified obesity type E66.01 Active 312627680 ALLERGIES Substance Reaction Event Type Date Status N.K.D.A. Unknown Non Drug Allergy Oct, Unknown SOCIAL HISTORY No smoking Hx information available PLAN OF CARE Activity Details Follow Up prn Reason: VITAL SIGNS Height 66 in 2016-11-08 Weight 354.0 lbs 2016-11-08 Temperature 97.6 degrees Fahrenheit 2016-11-08 Heart Rate 106 bpm 2016-11-08 Respiratory Rate 24 2016-11-08 BMI 57.13 kg/m2 2016-11-08 Blood pressure systolic 138 mmHg 2016-11-08 Blood pressure diastolic 80 mmHg 2016-11-08 MEDICATIONS Medication Instructions Dosage Frequency Start Date End Date Duration Status Saxenda 18 MG/3ML Subcutaneous Once a day 3 mg 24h Aug, Active Amoxicillin 500 MG Orally every 12 hrs 1 tablet 12h Oct, Oct, 10 day(s) Active Clonazepam 0.5 MG Orally Once a day 1 tablet 24h May, Active Lisinopril 20 mg 2 tablets 24h Active Cetirizine HCl 10 mg Orally Once a day 1 tablet as needed 24h Feb, 30 day(s) Active Elmont 7.5-325 MG Orally every 6 hrs 1 tablet as needed 6h Jan, 28 days Active Hydrochlorothiazide 25 MG 1 tablet 24h 30 Active Spiriva HandiHaler 18 MCG Inhalation Once a day 1 capsule 24h Jan, Active Symbicort 160-4.5 MCG/ACT Inhalation Twice a day 2 puffs 12h Jan, Active RESULTS Name Result Date Reference Range STREP A (IN HOUSE) 2016-11-08 STREP A positive Control + Lot # [id number] Exp date june 05 PROCEDURES Procedure Date Ordered Related Diagnosis Body Site STREP A ASSAY W/OPTIC Nov 08, 2016 Office Visit, Est Pt., Level 3 Nov 08, 2016 IMMUNIZATIONS No Known Immunizations
--- OUTSIDE RECORDS SUMMARY | 2019-06-16 13:16 | XMS REPORT ---
Author Author ARA ISRAEL Organization [facility] Address [address] [place] [address] Care Team Providers Care Last Turner Name Role Phone ARA ISRAEL Unavailable PROBLEMS Type Condition ICD9-CM Code XAS43-FK Code Onset Dates Condition Status SNOMED Code Problem Other chronic pain G89.29 Active 69685287 Problem Morbid obesity, unspecified obesity type E66.01 Active 577998530 Problem Primary insomnia F51.01 Active 8250802 Problem Mood disorder F39 Active 28413803 Problem Anxiety F41.9 Active 02394276 Problem Morbid obesity due to excess calories E66.01 Active 472946236 Problem Polyneuropathy G62.9 Active 14075911 Problem Chronic obstructive pulmonary disease, unspecified COPD type J44.9 Active 69663478 ALLERGIES No Information ENCOUNTERS Encounter Location Date Diagnosis [facility] [id number] [place] [address] Apr, [facility] [address] [address] March, Anxiety F41.9 [facility] [id number] [place] [address] Feb, Chronic obstructive pulmonary disease, unspecified COPD type J44.9 [facility] [id number] [place] [address] Feb, [facility] [id number] [place] [address] Feb, [facility] [id number] [place] [address] Feb, Anxiety F41.9 [facility] [id number] [place] [address] Jan, Anxiety F41.9 [facility] [id number] [place] [address] Dec, Anxiety F41.9 [facility] [address] [address] Dec, [facility] [address] [address] Nov, BMI 50.0-59.9, adult Z68.43 ; Other chronic pain G89.29 ; Anxiety F41.9 and Vagina, candidiasis B37.3 [facility] [address] [address] Nov, Anxiety F41.9 [facility] [id number] [place] [address] Nov, Acute nasopharyngitis J00 and BMI 50.0-59.9, adult Z68.43 [facility] [address] [address] Nov, [facility] [address] [address] Oct, Anxiety F41.9 [facility] [id number] [place] [address] Oct, [facility] [id number] [place] [address] Sep, Anxiety F41.9 [facility] [id number] [place] [address] Sep, [facility] [address] [address] Sep, Anxiety F41.9 [facility] [id number] [place] [address] Aug, Primary insomnia F51.01 [facility] [address] [address] Aug, [facility] [id number] [place] [address] Aug, Anxiety F41.9 [facility] [id number] [place] [address] Jul, Primary insomnia F51.01 [facility] [id number] [place] [address] Jul, [facility] [id number] [place] [address] 08 Jul, 2017 Strep throat J02.0 [address] [address] Jul, Anxiety F41.9 [address] [id number] [place] [address] Jun, Primary insomnia F51.01 ; Mood disorder F39 and Polyneuropathy G62.9 [facility] [id number] [place] [address] Jun, Anxiety F41.9 and Other chronic pain G89.29 [facility] [id number] [place] [address] May, Chronic obstructive pulmonary disease, unspecified COPD type J44.9 [facility] [id number] [place] [address] May, Anxiety F41.9 and Other chronic pain G89.29 [facility] [id number] [place] [address] Apr, Anxiety F41.9 and Other chronic pain G89.29 [facility] [id number] [place] [address] March, Morbid obesity due to excess calories E66.01 [facility] [id number] [place] [address] Feb, Morbid obesity due to excess calories E66.01 and SOB (shortness of breath) R06.02 [facility] [address] [address] Feb, [facility] [id number] [place] [address] Jan, [facility] [id number] [place] [address] Jan, [facility] [id number] [place] [address] Jan, Morbid obesity due to excess calories E66.01 [facility] [id number] [place] [address] Jan, [facility] [id number] [place] [address] Dec, [facility] [id number] [place] [address] Dec, [facility] [id number] [place] [address] Nov, [facility] [id number] [place] [address] Nov, [facility] [address] [address] Oct, [facility] [address] [place] [address] Oct, Sore throat J02.9 and Strep throat J02.0 [facility] [address] [address] Oct, [facility] [id number] [place] [address] Oct, [facility] [address] [address] Oct, [facility] [address] [place] [address] Sep, [facility] [address] [place] [address] Sep, [facility] [id number] [address] Aug, [facility] [id number] [place] [address] Aug, Morbid obesity, unspecified obesity type E66.01 ; Pain in right leg M79.604 ; Pain of left leg M79.605 ; Other chronic pain G89.29 and Low back pain M54.5 [facility] [address] [address] Aug, [facility] [id number] [place] [address] Aug, [facility] [id number] [place] [address] Jul, [facility] [address] [address] Jul, [facility] [id number] [address] Jun, [facility] [address] [place] [address] Jun, Anxiety F41.9 ; Chronic obstructive pulmonary disease, unspecified COPD type J44.9 ; Low back pain M54.5 and Other chronic pain G89.29 [facility] [address] [address] Jun, [facility] [address] [address] Jun, [facility] [address], [place] [address] May, Other chronic pain G89.29 ; Pain in left knee M25.562 and Anxiety F41.9 [address] [id number] [place] [address] May, [address] [id number] [place] [address] Apr, [address] [id number] [place] [address] March, MARIELENA (obstructive sleep apnea) G47.[address] [address] Feb, [address] [address] Feb, MARIELENA (obstructive sleep apnea) G47.33 and Acute upper respiratory infection, unspecified J06.[address] [address] Feb, [address] [address] Jan, Pain in right leg M79.604 ; Pain of left leg M79.605 and Obesity E66.9 [id number] [place] [address] Jan, [id number] [place] [address] Jan, [id number] [place] [address] Jan, COPD exacerbation J44.1 ; 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 ; Resistant hypertension I10 ; Nonischemic cardiomyopathy I42.9 and Anxiety about health F41.8 [id number] [place] [address] Dec, [id number] [place] [address] Dec, Hypertension, benign I10 ; Tachycardia R00.0 ; Anxiety F41.9 and Pain in unspecified knee M25.569 IMMUNIZATIONS No Known Immunizations SOCIAL HISTORY Never Assessed REASON FOR VISIT Controlled Med Refill 08/23/17 PLAN OF CARE VITAL SIGNS MEDICATIONS Medication [...] Surgical History tubal ligation Hospitalization History Via [facility] Pneumonia 01/12/16
--- OUTSIDE RECORDS SUMMARY | 2019-06-16 13:16 | XMS REPORT ---
Author Author RAA ISRAEL Organization [facility] Address [address] [place] [address] Care Team Providers Care Otr Van Cdl Truck Driver Name Role Phone ARA ISRAEL Unavailable PROBLEMS Type Condition ICD9-CM Code VZO14-YC Code Onset Dates Condition Status SNOMED Code Problem Other chronic pain G89.29 Active 84952162 Problem Morbid obesity, unspecified obesity type E66.01 Active 265230649 Problem Primary insomnia F51.01 Active 4394410 Problem Mood disorder F39 Active 40484928 Problem Anxiety F41.9 Active 80827751 Problem Morbid obesity due to excess calories E66.01 Active 957043296 Problem Polyneuropathy G62.9 Active 92684393 Problem Chronic obstructive pulmonary disease, unspecified COPD type J44.9 Active 00909669 ALLERGIES No Information ENCOUNTERS Encounter Location Date Diagnosis [facility] [id number] [place] [address] May, [facility] [id number] [place] [address] March, [facility] [id number] [place] [address] March, Anxiety F41.9 [facility] [id number] [place] [address] March, Anxiety F41.9 [facility] [id number] [place] [address] Feb, Chronic obstructive pulmonary disease, unspecified COPD type J44.9 [facility] [id number] [place] [address] Feb, [facility] [id number] [place] [address] Feb, [facility] [id number] [place] [address] Feb, Anxiety F41.9 [facility] [address] [address] Jan, Anxiety F41.9 [facility] [address] [address] Dec, Anxiety F41.9 [facility] [address] [address] Dec, [facility] [address] [address] Nov, BMI 50.0-59.9, adult Z68.43 ; Other chronic pain G89.29 ; Anxiety F41.9 and Vagina, candidiasis B37.3 [facility] [address] [address] Nov, Anxiety F41.9 [facility] [id number] [place] [address] Nov, Acute nasopharyngitis J00 and BMI 50.0-59.9, adult Z68.43 [facility] [id number] [place] [address] Nov, [facility] [id number] [place] [address] Oct, Anxiety F41.9 [facility] [id number] [place] [address] Oct, [facility] [address] [address] Sep, Anxiety F41.9 [facility] [id number] [place] [address] Sep, [facility] [address] [address] Sep, Anxiety F41.9 [facility] [id number] [place] [address] Aug, Primary insomnia F51.01 [facility] [id number] [place] [address] Aug, [facility] [id number] [place] [address] Aug, Anxiety F41.9 [facility] [id number] [place] [address] Jul, Primary insomnia F51.01 [facility] [address] [address] Jul, [facility] [id number] [place] [address] Jul, Strep throat J02.0 [facility] [id number] [place] [address] Jul, Anxiety F41.9 [facility] [id number] [place] [address] Jun, Primary insomnia F51.01 ; Mood disorder F39 and Polyneuropathy G62.9 [facility] [id number] [place] [address] Jun, Anxiety F41.9 and Other chronic pain G89.29 [facility] [id number] [place] [address] May, Chronic obstructive pulmonary disease, unspecified COPD type J44.9 [facility] [id number] [place] [address] May, Anxiety F41.9 and Other chronic pain G89.29 [facility] [id number] [place] [address] Apr, Anxiety F41.9 and Other chronic pain G89.29 [facility] [id number] [place] [address] March, Morbid obesity due to excess calories E66.01 [facility] [id number] [place] [address] Feb, Morbid obesity due to excess calories E66.01 and SOB (shortness of breath) R06.02 [facility] [id number] [place] [address] Feb, [facility] [id number] [place] [address] Jan, [facility] [id number] [place] [address] Jan, [facility] [id number] [place] [address] Jan, Morbid obesity due to excess calories E66.01 [facility] [id number] [place] [address] Jan, [facility] [address] [place] [address] Dec, [facility] [id number] [place] [address] Dec, [facility] [address] [address] Nov, [facility] [id number] [place] [address] Nov, [facility] [address] [address] Oct, [facility] [address] [address] Oct, Sore throat J02.9 and Strep throat J02.0 [facility] [address] [address] Oct, [facility] [address] [address] Oct, [facility] [id number] [place] [address] Oct, [facility] [address] [address] Sep, [facility] [id number] [place] [address] Sep, [facility] [address] [place] [address] Aug, [facility] [id number] [place] [address] Aug, Morbid obesity, unspecified obesity type E66.01 ; Pain in right leg M79.604 ; Pain of left leg M79.605 ; Other chronic pain G89.29 and Low back pain M54.5 [facility] [address] [address] Aug, [facility] [id number] [place] [address] Aug, [facility] [address] [address] Jul, [facility] [address] [address] Jul, [facility] [address] [address] Jun, [facility] [address] [address] Jun, Anxiety F41.9 ; Chronic obstructive pulmonary disease, unspecified COPD type J44.9 ; Low back pain M54.5 and Other chronic pain G89.29 [facility] [address] [address] Jun, [facility] [address] [address] Jun, [facility] [id number] [place] [address] May, Other chronic pain G89.29 ; Pain in left knee M25.562 and Anxiety F41.9 [facility] [id number] [place] [address] May, [facility] [id number] [place] [address] Apr, [facility] [id number] [place] [address] March, MARIELENA (obstructive sleep apnea) G47.33 [facility] [id number] [place] [address] Feb, [facility] [id number] [place] [address] Feb, MARIELENA (obstructive sleep apnea) G47.33 and Acute upper respiratory infection, unspecified J06.9 [facility] [id number] [place] [address] Feb, [facility] [id number] [place] [address] Jan, Pain in right leg M79.604 ; Pain of left leg M79.605 and Obesity E66.9 [facility] [address] [address] Jan, [facility] [id number] [place] [address] Jan, [facility] [id number] [place] [address] Jan, COPD exacerbation J44.1 ; 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 ; Resistant hypertension I10 ; Nonischemic cardiomyopathy I42.9 and Anxiety about health F41.8 [facility] [address] [facility] [id number] [place] [address] Dec, [facility] [address] [facility] [id number] [address] Dec, Hypertension, benign I10 ; Tachycardia R00.0 ; Anxiety F41.9 and Pain in unspecified knee M25.569 IMMUNIZATIONS No Known Immunizations SOCIAL HISTORY Never Assessed REASON FOR VISIT Controlled Med Refill 11/29/17 PLAN OF CARE VITAL SIGNS MEDICATIONS Medication Instructions Dosage Frequency Start Date End Date Duration Status [place] 7.5-325 MG Orally every 6 hrs 1 tablet as needed 6h Nov, 28 days Active RESULTS No Results PROCEDURES [...]
--- OUTSIDE RECORDS SUMMARY | 2019-06-16 13:16 | XMS REPORT ---
Author ARA Gonzales Organization [employer] Address Unknown Phone Unavailable Care Team Providers Care Dry Cleaner Name Role Phone ARA ISRAEL CP Unavailable Allergies No Known Allergies Problems No Known Problems Medications Medication Code System Code Instructions Start Date End Date Status Dosage Lisinopril [facility] [address]-93 20 mg TAKE TWO TABLETS BY MOUTH ONCE DAILY Results No Known Results Summary Purpose [employer] Submission
--- OUTSIDE RECORDS SUMMARY | 2019-06-16 13:16 | XMS REPORT ---
Author Author ARA ISRAEL [facility] Address [address] [place] [address] Care Team Providers Care Operations Clerk Name Role Phone ARA ISRAEL Unavailable PROBLEMS Type Condition ICD9-CM Code WPV32-AF Code Onset Dates Condition Status SNOMED Code Problem Other chronic pain G89.29 Active 41035326 Problem Morbid obesity, unspecified obesity type E66.01 Active 463025412 Problem Primary insomnia F51.01 Active 3581068 Problem Mood disorder F39 Active 94144618 Problem Anxiety F41.9 Active 75104747 Problem Morbid obesity due to excess calories E66.01 Active 104745989 Problem Polyneuropathy G62.9 Active 82280058 Problem Chronic obstructive pulmonary disease, unspecified COPD type J44.9 Active 22434780 ALLERGIES Unknown Allergies SOCIAL HISTORY No smoking Hx information available PLAN OF CARE VITAL SIGNS MEDICATIONS Medication Instructions Dosage Frequency Start Date End Date Duration Status Clonazepam 0.5 MG Orally Once a day 1 tablet 24h May, 28 days Active RESULTS No Results PROCEDURES No Known procedures IMMUNIZATIONS No Known Immunizations
--- OUTSIDE RECORDS SUMMARY | 2019-06-16 13:16 | XMS REPORT ---
Author Author ARA ISRAEL Organization [facility] Address [address] [place] [address] Care Team Providers Care Buyer Internship Name Role Phone LINDY ARA Unavailable PROBLEMS Type Condition ICD9-CM Code [id number] Code Onset Dates Condition Status SNOMED Code Problem Other chronic pain G89.29 Active 86030510 Problem Morbid obesity, unspecified obesity type E66.01 Active 902319945 Problem Primary insomnia F51.01 Active 2590139 Problem Mood disorder F39 Active 07021552 Problem Anxiety F41.9 Active 60413574 Problem Morbid obesity due to excess calories E66.01 Active 290679253 Problem Polyneuropathy G62.9 Active 99604659 Problem Chronic obstructive pulmonary disease, unspecified COPD type J44.9 Active 40626952 ALLERGIES No Information SOCIAL HISTORY Never Assessed PLAN OF CARE VITAL SIGNS MEDICATIONS Medication Instructions Dosage Frequency Start Date End Date Duration Status [place] 7.5-325 MG Orally every 6 hrs 1 tablet as needed 6h Dec, 28 days Active RESULTS No Results PROCEDURES No Known procedures IMMUNIZATIONS No Known Immunizations MEDICAL (GENERAL) HISTORY Type Description Date Medical History Hx of pneumonia Medical History HTN Medical History chronic pain in knees and back Medical History anxiety Surgical History x2 Surgical History cholecystectomy Surgical History tubal ligation Hospitalization History [facility] Pneumonia 01/12/16
--- OUTSIDE RECORDS SUMMARY | 2019-06-16 13:16 | XMS REPORT ---
Author ARA Gonzales Organization [employer] Address Unknown Phone Unavailable Care Team Providers Care Looping Machine Operator Name Role Phone ARA ISRAEL CP Unavailable Allergies No Known Allergies Problems No Known Problems Medications No Known Medications Results No Known Results Summary Purpose [employer] Submission
--- OUTSIDE RECORDS SUMMARY | 2019-06-16 13:17 | XMS REPORT ---
Author Author ARA ISRAEL Organization [facility] Address [address] [place] [address] Care Team Providers Care Process Automation Engineer Name Role Phone ARA ISRAEL Unavailable PROBLEMS Type Condition ICD9-CM Code [id number] Code Onset Dates Condition Status SNOMED Code Problem Chronic obstructive pulmonary disease, unspecified COPD type J44.9 Active 75730234 Problem Anxiety F41.9 Active 02144244 Problem Other chronic pain G89.29 Active 90170025 Problem Morbid obesity due to excess calories E66.01 Active 106365603 Problem Morbid obesity, unspecified obesity type E66.01 Active 206251768 ALLERGIES Unknown Allergies SOCIAL HISTORY No smoking Hx information available PLAN OF CARE VITAL SIGNS MEDICATIONS Medication Instructions Dosage Frequency Start Date End Date Duration Status [place] 7.5-325 MG Orally every 6 hrs 1 tablet as needed 6h Oct, 28 days Active RESULTS No Results PROCEDURES No Known procedures IMMUNIZATIONS No Known Immunizations
--- OUTSIDE RECORDS SUMMARY | 2019-06-16 13:17 | XMS REPORT ---
Author ARA Gonzales Organization [employer] Address Unknown Phone Unavailable Care Team Providers Care Grocery Store Manager Name Role Phone ARA ISRAEL CP Unavailable Allergies No Known Allergies Problems No Known Problems Medications Medication Code System Code Instructions Start Date End Date Status Dosage [facility] [address]-95 5-325 MG Orally every 6 hrs February 07, 2016 1 tablet as needed Results No Known Results Summary Purpose [employer] Submission
--- OUTSIDE RECORDS SUMMARY | 2019-06-16 13:17 | XMS REPORT ---
Author Author ARA ISRAEL Organization [facility] Address [address] [place] [address] Care Team Providers Care Structural Steel Painter Name Role Phone ARA ISRAEL Unavailable PROBLEMS Type Condition ICD9-CM Code GVM82-SW Code Onset Dates Condition Status SNOMED Code Problem Other chronic pain G89.29 Active 21361255 Problem Morbid obesity, unspecified obesity type E66.01 Active 557560843 Problem Primary insomnia F51.01 Active 4059752 Problem Mood disorder F39 Active 13924667 Problem Anxiety F41.9 Active 16293583 Problem Morbid obesity due to excess calories E66.01 Active 418086322 Problem Polyneuropathy G62.9 Active 70038031 Problem Chronic obstructive pulmonary disease, unspecified COPD type J44.9 Active 44798785 ALLERGIES No Known Allergies ENCOUNTERS Encounter Location Date Diagnosis [facility] [id number] [place] [address] May, [facility] [id number] [place] [address] March, [facility] [id number] [place] [address] March, Anxiety F41.9 [facility] [id number] [place] [address] March, Anxiety F41.9 [facility] [id number] [place] [address] Feb, Chronic obstructive pulmonary disease, unspecified COPD type J44.9 [facility] [id number] [place] [address] Feb, [facility] [id number] [place] [address] Feb, [facility] [id number] [place] [address] Feb, Anxiety F41.9 [facility] [address] [address] Jan, Anxiety F41.9 [facility] [address] [address] Dec, Anxiety F41.9 [facility] [address] [address] Dec, [facility] [address] [address] Nov, BMI 50.0-59.9, adult Z68.43 ; Other chronic pain G89.29 ; Anxiety F41.9 and Vagina, candidiasis B37.3 [facility] [address] [address] Nov, Anxiety F41.9 [facility] [id number] [place] [address] Nov, Acute nasopharyngitis J00 and BMI 50.0-59.9, adult Z68.43 [facility] [id number] [place] [address] Nov, [facility] [id number] [place] [address] Oct, Anxiety F41.9 [facility] [id number] [place] [address] Oct, [facility] [address] [address] Sep, Anxiety F41.9 [facility] [id number] [place] [address] Sep, [facility] [address] [address] Sep, Anxiety F41.9 [facility] [id number] [place] [address] Aug, Primary insomnia F51.01 [facility] [id number] [place] [address] Aug, [facility] [id number] [place] [address] Aug, Anxiety F41.9 [facility] [id number] [place] [address] Jul, Primary insomnia F51.01 [facility] [address] [address] Jul, [facility] [id number] [place] [address] Jul, Strep throat J02.0 [facility] [address] [address] Jul, Anxiety F41.9 [facility] [id number] [place] [address] Jun, Primary insomnia F51.01 ; Mood disorder F39 and Polyneuropathy G62.9 [facility] [id number] [place] [address] Jun, Anxiety F41.9 and Other chronic pain G89.29 [facility] [id number] [place] [address] May, Chronic obstructive pulmonary disease, unspecified COPD type J44.9 [facility] [id number] [place] [address] May, Anxiety F41.9 and Other chronic pain G89.29 [facility] [id number] [place] [address] Apr, Anxiety F41.9 and Other chronic pain G89.29 [facility] [address] [place] [address] March, Morbid obesity due to excess calories E66.01 [facility] [address] [place] [address] Feb, Morbid obesity due to excess calories E66.01 and SOB (shortness of breath) R06.02 [facility] [address] [address] Feb, [facility] [id number] [place] [address] Jan, [facility] [id number] [place] [address] Jan, [facility] [id number] [place] [address] Jan, Morbid obesity due to excess calories E66.01 [facility] [address] [place] [address] Jan, [facility] [address] [address] Dec, [facility] [address] [place] [address] Dec, [facility] [address] [address] Nov, [facility] [address] [address] Nov, [facility] [address] [address] Oct, [facility] [address], [place] [address] Oct, Sore throat J02.9 and Strep throat J02.0 [facility] [address], [place] [address] Oct, [facility] [address] [address] Oct, [facility] [id number] [place] [address] Oct, [facility] [address], [place] [address] Sep, [facility] [id number] [place] [address] Sep, [facility] [id number] [place] [address] Aug, [facility] [id number] [place] [address] Aug, Morbid obesity, unspecified obesity type E66.01 ; Pain in right leg M79.604 ; Pain of left leg M79.605 ; Other chronic pain G89.29 and Low back pain M54.5 [facility] [id number] [address] Aug, [facility] [id number] [place] [address] Aug, [facility] [address], [place] [address] Jul, [facility] [address], [place] [address] Jul, [facility] [address] [address] Jun, [facility] [address] [place] [address] Jun, Anxiety F41.9 ; Chronic obstructive pulmonary disease, unspecified COPD type J44.9 ; Low back pain M54.5 and Other chronic pain G89.29 [facility] [address], [place] [address] Jun, [facility] [address] [place] [address] Jun, [facility] [id number] [place] [address] May, Other chronic pain G89.29 ; Pain in left knee M25.562 and Anxiety F41.9 [place] [id number] [place] [address] May, [facility] [id number] [place] [address] Apr, [place] [id number] [place] [address] March, MARIELENA (obstructive sleep apnea) G47.33 [place] [id number] [place] [address] Feb, [place] [id number] [place] [address] Feb, MARIELENA (obstructive sleep apnea) G47.33 and Acute upper respiratory infection, unspecified J06.9 [place] [id number] [place] [address] Feb, [facility] [id number] [place] [address] Jan, Pain in right leg M79.604 ; Pain of left leg M79.605 and Obesity E66.9 [facility] [id number] [place] [address] Jan, [place] [id number] [place] [address] Jan, [place] [id number] [place] [address] Jan, COPD exacerbation J44.1 ; 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 ; Resistant hypertension I10 ; Nonischemic cardiomyopathy I42.9 and Anxiety about health F41.8 [facility] [address] [facility] [id number] [place] [address] Dec, [facility] [address] [facility] [id number] [place] [address] Dec, Hypertension, benign I10 ; Tachycardia R00.0 ; Anxiety F41.9 and Pain in unspecified knee M25.569 IMMUNIZATIONS No Known Immunizations SOCIAL HISTORY Never Assessed REASON FOR VISIT neuropathy- JjournotRN, Due for Contract, Ameritox, PHQ2, DAST. Will get after s eeing PCP. , needs a refill of spiriva, metformin, klonopin, &Symbicort., wants a breast exam., pt states she is having a foul odor from vagina/ itching at times. Also has a few bumps on the outer area of vagina. Needs annual female visit. Availability 1 month out. PLAN OF CARE VITAL SIGNS Height 66 in 2017-12-13 Weight 350.2 lbs 2017-12-13 Temperature 98.7 degrees Fahrenheit 2017-12-13 Heart Rate 92 bpm 2017-12-13 Respiratory Rate 24 2017-12-13 BMI 56.52 kg/m2 2017-12-13 Blood pressure systolic 134 mmHg 2017-12-13 Blood pressure diastolic 70 mmHg 2017-12-13 MEDICATIONS Medication Instructions Dosage Frequency Start Date End Date Duration Status Symbicort 160-4.5 MCG/ACT Inhalation Twice a day 2 puffs 12h Jan, Active Lisinopril 20 mg 2 tablets 24h 90 Active Spiriva HandiHaler 18 MCG INHALE CONTENTS OF ONE CAPSULE BY MOUTH ONCE DAILY (TWO INHALATIONS PER ONE CAPSULE) 30 Active Cetirizine HCl 10 MG TAKE ONE TABLET BY MOUTH ONCE DAILY NEEDED 30 Active Diflucan 150 MG Orally Once a day 1 tablet 24h Nov, Nov, 03 days Active Oxygen 3 L by nasal cannula Active Metoprolol Tartrate 50 MG Orally Once a day PRN 1 tablet Active Metformin HCl 500 mg Orally Twice a day 1 tablet with meals 12h 30 Active Amitriptyline HCl 25 MG Orally Once a day 1 tablet 24h 30 Active Clonazepam 0.5 MG Orally Twice a day 1 tablet 12h May, 28 days Active Hydrochlorothiazide 25 MG TAKE ONE TABLET BY MOUTH ONCE DAILY 90 Active Paroxetine HCl 20 MG Orally Once a day 1 tablet in the morning 24h Nov, 30 day(s) Active Laurel 7.5-325 MG Orally every 6 hrs 1 tablet as needed 6h Nov, 28 days Active RESULTS Name Result Date Reference Range AMERITOX 2017-12-13 PROCEDURES Procedure Date Ordered Result Body Site No Charge Dec 13, 2017 INSTRUCTIONS MEDICATIONS ADMINISTERED No Known Medications MEDICAL (GENERAL) HISTORY Type Description Date Medical History Hx of pneumonia Medical History HTN Medical History chronic pain in knees and back Medical History anxiety Surgical History x2 Surgical History cholecystectomy Surgical History tubal ligation Hospitalization History [facility] Pneumonia 01/12/16
--- OUTSIDE RECORDS SUMMARY | 2019-06-16 13:17 | XMS REPORT ---
Author Author ARA ISRAEL Organization [facility] Address [address] [place] [address] Care Team Providers Care Instructional Services Specialist Name Role Phone ARA ISRAEL Unavailable PROBLEMS Type Condition ICD9-CM Code LGM21-AQ Code Onset Dates Condition Status SNOMED Code Problem Other chronic pain G89.29 Active 89255259 Problem Morbid obesity, unspecified obesity type E66.01 Active 557652971 Problem Primary insomnia F51.01 Active 0732577 Problem Mood disorder F39 Active 77887092 Problem Anxiety F41.9 Active 67662239 Problem Morbid obesity due to excess calories E66.01 Active 915890149 Problem Polyneuropathy G62.9 Active 72373019 Problem Chronic obstructive pulmonary disease, unspecified COPD type J44.9 Active 05774179 ALLERGIES No Information ENCOUNTERS Encounter Location Date Diagnosis [facility] [id number] [place] [address] May, [facility] [id number] [place] [address] March, [facility] [id number] [place] [address] March, Anxiety F41.9 [facility] [id number] [place] [address] March, Anxiety F41.9 [facility] [id number] [place] [address] Feb, Chronic obstructive pulmonary disease, unspecified COPD type J44.9 [facility] [id number] [place] [address] Feb, [facility] [id number] [place] [address] Feb, [facility] [id number] [place] [address] Feb, Anxiety F41.9 [facility] [address] [address] Jan, Anxiety F41.9 [facility] [address] [address] Dec, Anxiety F41.9 [facility] [address] [address] Dec, [facility] [address] [address] Nov, BMI 50.0-59.9, adult Z68.43 ; Other chronic pain G89.29 ; Anxiety F41.9 and Vagina, candidiasis B37.3 [facility] [address] [address] Nov, Anxiety F41.9 [facility] [id number] [place] [address] Nov, Acute nasopharyngitis J00 and BMI 50.0-59.9, adult Z68.43 [facility] [id number] [place] [address] Nov, [facility] [id number] [place] [address] Oct, Anxiety F41.9 [facility] [id number] [place] [address] Oct, [facility] [address] [address] Sep, Anxiety F41.9 [facility] [id number] [place] [address] Sep, [facility] [address] [address] Sep, Anxiety F41.9 [facility] [id number] [place] [address] Aug, Primary insomnia F51.01 [facility] [id number] [place] [address] Aug, [facility] [id number] [place] [address] Aug, Anxiety F41.9 [facility] [id number] [place] [address] Jul, Primary insomnia F51.01 [facility] [address] [address] Jul, [facility] [id number] [place] [address] Jul, Strep throat J02.0 [facility] [id number] [place] [address] Jul, Anxiety F41.9 [facility] [id number] [place] [address] Jun, Primary insomnia F51.01 ; Mood disorder F39 and Polyneuropathy G62.9 [facility] [id number] [place] [address] Jun, Anxiety F41.9 and Other chronic pain G89.29 [facility] [id number] [place] [address] May, Chronic obstructive pulmonary disease, unspecified COPD type J44.9 [facility] [id number] [place] [address] May, Anxiety F41.9 and Other chronic pain G89.29 [facility] [id number] [place] [address] Apr, Anxiety F41.9 and Other chronic pain G89.29 [facility] [id number] [place] [address] March, Morbid obesity due to excess calories E66.01 [facility] [id number] [place] [address] Feb, Morbid obesity due to excess calories E66.01 and SOB (shortness of breath) R06.02 [facility] [address] [place] [address] Feb, [facility] [id number] [place] [address] Jan, [facility] [id number] [place] [address] Jan, [facility] [id number] [place] [address] Jan, Morbid obesity due to excess calories E66.01 [facility] [id number] [place] [address] Jan, [facility] [id number] [place] [address] Dec, [facility] [id number] [place] [address] Dec, [facility] [address] [address] Nov, [facility] [id number] [place] [address] Nov, [facility] [address] [address] Oct, [facility] [address] [address] Oct, Sore throat J02.9 and Strep throat J02.0 [facility] [address] [address] Oct, [facility] [address] [address] Oct, [facility] [id number] [place] [address] Oct, [facility] [address] [address] Sep, [facility] [id number] [place] [address] Sep, [facility] [id number] [place] [address] Aug, [facility] [id number] [place] [address] Aug, Morbid obesity, unspecified obesity type E66.01 ; Pain in right leg M79.604 ; Pain of left leg M79.605 ; Other chronic pain G89.29 and Low back pain M54.5 [facility] [address] [address] Aug, [facility] [id number] [place] [address] Aug, [facility] [address] [address] Jul, [facility] [address] [address] Jul, [facility] [address] [address] Jun, [facility] [address] [address] Jun, Anxiety F41.9 ; Chronic obstructive pulmonary disease, unspecified COPD type J44.9 ; Low back pain M54.5 and Other chronic pain G89.29 [facility] [address] [address] Jun, [facility] [address] [address] Jun, [facility] [id number] [place] [address] May, Other chronic pain G89.29 ; Pain in left knee M25.562 and Anxiety F41.9 [place] [id number] [place] [address] May, [facility] [id number] [place] [address] Apr, [place] [id number] [place] [address] March, MARIELENA (obstructive sleep apnea) G47.33 [place] [id number] [place] [address] Feb, [facility] [id number] [place] [address] Feb, MARIELENA (obstructive sleep apnea) G47.33 and Acute upper respiratory infection, unspecified J06.9 [facility] [id number] [place] [address] Feb, [facility] [id number] [place] [address] Jan, Pain in right leg M79.604 ; Pain of left leg M79.605 and Obesity E66.9 [facility] [address] [address] Jan, [place] [id number] [place] [address] Jan, [facility] [id number] [place] [address] Jan, COPD exacerbation J44.1 ; 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
--- OUTSIDE RECORDS SUMMARY | 2019-06-16 13:17 | XMS REPORT ---
Author Author ARA ISRAEL Organization [facility] Address [address] [place] [address] Care Team Providers Care Automotive Professional Name Role Phone ARA ISRAEL Unavailable PROBLEMS Type Condition ICD9-CM Code [id number] Code Onset Dates Condition Status SNOMED Code Problem Other chronic pain G89.29 Active 21505691 Problem Morbid obesity, unspecified obesity type E66.01 Active 238286504 Problem Primary insomnia F51.01 Active 1401681 Problem Mood disorder F39 Active 87468159 Problem Anxiety F41.9 Active 12273559 Problem Morbid obesity due to excess calories E66.01 Active 888917141 Problem Polyneuropathy G62.9 Active 56201958 Problem Chronic obstructive pulmonary disease, unspecified COPD type J44.9 Active 92511584 ALLERGIES No Information ENCOUNTERS Encounter Location Date Diagnosis [place] [id number] [place] [address] Feb, Chronic obstructive pulmonary disease, unspecified COPD type J44.9 [facility] [id number] [place] [address] Feb, [facility] [id number] [place] [address] Feb, [facility] [id number] [place] [address] Feb, Anxiety F41.9 [facility] [id number] [place] [address] Jan, Anxiety F41.9 [facility] [id number] [place] [address] Dec, Anxiety F41.9 [facility] [id number] [place] [address] Dec, [facility] [id number] [place] [address] Nov, BMI 50.0-59.9, adult Z68.43 ; Other chronic pain G89.29 ; Anxiety F41.9 and Vagina, candidiasis B37.3 [facility] [address] [address] Nov, Anxiety F41.9 [facility] [address] [address] Nov, Acute nasopharyngitis J00 and BMI 50.0-59.9, adult Z68.43 [facility] [address] [address] Nov, [facility] [address] [address] Oct, Anxiety F41.9 [facility] [address] [address] Oct, [facility] [address] [address] Sep, Anxiety F41.9 [facility] [id number] [place] [address] Sep, [facility] [address] [address] Sep, Anxiety F41.9 [facility] [address] [address] Aug, Primary insomnia F51.01 [facility] [address] [address] Aug, [facility] [address] [address] Aug, Anxiety F41.9 [facility] [address] [address] Jul, Primary insomnia F51.01 [place] [id number] [place] [address] Jul, [place] [address] [address] Jul, Strep throat J02.0 [place] [address] [address] Jul, Anxiety F41.9 [place] [address] [address] Jun, Primary insomnia F51.01 ; Mood disorder F39 and Polyneuropathy G62.9 [place] [address] [address] Jun, Anxiety F41.9 and Other chronic pain G89.29 [place] [address] [address] May, Chronic obstructive pulmonary disease, unspecified COPD type J44.9 [place] [address] [address] May, Anxiety F41.9 and Other chronic pain G89.29 [place] [id number] [place] [address] Apr, Anxiety F41.9 and Other chronic pain G89.29 [place] [address] [address] March, Morbid obesity due to excess calories E66.01 [place] [id number] [place] [address] Feb, Morbid obesity due to excess calories E66.01 and SOB (shortness of breath) R06.02 [place] [id number] [place] [address] Feb, [place] [address] [address] Jan, [facility] [id number] [address] Jan, [facility] [address] [address] Jan, Morbid obesity due to excess calories E66.01 [facility] [id number] [address] Jan, [facility] [address] [facility] [id number] [address] Dec, [facility] [id number] [place] [address] Dec, [facility] [address] [address] Nov, [facility] [address] [address] Nov, [facility] [address] [address] Oct, [facility] [address] [address] Oct, Sore throat J02.9 and Strep throat J02.0 [facility] [address] [address] Oct, [facility] [address] [address] Oct, [facility] [id number] [address] Oct, [facility] [address] [address] Sep, [facility] [address] [address] Sep, [facility] [id number] [address] Aug, [facility] [address] [address] Aug, Morbid obesity, unspecified obesity type E66.01 ; Pain in right leg M79.604 ; Pain of left leg M79.605 ; Other chronic pain G89.29 and Low back pain M54.5 [facility] [id number] [place] [address] Aug, [facility] [id number] [place] [address] Aug, [facility] [id number] [place] [address] Jul, [facility] [id number] [place] [address] Jul, [facility] [id number] [place] [address] Jun, [facility] [address] [address] Jun, Anxiety F41.9 ; Chronic obstructive pulmonary disease, unspecified COPD type J44.9 ; Low back pain M54.5 and Other chronic pain G89.29 [facility] [address] [address] Jun, [facility] [address] [address] Jun, [facility] [id number] [address] May, Other chronic pain G89.29 ; Pain in left knee M25.562 and Anxiety F41.9 [facility] [address] [address] May, [facility] [address] [place] [address] Apr, [place] [id number] [place] [address] March, MARIELENA (obstructive sleep apnea) G47.33 [place] [id number] [place] [address] Feb, [place] [id number] [place] [address] Feb, MARIELE[place] (obstructive sleep apnea) G47.33 and Acute upper respiratory infection, unspecified J06.9 [place] [id number] [place] [address] Feb, [place] [id number] [place] [address] Jan, Pain in right leg M79.604 ; Pain of left leg M79.605 and Obesity E66.9 [place] [id number] [place] [address] Jan, [place] [id number] [place] [address] Jan, [place] [id number] [place] [address] Jan, COPD exacerbation J44.1 ; 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 ; Resistant hypertension I10 ; Nonischemic cardiomyopathy I42.9 and Anxiety about health F41.8 [place] [id number] [place] [address] Dec, [place] [id number] [place] [address] Dec, Hypertension, benign I10 ; Tachycardia R00.0 ; Anxiety F41.9 and Pain in unspecified knee M25.569 IMMUNIZATIONS No Known Immunizations SOCIAL HISTORY Never Assessed REASON FOR VISIT Controlled Refill Request PLAN OF CARE VITAL SIGNS MEDICATIONS Medication Instructions Dosage Frequency Start Date End Date Duration Status [place] 7.5-325 MG Orally every 6 hrs 1 tablet as needed 6h Jul, 28 days Active RESULTS No Results PROCEDURES [...]
--- OUTSIDE RECORDS SUMMARY | 2019-06-16 13:18 | XMS REPORT ---
Author Author ARA ISRAEL [facility] Address [address] [place] [address] Care Team Providers Care Hat And Cap Drying Room Attendant Name Role Phone ARA ISRAEL Unavailable PROBLEMS Type Condition ICD9-CM Code LLR27-ON Code Onset Dates Condition Status SNOMED Code Problem Chronic obstructive pulmonary disease, unspecified COPD type J44.9 Active 30418286 Problem Anxiety F41.9 Active 34986240 Problem Other chronic pain G89.29 Active 66146977 Problem Morbid obesity due to excess calories E66.01 Active 729135235 Problem Morbid obesity, unspecified obesity type E66.01 Active 406554270 ALLERGIES Unknown Allergies SOCIAL HISTORY No smoking Hx information available PLAN OF CARE VITAL SIGNS MEDICATIONS Medication Instructions Dosage Frequency Start Date End Date Duration Status Clonazepam 0.5 MG Orally Once a day 1 tablet 24h May, Active RESULTS No Results PROCEDURES No Known procedures IMMUNIZATIONS No Known Immunizations
--- OUTSIDE RECORDS SUMMARY | 2019-06-16 13:18 | XMS REPORT ---
Author ARA Gonzales Organization [employer] Address Unknown Phone Unavailable Care Team Providers Care Roustabout Crew Leader Name Role Phone ARA ISRAEL CP Unavailable Allergies, Adverse Reactions, Alerts Substance Reaction Event Type N.K.D.A. Info Not Available Non Drug Allergy Problems Problem Type Condition Code Onset Dates Condition Status Assessment Chronic obstructive pulmonary disease, unspecified COPD type J44.9 Active Assessment Low back pain M54.5 Active Assessment Anxiety F41.9 Active Assessment Other chronic pain G89.29 Active Medications Medication Code System Code Instructions Start Date End Date Status Dosage Lisinopril [facility] [address]-78 20 mg Once a day 2 tablets [place] [facility] [address]-11 7.5-325 MG Orally every 6 hrs February 07, 2016 1 tablet as needed Spiriva HandiHaler [facility] [address]-62 18 MCG Inhalation Once a day January 20, 2016 1 capsule Hydrochlorothiazide [facility] 03902472579 25 MG Once a day 1 tablet Ondansetron [facility] [address]-77 8 MG Orally every 12 hrs February 07, 2016 1 tablet Symbicort [facility] [address]-47 160-4.5 MCG/ACT Inhalation Twice a day January 20, 2016 2 puffs Cetirizine HCl [facility] [address]-31 10 mg Orally Once a day March 06, 2016 Dec 13, 2016 1 tablet as needed Clonazepam [facility] [address]-21 0.5 MG Orally Once a day June 16, 2016 1 tablet Metoprolol Tartrate [facility] [address]-04 50 mg Orally Twice a day 1 tablet Procedures Procedure Coding System Code Date Office Visit, Est Pt., Level 3 CPT-4 71142 Jul 17, 2016 Vital Signs Date/Time: Jul 17, 2016 Cardiac Monitoring Heart Rate 80 bpm Weight 368 lbs Height 66 in BMI 59.39 Index Blood Pressure Diastolic 80 mmHg Blood Pressure Systolic 136 mmHg Results No Known Results Summary Purpose [employer] Submission
--- OUTSIDE RECORDS SUMMARY | 2019-06-16 13:18 | XMS REPORT ---
Author Author ARA ISRAEL Organization [facility] Address [address] [place] [address] Care Team Providers Care Operations Intern Name Role Phone ARA ISRAEL Unavailable PROBLEMS Type Condition ICD9-CM Code BLE41-LQ Code Onset Dates Condition Status SNOMED Code Problem Other chronic pain G89.29 Active 38985001 Problem Morbid obesity, unspecified obesity type E66.01 Active 510024377 Problem Primary insomnia F51.01 Active 2508409 Problem Mood disorder F39 Active 15072313 Problem Anxiety F41.9 Active 92885134 Problem Morbid obesity due to excess calories E66.01 Active 818899983 Problem Polyneuropathy G62.9 Active 65305913 Problem Chronic obstructive pulmonary disease, unspecified COPD type J44.9 Active 58380354 ALLERGIES No Information ENCOUNTERS Encounter Location Date Diagnosis [facility] [id number] [place] [address] Feb, Chronic obstructive pulmonary disease, unspecified COPD type J44.9 [facility] [id number] [place] [address] Feb, [facility] [id number] [place] [address] Feb, [facility] [id number] [place] [address] Feb, Anxiety F41.9 [facility] [id number] [place] [address] Jan, Anxiety F41.9 [facility] [id number] [place] [address] Dec, Anxiety F41.9 [facility] [id number] [place] [address] Dec, [facility] [id number] [place] [address] Nov, BMI 50.0-59.9, adult Z68.43 ; Other chronic pain G89.29 ; Anxiety F41.9 and Vagina, candidiasis B37.3 [facility] [address] [address] Nov, Anxiety F41.9 [facility] [address] [address] Nov, Acute nasopharyngitis J00 and BMI 50.0-59.9, adult Z68.43 [facility] [address] [address] Nov, [facility] [address] [address] Oct, Anxiety F41.9 [facility] [address] [address] Oct, [facility] [address] [address] Sep, Anxiety F41.9 [facility] [id number] [place] [address] Sep, [facility] [address] [address] Sep, Anxiety F41.9 [facility] [address] [address] Aug, Primary insomnia F51.01 [facility] [address] [address] Aug, [facility] [address] [address] Aug, Anxiety F41.9 [facility] [address] [address] Jul, Primary insomnia F51.01 [place] [id number] [place] [address] Jul, [place] [address] [address] Jul, Strep throat J02.0 [place] [address] [address] Jul, Anxiety F41.9 [place] [address] [address] Jun, Primary insomnia F51.01 ; Mood disorder F39 and Polyneuropathy G62.9 [place] [address] [address] Jun, Anxiety F41.9 and Other chronic pain G89.29 [place] [address] [address] May, Chronic obstructive pulmonary disease, unspecified COPD type J44.9 [place] [address] [address] May, Anxiety F41.9 and Other chronic pain G89.29 [place] [id number] [place] [address] Apr, Anxiety F41.9 and Other chronic pain G89.29 [place] [address] [address] March, Morbid obesity due to excess calories E66.01 [place] [id number] [place] [address] Feb, Morbid obesity due to excess calories E66.01 and SOB (shortness of breath) R06.02 [place] [id number] [place] [address] Feb, [place] [address] [address] Jan, [facility] [id number] [address] Jan, [facility] [address], [place] [address] Jan, Morbid obesity due to excess calories E66.01 [facility] [id number] [address] Jan, [facility] [address] [facility] [id number] [address] Dec, [facility] [address] [place] [address] Dec, [facility] [address], [place] [address] Nov, [facility] [address], [place] [address] Nov, [facility] [address], [place] [address] Oct, [facility] [address], [place] [address] Oct, Sore throat J02.9 and Strep throat J02.0 [facility] [address], [place] [address] Oct, [facility] [address], [place] [address] Oct, [facility] [id number] [address] Oct, [facility] [address], [place] [address] Sep, [facility] [address], [place] [address] Sep, [facility] [id number] [address] Aug, [facility] [address], [place] [address] Aug, Morbid obesity, unspecified obesity type E66.01 ; Pain in right leg M79.604 ; Pain of left leg M79.605 ; Other chronic pain G89.29 and Low back pain M54.5 [facility] [id number] [place] [address] Aug, [facility] [id number] [place] [address] Aug, [facility] [id number] [place] [address] Jul, [facility] [id number] [place] [address] Jul, [facility] [id number] [place] [address] Jun, [facility] [address], [place] [address] Jun, Anxiety F41.9 ; Chronic obstructive pulmonary disease, unspecified COPD type J44.9 ; Low back pain M54.5 and Other chronic pain G89.29 [facility] [address], [place] [address] Jun, [facility] [address], [place] [address] Jun, [facility] [id number] [address] May, Other chronic pain G89.29 ; Pain in left knee M25.562 and Anxiety F41.9 [facility] [address], [place] [address] May, [facility] [address] [place] [address] Apr, [place] [address] [place] [address] March, MARIELENA (obstructive sleep apnea) G47.33 [place] [id number] [place] [address] Feb, [place] [id number] [place] [address] Feb, MARIELENA (obstructive sleep apnea) G47.33 and Acute upper respiratory infection, unspecified J06.9 [place] [id number] [place] [address] Feb, [place] [id number] [place] [address] Jan, Pain in right leg M79.604 ; Pain of left leg M79.605 and Obesity E66.9 [place] [id number] [place] [address] Jan, [place] [id number] [place] [address] Jan, [place] [id number] [place] [address] Jan, COPD exacerbation J44.1 ; 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 ; Resistant hypertension I10 ; Nonischemic cardiomyopathy I42.9 and Anxiety about health F41.8 [place] [id number] [place] [address] Dec, [place] [id number] [place] [address] Dec, Hypertension, benign I10 ; Tachycardia R00.0 ; Anxiety F41.9 and Pain in unspecified knee M25.569 IMMUNIZATIONS No Known Immunizations SOCIAL HISTORY Never Assessed REASON FOR VISIT Medication Refill PLAN OF CARE VITAL SIGNS MEDICATIONS Medication Instructions Dosage Frequency Start Date End Date Duration Status Cetirizine HCl 10 mg Orally Once a day 1 tablet as needed 24h 18 Apr, 2016 6 Gonzales, 2018 30 day(s) Active RESULTS No Results PROCEDURES [...]
--- OUTSIDE RECORDS SUMMARY | 2019-06-16 13:18 | XMS REPORT ---
Author Author ARA ISRAEL Organization [facility] Address [address] [place] [address] Care Team Providers Care Sound Engineer Name Role Phone ARA ISRAEL Unavailable PROBLEMS Type Condition ICD9-CM Code ANA22-YG Code Onset Dates Condition Status SNOMED Code Problem Other chronic pain G89.29 Active 50686773 Problem Morbid obesity, unspecified obesity type E66.01 Active 029749850 Problem Primary insomnia F51.01 Active 0723237 Problem Mood disorder F39 Active 69177421 Problem Anxiety F41.9 Active 10821705 Problem Morbid obesity due to excess calories E66.01 Active 980579020 Problem Polyneuropathy G62.9 Active 93078095 Problem Chronic obstructive pulmonary disease, unspecified COPD type J44.9 Active 33964480 ALLERGIES No Known Allergies SOCIAL HISTORY Never Assessed PLAN OF CARE Activity Details Follow Up 4 Weeks Reason:weight management VITAL SIGNS Height 66 in 2017-02-01 Weight 357.3 lbs 2017-02-01 Temperature 97.8 degrees Fahrenheit 2017-02-01 Heart Rate 74 bpm 2017-02-01 Respiratory Rate 18 2017-02-01 Oximetry activity:92 % 2017-02-01 BMI 57.66 kg/m2 2017-02-01 Blood pressure systolic 120 mmHg 2017-02-01 Blood pressure diastolic 76 mmHg 2017-02-01 MEDICATIONS Medication Instructions Dosage Frequency Start Date End Date Duration Status Symbicort 160-4.5 MCG/ACT Inhalation Twice a day 2 puffs 12h Jan, Active Spiriva HandiHaler 18 MCG Inhalation Once a day 1 capsule 24h Jan, Active Cetirizine HCl 10 mg Orally Once a day 1 tablet as needed 24h Feb, 30 day(s) Active [place] 7.5-325 MG Orally every 6 hrs 1 tablet as needed 6h 24 Dec, 2016 28 days Active Hydrochlorothiazide 25 MG Orally Once a day 1 tablet 24h 90 days Active Lisinopril 20 mg 2 tablets 24h 90 Active Topiramate 25 MG Orally Twice a day 1 tablet 12h 16 Jan, 2017 30 day(s) Active Clonazepam 0.5 MG Orally Once a day 1 tablet 24h 29 May, 2016 28 days Active RESULTS Name Result Date Reference Range [employer] 2017-02-01 PROCEDURES Procedure Date Ordered Result Body Site MEASURE BLOOD OXYGEN LEVEL February 01, 2017 No Charge February 01, 2017 IMMUNIZATIONS No Known Immunizations MEDICAL (GENERAL) HISTORY Type Description Date Medical History Hx of pneumonia Medical History HTN Medical History chronic pain in knees and back Medical History anxiety Surgical History x2 Surgical History cholecystectomy Surgical History tubal ligation Hospitalization History [facility] Pneumonia 01/12/16
--- OUTSIDE RECORDS SUMMARY | 2019-06-16 13:18 | XMS REPORT ---
Author Author ARA ISRAEL Organization [facility] Address [address] [place] [address] Care Team Providers Care Construction Trades Teacher Name Role Phone ARA ISRAEL Unavailable PROBLEMS Type Condition ICD9-CM Code [id number] Code Onset Dates Condition Status SNOMED Code Problem Other chronic pain G89.29 Active 05537450 Problem Morbid obesity, unspecified obesity type E66.01 Active 601335527 Problem Primary insomnia F51.01 Active 6842659 Problem Mood disorder F39 Active 36923318 Problem Anxiety F41.9 Active 34492256 Problem Morbid obesity due to excess calories E66.01 Active 108618801 Problem Polyneuropathy G62.9 Active 32639841 Problem Chronic obstructive pulmonary disease, unspecified COPD type J44.9 Active 43466237 ALLERGIES No Information ENCOUNTERS Encounter Location Date Diagnosis [place] [id number] [place] [address] Feb, Chronic obstructive pulmonary disease, unspecified COPD type J44.9 [facility] [id number] [place] [address] Feb, [facility] [id number] [place] [address] Feb, [facility] [id number] [place] [address] Feb, Anxiety F41.9 [facility] [id number] [place] [address] Jan, Anxiety F41.9 [facility] [id number] [place] [address] Dec, Anxiety F41.9 [facility] [id number] [place] [address] Dec, [facility] [id number] [place] [address] Nov, BMI 50.0-59.9, adult Z68.43 ; Other chronic pain G89.29 ; Anxiety F41.9 and Vagina, candidiasis B37.3 [facility] [address] [address] Nov, Anxiety F41.[address] [facility] [address] [address] Nov, Acute nasopharyngitis J00 and BMI 50.0-59.9, adult Z68.43 [facility] [address] [address] Nov, [facility] [address] [address] Oct, Anxiety F41.9 [facility] [address] [address] Oct, [facility] [address] [address] Sep, Anxiety F41.9 [facility] [id number] [place] [address] Sep, [facility] [address] [address] Sep, Anxiety F41.9 [facility] [address] [address] Aug, Primary insomnia F51.01 [facility] [address] [address] Aug, [facility] [address] [address] Aug, Anxiety F41.9 [facility] [address] [address] Jul, Primary insomnia F51.01 [place] [id number] [place] [address] Jul, [place] [address] [address] Jul, Strep throat J02.0 [place] [address] [address] Jul, Anxiety F41.9 [place] [address] [address] Jun, Primary insomnia F51.01 ; Mood disorder F39 and Polyneuropathy G62.9 [place] [address] [address] Jun, Anxiety F41.9 and Other chronic pain G89.29 [place] [address] [address] May, Chronic obstructive pulmonary disease, unspecified COPD type J44.9 [place] [address] [address] May, Anxiety F41.9 and Other chronic pain G89.29 [place] [id number] [place] [address] Apr, Anxiety F41.9 and Other chronic pain G89.29 [place] [address] [address] March, Morbid obesity due to excess calories E66.01 [place] [id number] [place] [address] Feb, Morbid obesity due to excess calories E66.01 and SOB (shortness of breath) R06.02 [place] [id number] [place] [address] Feb, [place] [address] [address] Jan, [facility] [id number] [address] Jan, [facility] [address] [address] Jan, Morbid obesity due to excess calories E66.01 [facility] [id number] [address] Jan, [facility] [address] [facility] [id number] [address] Dec, [facility] [id number] [place] [address] Dec, [facility] [address] [address] Nov, [facility] [address] [address] Nov, [facility] [address] [address] Oct, [facility] [address] [address] Oct, Sore throat J02.9 and Strep throat J02.0 [facility] [address] [address] Oct, [facility] [address] [address] Oct, [facility] [id number] [address] Oct, [facility] [address] [address] Sep, [facility] [address] [address] Sep, [facility] [id number] [address] Aug, [facility] [address] [address] Aug, Morbid obesity, unspecified obesity type E66.01 ; Pain in right leg M79.604 ; Pain of left leg M79.605 ; Other chronic pain G89.29 and Low back pain M54.5 [facility] [id number] [place] [address] Aug, [facility] [id number] [place] [address] Aug, [facility] [id number] [place] [address] Jul, [facility] [id number] [place] [address] Jul, [facility] [id number] [place] [address] Jun, [facility] [address] [address] Jun, Anxiety F41.9 ; Chronic obstructive pulmonary disease, unspecified COPD type J44.9 ; Low back pain M54.5 and Other chronic pain G89.29 [facility] [address] [address] Jun, [facility] [address] [address] Jun, [facility] [id number] [address] May, Other chronic pain G89.29 ; Pain in left knee M25.562 and Anxiety F41.9 [facility] [address] [address] May, [facility] [address] [place] [address] Apr, [place] [id number] [place] [address] March, MARIELENA (obstructive sleep apnea) G47.33 [place] [id number] [place] [address] Feb, [place] [id number] [place] [address] Feb, MARIELENA (obstructive sleep apnea) G47.33 and Acute upper respiratory infection, unspecified J06.9 [place] [id number] [place] [address] Feb, [place] [id number] [place] [address] Jan, Pain in right leg M79.604 ; Pain of left leg M79.605 and Obesity E66.9 [place] [id number] [place] [address] Jan, [place] [id number] [place] [address] Jan, [place] [id number] [place] [address] Jan, COPD exacerbation J44.1 ; 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
--- OUTSIDE RECORDS SUMMARY | 2019-06-16 13:18 | XMS REPORT ---
Author Author ARA ISRAEL Organization [facility] Address [address] [place] [address] Care Team Providers Care Information Assoc Name Role Phone ARA ISRAEL Unavailable PROBLEMS Type Condition ICD9-CM Code GBM05-JE Code Onset Dates Condition Status SNOMED Code Problem Other chronic pain G89.29 Active 90225882 Problem Morbid obesity, unspecified obesity type E66.01 Active 308110056 Problem Primary insomnia F51.01 Active 8717239 Problem Mood disorder F39 Active 95758556 Problem Anxiety F41.9 Active 16786918 Problem Morbid obesity due to excess calories E66.01 Active 389908876 Problem Polyneuropathy G62.9 Active 50711513 Problem Chronic obstructive pulmonary disease, unspecified COPD type J44.9 Active 87920550 ALLERGIES No Information ENCOUNTERS Encounter Location Date Diagnosis [facility] [id number] [place] [address] Apr, [facility] [id number] [place] [address] March, [facility] [id number] [place] [address] March, Anxiety F41.9 [facility] [id number] [place] [address] March, Anxiety F41.9 [facility] [id number] [place] [address] Feb, Chronic obstructive pulmonary disease, unspecified COPD type J44.9 [facility] [id number] [place] [address] Feb, [facility] [id number] [place] [address] Feb, [facility] [id number] [place] [address] Feb, Anxiety F41.9 [facility] [address] [address] Jan, Anxiety F41.9 [facility] [address] [address] Dec, Anxiety F41.9 [facility] [address] [address] Dec, [facility] [address] [address] Nov, BMI 50.0-59.9, adult Z68.43 ; Other chronic pain G89.29 ; Anxiety F41.9 and Vagina, candidiasis B37.3 [facility] [address] [address] Nov, Anxiety F41.9 [facility] [id number] [place] [address] Nov, Acute nasopharyngitis J00 and BMI 50.0-59.9, adult Z68.43 [facility] [id number] [place] [address] Nov, [facility] [id number] [place] [address] Oct, Anxiety F41.9 [facility] [id number] [place] [address] Oct, [facility] [address] [address] Sep, Anxiety F41.9 [facility] [id number] [place] [address] Sep, [facility] [address] [address] Sep, Anxiety F41.9 [facility] [id number] [place] [address] Aug, Primary insomnia F51.01 [facility] [id number] [place] [address] Aug, [facility] [id number] [place] [address] Aug, Anxiety F41.9 [facility] [id number] [place] [address] Jul, Primary insomnia F51.01 [facility] [address] [address] Jul, [facility] [id number] [place] [address] Jul, Strep throat J02.0 [facility] [id number] [place] [address] Jul, Anxiety F41.9 [facility] [id number] [place] [address] Jun, Primary insomnia F51.01 ; Mood disorder F39 and Polyneuropathy G62.9 [facility] [id number] [place] [address] Jun, Anxiety F41.9 and Other chronic pain G89.29 [facility] [id number] [place] [address] May, Chronic obstructive pulmonary disease, unspecified COPD type J44.9 [facility] [id number] [place] [address] May, Anxiety F41.9 and Other chronic pain G89.29 [facility] [id number] [place] [address] Apr, Anxiety F41.9 and Other chronic pain G89.29 [facility] [id number] [place] [address] March, Morbid obesity due to excess calories E66.01 [facility] [id number] [place] [address] Feb, Morbid obesity due to excess calories E66.01 and SOB (shortness of breath) R06.02 [facility] [address] [place] [address] Feb, [facility] [id number] [place] [address] Jan, [facility] [id number] [place] [address] Jan, [facility] [id number] [place] [address] Jan, Morbid obesity due to excess calories E66.01 [facility] [id number] [place] [address] Jan, [facility] [address] [place] [address] Dec, [facility] [address] [place] [address] Dec, [facility] [address], [place] [address] Nov, [facility] [id number] [place] [address] Nov, [facility] [address], [place] [address] Oct, [facility] [address], [place] [address] Oct, Sore throat J02.9 and Strep throat J02.0 [facility] [address], [place] [address] Oct, [facility] [address], [place] [address] Oct, [facility] [id number] [place] [address] Oct, [facility] [address], [place] [address] Sep, [facility] [id number] [place] [address] Sep, [facility] [address] [place] [address] Aug, [facility] [id number] [place] [address] Aug, Morbid obesity, unspecified obesity type E66.01 ; Pain in right leg M79.604 ; Pain of left leg M79.605 ; Other chronic pain G89.29 and Low back pain M54.5 [facility] [address], [place] [address] Aug, [facility] [id number] [place] [address] Aug, [facility] [address] [address] Jul, [facility] [address], [place] [address] Jul, [facility] [address] [address] Jun, [facility] [address] [address] Jun, Anxiety F41.9 ; Chronic obstructive pulmonary disease, unspecified COPD type J44.9 ; Low back pain M54.5 and Other chronic pain G89.29 [facility] [address] [address] Jun, [facility] [address] [address] Jun, [facility] [id number] [place] [address] May, Other chronic pain G89.29 ; Pain in left knee M25.562 and Anxiety F41.9 [place] [id number] [place] [address] May, [facility] [id number] [place] [address] Apr, [place] [id number] [place] [address] March, MARIELENA (obstructive sleep apnea) G47.33 [place] [id number] [place] [address] Feb, [place] [id number] [place] [address] Feb, MARIELENA (obstructive sleep apnea) G47.33 and Acute upper respiratory infection, unspecified J06.9 [place] [id number] [place] [address] Feb, [facility] [id number] [place] [address] Jan, Pain in right leg M79.604 ; Pain of left leg M79.605 and Obesity E66.9 [facility] [address] [address] Jan, [place] [id number] [place] [address] Jan, [place] [id number] [place] [address] Jan, COPD exacerbation J44.1 ; 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 [id number] [place] [address] Dec, [facility] [address] [facility] [id number] [address] Dec, Hypertension, benign I10 ; Tachycardia R00.0 [...]
--- OUTSIDE RECORDS SUMMARY | 2019-06-16 13:18 | XMS REPORT ---
Author ARA Gonzales [facility] eClinicalWorks Address Unknown Phone Unavailable Care Team Providers Care Hemmer Automatic Name Role Phone ARA ISRAEL CP Unavailable Allergies, Adverse Reactions, Alerts Substance Reaction Event Type N.K.D.A. Info Not Available Non Drug Allergy Problems Problem Type Condition Code Onset Dates Condition Status Assessment Acute upper respiratory infection, unspecified J06.9 Active Assessment MARIELENA (obstructive sleep apnea) G47.33 Active Medications Medication Code System Code Instructions Start Date End Date Status Dosage Cetirizine HCl [facility] [address]-06 10 mg Orally Once a day March 06, 2016 Sep 02, 2016 1 tablet as needed [place] [facility] [address]-89 5-325 MG Orally every 6 hrs February 07, 2016 1 tablet as needed Lasix [facility] [address]-06 20 MG Orally Once a day 1 tablet Ondansetron [facility] [address]-46 8 MG Orally every 12 hrs February 07, 2016 1 tablet Metoprolol Tartrate [facility] [address]-94 50 MG Orally Twice a day 1 tablet Saxenda [facility] [address]-30 18 MG/3ML Subcutaneous Once a week January 20, 2016 April 19, 2016 3.0mg; start 0.6mg sc once per week, then increase by 0.6mg to goal dose of 3.0mg per week Symbicort [facility] [address]-42 160-4.5 MCG/ACT Inhalation Twice a day January 20, 2016 2 puffs Spiriva HandiHaler [facility] [address]-99 18 MCG Inhalation Once a day January 20, 2016 1 capsule Hydrochlorothiazide [facility] 69616220582 25 MG TAKE ONE TABLET BY MOUTH ONCE DAILY Lisinopril [facility] 36297443572 20 MG TAKE TWO TABLETS BY MOUTH ONCE DAILY Procedures Procedure Coding System Code Date Office Visit, Est Pt., Level 3 CPT-4 98658 March 06, 2016 Vital Signs Date/Time: March 06, 2016 Temperature 98.4 F Weight 372.0 lbs Height 66 in BMI 60.04 Index Blood Pressure Diastolic 100 mmHg Blood Pressure Systolic 150 mmHg Cardiac Monitoring Heart Rate 100 bpm Results No Known Results Summary Purpose eClinicalWorks Submission
--- OUTSIDE RECORDS SUMMARY | 2019-06-16 13:18 | XMS REPORT ---
Author Author TEE BROUSSARD Organization [facility] Address [address] [place] [address] Care Team Providers Care Patient Transition Specialist Name Role Phone TEE BROUSSARD Unavailable PROBLEMS Type Condition ICD9-CM Code [id number] Code Onset Dates Condition Status SNOMED Code Problem Other chronic pain G89.29 Active 12096834 Problem Morbid obesity, unspecified obesity type E66.01 Active 338618576 Problem Primary insomnia F51.01 Active 1654213 Problem Mood disorder F39 Active 37317802 Problem Anxiety F41.9 Active 15012592 Problem Morbid obesity due to excess calories E66.01 Active 971363072 Problem Polyneuropathy G62.9 Active 62880686 Problem Chronic obstructive pulmonary disease, unspecified COPD type J44.9 Active 87476536 ALLERGIES No Information SOCIAL HISTORY Never Assessed PLAN OF CARE VITAL SIGNS MEDICATIONS Medication Instructions Dosage Frequency Start Date End Date Duration Status [place] 7.5-325 MG Orally every 6 hrs 1 tablet as needed 6h Jan, 28 days Active RESULTS No Results PROCEDURES No Known procedures IMMUNIZATIONS No Known Immunizations MEDICAL (GENERAL) HISTORY Type Description Date Medical History Hx of pneumonia Medical History HTN Medical History chronic pain in knees and back Medical History anxiety Surgical History x2 Surgical History cholecystectomy Surgical History tubal ligation Hospitalization History [facility] Pneumonia 01/12/16
--- OUTSIDE RECORDS SUMMARY | 2019-06-16 13:19 | XMS REPORT | Continuity of Care Document ---
Author Organization Unknown Address Unknown Phone Unavailable Allergies Active Description Code Type Severity Reaction Onset Reported/Identified Relationship to Patient Clinical Status Yes No Known Drug Allergies [id number] Drug Allergy Unknown N/A 01/12/2016 Medications There is no data. Problems Date Dx Coded Attending Type Code Diagnosis Diagnosed By 01/14/2016 JOVANA ORELLANA MD Ot A41.9 01/14/2016 JOVANA ORELLANA MD Ot E66.01 01/14/2016 JOVANA ORELLANA MD Ot F17.210 01/14/2016 JOVANA ORELLANA MD Ot I10 01/14/2016 JOVANA ORELLANA MD Ot J11.00 01/14/2016 JOVANA ORELLANA MD Ot J20.9 01/14/2016 JOVANA ORELLANA MD Ot J96.21 01/14/2016 JOVANA ORELLANA MD Ot J96.22 01/14/2016 JOVANA ORELLANA MD Ot Z68.44 01/15/2016 JOVANA ORELLANA MD Ot A41.9 01/15/2016 JOVANA ORELLANA MD Ot E66.01 01/15/2016 JOVANA ORELLANA MD Ot F17.210 01/15/2016 JOVANA ORELLANA MD Ot I10 01/15/2016 JOVANA ORELLANA MD Ot J11.00 01/15/2016 JOVANA ORELLANA MD Ot J20.9 01/15/2016 JOVANA ORELLANA MD Ot J96.21 01/15/2016 JOVANA ORELLANA MD Ot J96.22 01/15/2016 JOVANA ORELLANA MD Ot Z68.44 01/16/2016 JOVANA ORELLANA MD Ot A41.9 01/16/2016 JOVANA ORELLANA MD Ot E66.01 01/16/2016 JOVANA ORELLANA MD Ot F17.210 01/16/2016 JOVANA ORELLANA MD Ot I10 01/16/2016 JOVANA ORELLANA MD Ot J11.00 01/16/2016 JOVANA ORELLANA MD Ot J20.9 01/16/2016 JOVANA ORELLANA MD Ot J96.21 01/16/2016 JOVANA ORELLANA MD Ot J96.22 01/16/2016 JOVANA ORELLANA MD Ot Z68.44 01/17/2016 JOVANA ORELLANA MD Ot A41.9 01/17/2016 JOVANA ORELLANA MD Ot E66.01 01/17/2016 JOVANA ORELLANA MD Ot F17.210 01/17/2016 JOVANA ORELLANA MD Ot I10 01/17/2016 JOVANA ORELLANA MD Ot J11.00 01/17/2016 JOVANA ORELLANA MD Ot J20.9 01/17/2016 JOVANA ORELLANA MD Ot J96.21 01/17/2016 JOVANA ORELLANA MD Ot J96.22 01/17/2016 JOVANA ORELLANA MD Ot Z68.44 01/17/2016 JOVANA ORELLANA MD Ot A41.9 01/17/2016 JOVANA ORELLANA MD Ot E66.01 01/17/2016 JOVANA ORELLANA MD Ot E66.2 MORBID (SEVERE) OBESITY WITH ALVEOLAR HY 01/17/2016 OJVANA ORELLANA MD Ot E87.2 ACIDOSIS 01/17/2016 JOVANA ORELLANA MD Ot F17.210 NICOTINE DEPENDENCE, CIGARETTES, UNCOMPL 01/17/2016 JOVANA ORELLANA MD Ot F41.9 ANXIETY DISORDER, UNSPECIFIED 01/17/2016 JOVANA ORELLANA MD Ot I10 ESSENTIAL (PRIMARY) HYPERTENSION 01/17/2016 JOVANA ORELLANA MD Ot I42.9 CARDIOMYOPATHY, UNSPECIFIED 01/17/2016 JOVANA ORELLANA MD Ot I50.9 HEART FAILURE, UNSPECIFIED 01/17/2016 JOVANA ORELLANA MD Ot J11.00 FLU DUE TO UNIDENTIFIED FLU VIRUS W UNSP 01/17/2016 JOVANA ORELLANA MD Ot J20.9 ACUTE BRONCHITIS, UNSPECIFIED 01/17/2016 JOVANA ORELLANA MD Ot J96.21 ACUTE AND CHRONIC RESPIRATORY FAILURE [place] 01/17/2016 JOVANA ORELLANA MD Ot J96.22 ACUTE AND CHRONIC RESPIRATORY FAILURE [place] 01/17/2016 JOVANA ORELLANA MD Ot Z68.44 BODY MASS INDEX (BMI) 60.0-69.9, ADULT 02/14/2017 ELMER RICO MD ([facility]) Ot Z02.71 ENCOUNTER FOR DISABILITY DETERMINATION 09/03/2017 ELMER RICO MD ([facility]) Ot Z02.71 ENCOUNTER FOR DISABILITY DETERMINATION 09/03/2017 ELMER RICO MD ([facility]) Ot E66.01 MORBID (SEVERE) OBESITY DUE TO EXCESS CA 09/03/2017 ELMER RICO MD ([facility]) Ot F32.9 MAJOR DEPRESSIVE DISORDER, SINGLE EPISOD 09/03/2017 ELMER RICO MD ([facility]) Ot F41.9 ANXIETY DISORDER, UNSPECIFIED 09/03/2017 ELMER RICO MD ([facility]) Ot I10 ESSENTIAL (PRIMARY) HYPERTENSION 09/03/2017 ELMER RICO MD ([facility]) Ot J44.9 CHRONIC OBSTRUCTIVE PULMONARY DISEASE, U 09/03/2017 ELMER RICO MD ([facility]) Ot R48.0 DYSLEXIA AND ALEXIA 09/03/2017 ELMER RICO MD ([facility]) Ot Z02.71 ENCOUNTER FOR DISABILITY DETERMINATION Procedures There is no data. Results Test Result Range CBC - 10/02/18 12:12 WHITE BLOOD CELL COUNT 11.5 Thousand/uL 3.8-10.8 RED BLOOD CELL COUNT 4.64 Million/uL 3.80-5.10 HEMOGLOBIN 15.2 g/dL 11.7-15.5 HEMATOCRIT 44.6 % 35.0-45.0 MCV 96.1 fL 80.0-100.0 MCH 32.8 pg 27.0-33.0 MCHC 34.1 g/dL 32.0-36.0 RDW 13.0 % 11.0-15.0 PLATELET COUNT 263 Thousand/uL 140-400 MPV 10.6 fL 7.5-12.5 ABSOLUTE NEUTROPHILS 7372 cells/uL 9778-9840 ABSOLUTE LYMPHOCYTES 3059 cells/uL 850-3900 ABSOLUTE MONOCYTES 679 cells/uL 200-950 ABSOLUTE EOSINOPHILS 311 cells/uL 15-500 ABSOLUTE BASOPHILS 81 cells/uL 0-200 NEUTROPHILS 64.1 % NRG LYMPHOCYTES 26.6 % NRG MONOCYTES 5.9 % NRG EOSINOPHILS 2.7 % NRG BASOPHILS 0.7 % NRG TSH - 10/02/18 12:12 TSH 8.67 mIU/L NRG PDM - 09 PANEL (PROFILE 1) - 10/02/18 12:12 Prescribed Drug 1 Clonazepam NRG Creatinine 165.3 mg/dL > or=20.0 pH 7.04 4.5 - 9.0 Oxidant NEGATIVE mcg/mL <200 Amphetamines NEGATIVE ng/mL <500 medMATCH Amphetamines CONSISTENT NRG Benzodiazepines NEGATIVE CONFIRMED ng/mL <100 Marijuana Metabolite NEGATIVE ng/mL <20 medMATCH Marijuana Metab CONSISTENT NRG Cocaine Metabolite NEGATIVE ng/mL <150 medMATCH Cocaine Metab CONSISTENT NRG Opiates POSITIVE ng/mL <100 Oxycodone NEGATIVE ng/mL <100 medMATCH Oxycodone CONSISTENT NRG COMMENT NRG Alphahydroxyalprazolam NEGATIVE ng/mL <25 medMATCH aOH alprazolam CONSISTENT NRG Alphahydroxymidazolam NEGATIVE ng/mL <50 medMATCH aOH midazolam CONSISTENT NRG Alphahydroxytriazolam NEGATIVE ng/mL <50 medMATCH aOH triazolam CONSISTENT NRG Aminoclonazepam NEGATIVE ng/mL <25 medMATCH Aminoclonazepam INCONSISTENT NRG Hydroxyethylflurazepam NEGATIVE ng/mL <50 medMATCH OH,Et flurazepam CONSISTENT NRG Lorazepam NEGATIVE ng/mL <50 medMATCH Lorazepam CONSISTENT NRG Nordiazepam NEGATIVE ng/mL <50 medMATCH Nordiazepam CONSISTENT NRG Oxazepam NEGATIVE ng/mL <50 medMATCH Oxazepam CONSISTENT NRG Temazepam NEGATIVE ng/mL <50 medMATCH Temazepam CONSISTENT NRG Codeine NEGATIVE ng/mL <50 medMATCH Codeine CONSISTENT NRG Hydrocodone 3347 ng/mL <50 medMATCH Hydrocodone CONSISTENT NRG Hydromorphone NEGATIVE ng/mL <50 medMATCH Hydromorphone CONSISTENT NRG Morphine NEGATIVE ng/mL <50 medMATCH Morphine CONSISTENT NRG Norhydrocodone NEGATIVE ng/mL <50 medMATCH Norhydrocodone CONSISTENT NRG Prescribed Drug 2 [place](TM) NRG Barbiturates NEGATIVE ng/mL <300 medMATCH Barbiturates CONSISTENT NRG Methadone Metabolite NEGATIVE ng/mL <100 medMATCH Methadone Metab CONSISTENT NRG Phencyclidine NEGATIVE ng/mL <25 medMATCH Phencyclidine CONSISTENT NRG Encounters ACCT No. Visit Date/Time Discharge Status Pt. Type Provider Facility Loc./Unit Complaint [id number] 04/23/2019 12:20:00 04/23/2019 23:59:59 CLS Out[facility] [id number] 10/02/2018 11:40:00 Document Registration [id number] 09/03/2017 14:46:00 09/03/2017 23:59:59 CLS Outpatient ELMER RICO MD ([facility]) [facility] RT COPD [id number] 03/30/2017 13:34:00 03/30/2017 23:59:59 CLS Outpatient ELMER RICO MD ([facility]) [facility] RT DDU [id number] 02/14/2017 12:30:00 02/14/2017 23:59:59 CLS Outpatient ELMER RICO MD ([facility]) [facility] RAD DDU-COPD,HTN,MORBID OBESITY [id number] 01/12/2016 12:44:00 01/17/2016 14:17:00 DIS Inpatient JOVANA ORELLANA MD [facility] 4TH PULM EDEMA HYPOXIA
--- OUTSIDE RECORDS SUMMARY | 2019-06-16 13:19 | XMS REPORT ---
Author Author ARA ISRAEL Organization [facility] Address [address] [place] [address] Care Team Providers Care Electrical Tests Supervisor Name Role Phone ARA ISRAEL Unavailable PROBLEMS Type Condition ICD9-CM Code PQS02-VJ Code Onset Dates Condition Status SNOMED Code Problem Other chronic pain G89.29 Active 32613929 Problem Morbid obesity, unspecified obesity type E66.01 Active 528890560 Problem Primary insomnia F51.01 Active 1691380 Problem Mood disorder F39 Active 49618928 Problem Anxiety F41.9 Active 46795907 Problem Morbid obesity due to excess calories E66.01 Active 127001848 Problem Polyneuropathy G62.9 Active 55651214 Problem Chronic obstructive pulmonary disease, unspecified COPD type J44.9 Active 22600188 ALLERGIES No Information ENCOUNTERS Encounter Location Date Diagnosis [facility] [id number] [place] [address] Feb, Chronic obstructive pulmonary disease, unspecified COPD type J44.9 [facility] [id number] [place] [address] Feb, [facility] [id number] [place] [address] Feb, [facility] [id number] [place] [address] Feb, Anxiety F41.9 [facility] [id number] [place] [address] Jan, Anxiety F41.9 [facility] [id number] [place] [address] Dec, Anxiety F41.9 [facility] [id number] [place] [address] Dec, [facility] [id number] [place] [address] Nov, BMI 50.0-59.9, adult Z68.43 ; Other chronic pain G89.29 ; Anxiety F41.9 and Vagina, candidiasis B37.3 [facility] [address] [address] Nov, Anxiety F41.9 [facility] [address] [address] Nov, Acute nasopharyngitis J00 and BMI 50.0-59.9, adult Z68.43 [facility] [address] [address] Nov, [facility] [address] [address] Oct, Anxiety F41.9 [facility] [address] [address] Oct, [facility] [address] [address] Sep, Anxiety F41.9 [facility] [id number] [place] [address] Sep, [facility] [address] [address] Sep, Anxiety F41.9 [facility] [address] [address] Aug, Primary insomnia F51.01 [facility] [address] [address] Aug, [facility] [address] [address] Aug, Anxiety F41.9 [facility] [address] [address] Jul, Primary insomnia F51.01 [place] [id number] [place] [address] Jul, [place] [address] [address] Jul, Strep throat J02.0 [place] [address] [address] Jul, Anxiety F41.9 [place] [address] [address] Jun, Primary insomnia F51.01 ; Mood disorder F39 and Polyneuropathy G62.9 [place] [address] [address] Jun, Anxiety F41.9 and Other chronic pain G89.29 [place] [address] [address] May, Chronic obstructive pulmonary disease, unspecified COPD type J44.9 [place] [address] [address] May, Anxiety F41.9 and Other chronic pain G89.29 [place] [id number] [place] [address] Apr, Anxiety F41.9 and Other chronic pain G89.29 [place] [address] [address] March, Morbid obesity due to excess calories E66.01 [place] [id number] [place] [address] Feb, Morbid obesity due to excess calories E66.01 and SOB (shortness of breath) R06.02 [place] [id number] [place] [address] Feb, [place] [address] [address] Jan, [facility] [id number] [address] Jan, [facility] [address] [address] Jan, Morbid obesity due to excess calories E66.01 [facility] [id number] [address] Jan, [facility] [address] [facility] [id number] [address] Dec, [facility] [id number] [place] [address] Dec, [facility] [address] [address] Nov, [facility] [address] [address] Nov, [facility] [address] [address] Oct, [facility] [address] [address] Oct, Sore throat J02.9 and Strep throat J02.0 [facility] [address] [address] Oct, [facility] [address] [address] Oct, [facility] [id number] [address] Oct, [facility] [address] [address] Sep, [facility] [address] [address] Sep, [facility] [address] [address] Aug, [facility] [address] [address] Aug, Morbid obesity, unspecified obesity type E66.01 ; Pain in right leg M79.604 ; Pain of left leg M79.605 ; Other chronic pain G89.29 and Low back pain M54.5 [facility] [id number] [place] [address] Aug, [facility] [id number] [place] [address] Aug, [facility] [id number] [place] [address] Jul, [facility] [id number] [place] [address] Jul, [facility] [id number] [place] [address] Jun, [facility] [address] [address] Jun, Anxiety F41.9 ; Chronic obstructive pulmonary disease, unspecified COPD type J44.9 ; Low back pain M54.5 and Other chronic pain G89.29 [facility] [address] [address] Jun, [facility] [address] [address] Jun, [facility] [id number] [address] May, Other chronic pain G89.29 ; Pain in left knee M25.562 and Anxiety F41.9 [facility] [address] [address] May, [facility] [id number] [place] [address] Apr, [place] [id number] [place] [address] March, MARIELENA (obstructive sleep apnea) G47.33 [place] [id number] [place] [address] Feb, [place] [id number] [place] [address] Feb, MARIELENA (obstructive sleep apnea) G47.33 and Acute upper respiratory infection, unspecified J06.9 [place] [id number] [place] [address] Feb, [place] [id number] [place] [address] Jan, Pain in right leg M79.604 ; Pain of left leg M79.605 and Obesity E66.9 [id number] [place] [address] Jan, [place] [id number] [place] [address] Jan, [id number] [place] [address] Jan, COPD exacerbation J44.1 ; 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 ; Resistant hypertension I10 ; Nonischemic cardiomyopathy I42.9 and Anxiety about health F41.8 [place] [id number] [place] [address] Dec, [id number] [place] [address] Dec, Hypertension, benign I10 ; Tachycardia R00.0 ; Anxiety F41.9 and Pain in unspecified knee M25.569 IMMUNIZATIONS No Known Immunizations SOCIAL HISTORY Never Assessed REASON FOR VISIT Controlled Med Refill 07/26/17 PLAN OF CARE VITAL SIGNS MEDICATIONS Medication Instructions Dosage Frequency Start Date End Date Duration Status Clonazepam 0.5 MG Orally Twice a day 1 tablet 12h 29 May, 2016 28 days Active RESULTS No Results PROCEDURES [...]
[2019-06-16] MEDS ORDERED: AMIT10TA6 PO (13:37)
[2019-06-16] MEDS ORDERED: TIOT18CA2 IH (13:37)
[2019-06-16] MEDS ORDERED: BUDE10.2 IH (13:37)
[2019-06-16] MEDS ORDERED: LEVO75TA6 PO (13:37)
--- NOTE | 2019-06-16 13:39 | NUR ---
Patient up to commode. She states she has been able to have a small BM and is continuing to go in small amounts.
[2019-06-16] MEDS ORDERED: MILK OF MAGNESIA 400 MG/5 ML 30 ML UDC PO ONE (13:45)
[2019-06-16 14:14] VITALS: BP 111/60
== END 2019-06-16 14:17 | disposition home or self-care (01) ==
LOC: EDUNIT# 12:31 → ER 12:32
DX: K59.03 Drug induced constipation (principal); Z91.14 Patient's other noncompliance with medication regimen; Z98.51 Tubal ligation status
CPT/HCPCS: 99283